=== PATIENT | female | born 1980 | race Caucasian/White ===

== ENCOUNTER 2024-05-04 12:26 | Emergency (ER) | payer OTHER, SELFPAY ==
[2024-05-04] VITALS (11 sets, daily range): BP systolic 106–129; BP diastolic 62–83; PULSE 71–96; RESP 16–23; TEMP 36.8; O2SAT 96–100
--- OUTSIDE RECORDS SUMMARY | 2024-05-04 13:30 | XMS_ITS | Encounter Summary ---
Author Name [facility] [place] [facility] [place] [facility] [place] [facility] [place] Address [address] [place] [address] Care Team Providers Care Outbound Call Center Representative Name Role Phone DAMION STEWART Primary Care Provider Unavailab le Selected Encounter This section includes the information on record at [place] for the Encounter. Date/Time Encounter Type Encounter Description Reason Provider Source Apr 11, 2024 02:15 PM LARYNGOSCOPY TELESCOPIC SPEECH-LANGUAGE PATHOLOGY ICD-10-CM R49.8 Other voice and resonance disorders RACHEL ESPINAL Encounter Template Text not used by [place] Assessments - Encounter Diagnoses This section includes the primary and secondary diagnoses documented for the Encounter. Date/Time Primary/Secondary Diagnosis Diagnosis Name Provider Source Apr 11, 2024 03:12 PM PRIMARY Other voice and resonance disorders KRISTA SEGURA [facility] Plan of Treatment: Future Appointments (+ 6 months) and Future Tests (+/- 45 days) The Plan of Treatment section includes future care activities for the patient from all [place] treatmentfacilities. This section includes future appointments and future orders which are active, pending or scheduled. Future Appointments This section includes appointments that were scheduled to occur 6 months from the date of the Encounter, up to a maximum of 20 appointments. The data comes from all [facility] treatment [facility]. Appointment Date/Time Appointment Type Appointme nt Facility Name Apr 26, 2024 03:00 PM AMBULATORY - MEDICINE [facility] Apr 29, 2024 12:30 PM AMBULATORY - MEDICINE [facility] May 04, 2024 04:15 PM AMBULATORY - MEDICINE [facility] May 24, 2024 02:00 PM AMBULATORY - MEDICINE [facility] May 24, 2024 03:00 PM AMBULATORY - SURGERY [facility] Jul 12, 2024 02:30 PM [facility] Aug 04, 2024 11:30 AM AMBULATORY - SURGERY [facility] Active, Pending, and Scheduled Orders This section includes a listing of several types of active, pending, and scheduled orders, including clinic medications orders, diagnostic test orders, procedure orders and consult orders; where thestart date of the order is 45 days before the date of the Encounter or 45 days after the date of the Encounter. The data comes from all [facility]. Test Date/Time Test Type Test Details Facility Name Apr 11, 2024 04:42 PM Consult Order ALLERGY OU TPT STL Cons Hot Top Liner's Choice [facility] Apr 19, 2024 04:58 PM Procedure Order HOLTER MON ITOR STL CP HOLTER MONITOR STL Proc Hot Top Liner's [facility] Apr 29, 2024 12:00 AM Laboratory - Chemi stry Order HEP C Ab HCV Ab (L) GOLD/RED SST SERUM SP [facility] Apr 29, 2024 01:45 PM Consult Order GYNECOLOGY SERVICES OUTPT Cons [employer] [facility] Apr 29, 2024 01:45 PM Consult Order NEUROLOGY OUTPATIENT [place] Cons [employer] [facility] Apr 29, 2024 01:45 PM Consult Order COMMUNITY CARE-STL SLEEP STUDY Cons [employer] Choice [facility] Lab Results: +/- 30 days of the encounter This section includes the Chemistry and Hematology Lab Results on record with [facility] for the patient. Radiology Reports and Pathology Reports are provided separately, in subsequent sections. Lab Results This section contains the Chemistry/Hematology Results that were resulted 30 days before or 30 daysafter the date of the Encounter. Date/Time Source Result Type Result - Unit Interpretation Reference Range Comment Apr 29, 2024 01:43 PM [facility] TSH W/ REFLEX FT4 (STL) Specimen Type: PLASMA No comment entered. Ordering Provider: LUCIA STEWART Report Released Date/Time: Apr 29, 2024 01:29 PM Reporting Lab: [facility] [address] [place] [phone] Performing Lab: [facility] [address] [place] [phone] TSH 1.940 u[IU]/mL 0.47-5 Apr 29, 2024 01:43 PM [facility] HGA1C Specimen Type: BLOOD No comment entered. Ordering Provider: LUCIA STEWART Report Released Date/Time: Apr 29, 2024 01:29 PM Reporting Lab: [facility] [address] [place] [phone] Performing Lab: [facility] [phone] HGA1C 6.2 H 4.0-6.0 Apr 29, 2024 01:43 PM [facility] LIPID PANEL (STL) Specimen Type: PLASMA Comment: No hemolysis noted. Ordering Provider: LUCIA STEWART Report Released Date/Time: Apr 29, 2024 01:29 PM Reporting Lab: [facility] [address] [place] [phone] Performing Lab: [facility] [address] [place] [phone] CHOLESTEROL 193 mg/dL 0-200 TRIGLYCERIDE 205 mg/dL H 0-150 CALCULATED LDL 112 mg/dL HDL(New) 40 mg/dL >40 Apr 29, 2024 01:43 PM [facility] COMPREHENSIVE METABOLIC PANEL Specimen Type: PLASMA Comment: No hemolysis noted. Ordering Provider: LUCIA STEWART Report Released Date/Time: Apr 29, 2024 01:29 PM Reporting Lab: [facility] [address] [place] [facility] [phone] Performing Lab: [facility] [address] [place] [facility] [phone] CREATININE 0.71 mg/dL 0.6-1.1 UREA NITROGEN 14.0 mg/dL 9.0-25.0 GLUCOSE 83 mg/dL 72-99 SODIUM 137 meq/L 136-145 POTASSIUM 3.9 meq/L 3.5-5 CHLORIDE 107 meq/L 98-107 CARBON DIOXIDE 19 meq/L L 22-31 CALCIUM 9.2 mg/dL 8.4-10.4 PROTEIN 7.7 g/dL 6-8.6 ALBUMIN 4.3 g/dL 3.4-5 TOTAL BILIRUBIN 0.2 mg/dL 0.2-1.2 ALKALINE PHOSPHATASE 113 U/L 40-150 AST/SGOT 45 U/L H 5-34 ALT/SGPT 13 U/L 8-40 EGFR (CKD-EPI 2020) 109.5 >60 Apr 29, 2024 01:43 PM [facility] CBC Specimen Type: BLOOD No comment entered. Ordering Provider: LUCIA STEWART Report Released Date/Time: Apr 29, 2024 01:29 PM Reporting Lab: [facility] [address] [place] [phone] Performing Lab: [address] [phone] WBC 9.3 10*3/uL 3.6-11.2 RBC 5.14 10*6/uL H 3.60-5.00 HGB 12.4 g/dL 11.0-14.9 HCT 39.8 32.6-43.4 MCV 77.4 fL L 80.0-100.0 MCH 24.1 pg L 27.0-34.0 MCHC 31.2 g/dL L 33.0-36.0 PLT 372 10*3/uL 150-400 MPV 9.4 fL 7.5-11.2 RDW 15.5 H 11.8-15.1 LYMPHOCYTES, AUTO % 32 MONOCYTES, AUTO % 7 NEUTROPHILS, AUTO % 58 EOSINOPHILS, AUTO % 2 BASOPHILS, AUTO % 0 LYMPHOCYTES, ABSOLUTE 2.94 10*3/uL 0.77-4.50 MONOCYTES, ABSOLUTE 0.68 10*3/uL 0.19-0.80 NEUTROPHILS, ABSOLUTE 5.37 10*3/uL 2.10-8.00 EOSINOPHILS, ABSOLUTE 0.20 10*3/uL 0.00-0.60 BASOPHILS, ABSOLUTE 0.03 10*3/uL 0.00-0.20 Vital Signs: All taken on the encounter date This section contains inpatient and outpatient Vital Signs collected on the date of the Encounter. Date/Time Temperature Pulse Blood Pressure Respiratory Rate SP02 Pain Height Weight Body Mass Index Source Apr 11, 2024 02:08 PM 97.5 106 128/85 16 97 0 [facility] Social History: Smoking Status (Most current) and Tobacco Use (All prior to encounter date) This section includes the most current, and the historical, smoking and tobacco- related health factors from the [place] facility where the Encounter took place. Current Smoking Status This section includes the most current smoking, or tobacco-related health factor, from the [place] facility where the Encounter took place. Date/Time Current Smoking Status Comment Facil ity Apr 21, 2022 02:46 PM [place]-TOBACCO FORMER USER [facility] Tobacco Use History This section includes a history of the smoking, or tobacco-related health factors, that were collected on or before the date of the Encounter. The data comes from the [place] facility where the Encounter took place. Date/Time Smoking Status/Tobacco Use Comment F acility Apr 21, 2022 02:46 PM [place]-TOBAC[place] QUIT 5 TO < 15 YRS [facility] Mar 06, 2016 10:40 AM LIFETIME NON-USER OF TOBACCO [facility] Advance Directives: All historical and current Section Date Range: From patient's date of to the date document was created. This section includes ALL of a patient's completed or amended [place] Advance and Rescinded Directives. The entries below indicate that a directive exists for the patient, but an actual copy is not included with this document. The data comes from all [place] facilities. Date Advance Directives Provider Source Apr 06, 2015 ADVANCE DIRECTIVE DISCUSSION [facility] Encounter Notes: All associated encounter notes This section contains the clinical notes associated to the Encounter. Date/Time Encounter Note(s) Provider Source Apr 11, 2024 03:05 PM SPEECH PATHOLOGY C ONSULT: LOCAL TITLE: SPEECH CONSULT STL STANDARD TITLE: SPEECH PATHOLOGY CONSULT DATE OF NOTE: APR 11, 2024@15:05 ENTRY DATE: APR 11, 2024@15:05:57 AUTHOR: RACHEL ESPINAL COSIGNER: SHERYL RICHARD URGENCY: STATUS: COMPLETED SPEECH PATHOLOGY VIDEOLARYNGOSCOPY NAME: ALIX GRIMES DATE:APR 11, 2024 PURPOSE OF VISIT: video laryngoscopy DIAGNOSIS: Other voice disturbance RELEVANT HISTORY: Patient reports voice graveling especially when she sings or presents. PATIENT STATED GOAL: none CONSENT: Patient consented to treatment plan. TRACH STATUS: NO SCOPE: __x__Olympus Flexible ____Olympus Rigid PROCEDURE: The scope was inserted after application of Lidocaine spray topical anesthesia, the exam completed, and the scope withdrawn without difficulty or complaint. PREVIOUS EXAMS: n/a CURRENT APPEARANCE: TVCs were smooth/even in color and appearance. Airway was widely patent. BOT, epiglottis, and arytenoids were clear. CURRENT FUNCTION: TVCs were mobile, met at midline for phonation, and presented with full adduction and abduction. MUCOSAL WAVE: Throat lc was placed on patients neck to obtain view of mucosal wave. Patients mucosal wave was present and symmetric. VOICAL QUALITY: Within normal limits EDUCATION PROVIDED: Patient was educated on the results of exam RESPONSE TO EDUCAITON: Patient verbally acknowledged/demonstrated understanding of all education provided this session. GOALS: n/a BARRIERS TO ACHIEVEMENT OF GOALS: n/a PLAN: Evaluate as indicated by ENT /glen/ Rachel Espinal MS, [facility]-INFORMATION ASSURANCE ENGINEER Speech Pathologist, Speech Language Pathology Signed: 04/11/2024 15:19 /glen/ SHERYL RICHARD MD Staff Physician, Otolaryngology Cosigned: 04/11/2024 18:16 RACHEL ESPINAL [facility]
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
--- OUTSIDE RECORDS SUMMARY | 2024-05-04 13:31 | XMS_ITS | Continuity of Care Document ---
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 It does not include entries that were removed or entered in error. 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
02/2003-2004 [place], 09/2005-12/2006 [place], 03/2013-11/2103 [place] Unknown Organization Insomnia Active 020 Condition Unknown Organization Fibromyalgia Active 020 Condition Unknown Organization Irritable bowel syndrome Active 020 Condition Unknown Organization Prediabetes Active 018 Condition Unknown Organization Gynecological examination normal Active 017 Condition Unknown Organization Family planning Active 017 Condition Unknown Organization Anxiety disorder Active 017 Condition Unknown Organization FH: Autoimmune disease Active 017 Condition Unknown Organization Headache Active 017 Condition Unknown Organization Tachycardia Active 017 Condition Unknown Organization Ankle pain Active 017 Condition Unknown Organization Chronic rhinitis Active 016 Condition Unknown Organization Dyspnea on exertion Active 016 Condition Unknown Organization Multiple pulmonary nodules2 Active 016 Condition 03/17/2019 - WEEKS,TOM L
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) Active 013 Condition Unknown Organization Abdominal Pain of the Right Lower Quadrant (ICD-9-CM 789.03) Active 013 Condition Unknown Organization 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) Active 012 Condition Unknown Organization Acute bronchitis (ICD-9-CM 466.0) Active 011 Condition Unknown Organization Pharyngitis * (ICD-9-CM 462.) Active 011 Condition Unknown Organization Asthma, unspecified Active 011 Condition Unknown Organization Goiter * (ICD-9-CM 240.9) Active 011 Condition Unknown Organization Low back pain Active 011 Condition Unknown Organization Hypersensitivity reaction (ICD-9-CM 995.3) Active 011 Condition Unknown Organization Knee: arthralgia * (ICD-9-CM 719.46) Active 011 Condition Unknown Organization Vaginitis * (ICD-9-CM 616.10) Active 011 Condition Unknown Organization Ankle sprain (ICD-9-CM 845.09) Active 010 Condition Unknown Organization Allergic rhinitis * (ICD-9-CM 477.9) Active 010 Condition Unknown Organization Chronic maxillary sinusitis (ICD-9-CM 473.0) Active 009 Condition Unknown Organization Decreased, vision NEC (ICD-9-CM 369.9) Active 009 Condition Unknown Organization Pain in joint involving shoulder region4 Active 009 Condition 07/27/2008 - FIDELIA PANG
Right Unknown Organization Constipation, unspecified Active 009 Condition Unknown Organization Environmental Allergies Active 009 Condition Unknown Organization Hemorrhoids Active 009 Condition Unknown Organization Dermatitis or Eczema Active 009 Condition Unknown Organization Traumatic neurosis3 Active 009 Condition 03/01/2019 - BALJINDER SEVILLA
History of deployment psychological trauma, history of PTSD, currently meets cirteria for Other Specified Trauma-Related Disorder with prediminant anxiety symptoms Unknown Organization Inactive 008 Condition 07/15/2010 May 03, 2008 Entered By: FIDELIA PANG MD Comment: Expected due date: 08/26/2008 [facility] Shoulder Surgery Active 008 Condition Jul 27, 2008 Entered By: FIDELIA PANG MD Comment: Right [facility] Abdominal Pain of the Right Lower Quadrant (ICD-9-CM 789.03) Active Condition [facility] Abnormal cervical Papanicolaou smear Active Condition [facility] Acute bronchitis (ICD-9-CM 466.0) Active Condition [facility] Acute sinusitis Active Condition [facility] Allergic rhinitis * (ICD-9-CM 477.9) Active Condition [facility] Ankle pain Active Condition [facility] Ankle sprain (ICD-9-CM 845.09) Active Condition [facility] Anxiety disorder Active Condition [facility] Asthma, unspecified Active Condition [facility] Benign neoplasm of female breast (SNOMED CT 86612305) Active Condition [facility] Chronic maxillary sinusitis (ICD-9-CM 473.0) Active Condition [facility] Chronic post-traumatic stress disorder Active Condition [facility] Chronic rhinitis Active Condition [facility] Cognitive disorder Active Condition [facility] Constipation, unspecified Active Condition [facility] Contraception, counseling NEC (ICD-9-CM V25.09) Active Condition [facility] Cyst of thyroid Active Condition [facility] Decreased, vision NEC (ICD-9-CM 369.9) Active Condition [facility] Dermatitis or Eczema Active Condition [facility] Dyspnea on exertion Active Condition [facility] Environmental Allergies Active Condition [facility] Exposure to potentially hazardous substance Active Condition [facility] Family planning Active Condition [facility] FH: Autoimmune disease Active Condition [facility] Fibromyalgia Active Condition [facility] Goiter * (ICD-9-CM 240.9) Active Condition [facility] Atlantic war syndrome Active Condition [facility] Gynecological examination normal Active Condition [facility] Headache Active Condition [facility] Hemorrhoids Active Condition [facility] History of deployment Active Condition Mar 01, 2019 Entered By: BALJINDER SEVILLA Comment: 02/2003-02/2004 [place], 09/2005-12/2006 [place], 03/2013-11/2103 [place] [facility] history of recurrant perianal abcess Active Condition [facility] House dust mite allergy Active Condition [facility] Hypersensitivity reaction (ICD-9-CM 995.3) Active Condition [facility] IBS - Irritable bowel syndrome Active Condition [facility] Insomnia Active Condition [facility] Irritable bowel syndrome Active Condition [facility] Knee: arthralgia * (ICD-9-CM 719.46) Active Condition [facility] Low back pain Active Condition [facility] Low Back Pain * (ICD-9-CM 724.2) Active Condition [facility] Multiple pulmonary nodules Active Condition [facility] Multiple pulmonary nodules Active Condition Mar 17, 2019 Entered By: TOM RM Comment: Seen on CT CHEST JULY 2015 [facility] Otitis Media with Effusion * (ICD-9-CM 381.4) Active Condition [facility] Pain in joint involving shoulder region Active Condition Jul 27, 2008 Entered By: FIDELIA PANG MD Comment: Right [facility] Palpitations Active Condition [facility] Pharyngitis * (ICD-9-CM 462.) Active Condition [facility] Posttraumatic Stress Disorder * (ICD-9-CM 309.81) Active Condition [facility] Prediabetes Active Condition [facility] Routine Gynecological examination (ICD-9-CM V72.31) Active Condition [facility] Tachycardia Active Condition [facility] 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) Active Condition [facility] Traumatic neurosis Active Condition J an 2019 Entered By: BALJINDER SEVILLA Comment: History of deployment psychological trauma, history of PTSD, currently meets cirteria for Other Specified Trauma-Related Disorder with prediminant anxiety symptoms [facility] Unspecified Psychosocial Circumstance Active Condition [facility] 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-CM 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.15) Active Condition June 23, 2012 Entered By: STACI ZHAO Comment: repeat Pap in June of 2013; if HPV pos will get colpoMay 2012 Entered By: STACI ZHAO Comment: even if Pap smear is still negative [facility] Vaginal Neoplasm (ICD-9-CM 239.5) Active Condition [facility] Vaginitis * (ICD-9-CM 616.10) Active Condition [facility] Vitamin D deficiency Active Condition [facility] Adjustment Disorder with Mixed Anxiety and Depressed Mood (ICD-9-CM 309.28) Inactive Condition 07/15/2010 [facility] Anxiety * (ICD-9-CM 300.00/300.09) Inactive Condition 07/15/2010 [facility] Major Depression, recurrent (ICD-9-CM 296.30) Inactive Condition 07/15/2010 [facility] Panic Disorder * (ICD-9-CM 300.01) Inactive Condition 07/15/2010 [facility] Diagnosis: ICD-10-CM R00.0 Tachycardia, unspecified Active Diagnosis [facility] Diagnosis: ICD-10-CM R49.0 Dysphonia Active Diagnosis [facility] Diagnosis: ICD-10-CM R49.8 Other voice and resonance disorders Active Diagnosis [facility] Diagnosis: ICD-10-CM F43.12 Post-traumatic stress disorder, chronic Active Diagnosis [facility] Diagnosis: ICD-10-CM Z63.0 Problems in relationship with spouse or partner Active Diagnosis [facility] Diagnosis: ICD-10-CM Z71.81 Spiritual or zoroastrian counseling Active Diagnosis [facility] Diagnosis: ICD-10-CM Z63.4 Disappearance and of family member Active Diagnosis [facility] Diagnosis: ICD-10-CM F43.23 Adjustment disorder with mixed anxiety and depressed mood Active Diagnosis [facility] Diagnosis: ICD-10-CM F32.A Depression, unspecified Active Diagnosis [facility] Diagnosis: ICD-10-CM N97.9 Female infertility, unspecified Active Diagnosis [facility] Medications Combined list of outpatient medications from Department of Defense and [facility] Affairs facilities.Medications provided include 1) outpatient medications from the last 15 months, and 2) patient-reported medications. Medication Details Route Status Patient Instructions Prescription Expires Prescription Number Last Dispense Date Ordering Provider Order Date Order Qty Source ALBUTEROL SO4 0.083% INHL,3ML INHALE 1 VIAL (2.5MG/3 ML) BY NEBULIZA TION EVERY 6 HOURS NEEDED FOR ASTHMA NEBULI ZATION SUSPEND ED 12/01/2024 [id number] DEPEFRAINS UZAMEDINAE 2023 30 [facility] ALBUTEROL SO4 90MCG/ACTUA T (CFC-F) INHL,ORAL,8 .5GM INHALE 2 PUFFS BY ORAL INHALATI ON FOUR TIMES A DAY NEEDED FOR ASTHMA SHAKE WELL. RINSE MOUTHPIE CE FREQUENT LY TO PREVENT CLOGGING . RESPIR ATORY (INHAL ATION) SUSPEND ED 12/01/2024 [id number] DEPAURADHA,S UZANNE 2023 2 [facility] CELECOXIB 200MG CAP TAKE ONE CAPSULE BY MOUTH ONCE A DAY FOR PAIN - TAKE WITH FOOD ORAL ACTIVE 12/01/2024 [id number] 5 DEPAULO,S UZANNE 2024 90 [facility] CELECOXIB 200MG CAP TAKE ONE CAPSULE BY MOUTH ONCE A DAY FOR PAIN - TAKE WITH FOOD ORAL DISCONT INUED 03/03/2024 [id number] Pieter STEWART 2023 90 [facility] CETIRIZINE HCL 10MG TAB TAKE ONE TABLET BY MOUTH ONCE A DAY FOR ALLERGY SYMPTOMS . ORAL SUSPEND ED 12/01/2024 [id number] 5 Pieter STEWART 2023 90 [facility] CETIRIZINE HCL 10MG TAB TAKE ONE TABLET BY MOUTH ONCE A DAY FOR ALLERGY SYMPTOMS . ORAL DISCONT INUED 11/04/2023 [id number] BINH BELLAMY 2022 30 [facility] CHOLECALCIF MOMO 50MCG (2,000UNIT) TAB TAKE TWO TABLETS BY MOUTH ONCE A DAY FOR VITAMIN D DEFICIEN CY. ORAL SUSPEND ED 12/01/2024 [id number] 5 TALONPieter 2023 200 [facility] CHOLECALCIF MOMO 50MCG (2,000UNIT) TAB TAKE TWO TABLETS BY MOUTH ONCE A DAY FOR VITAMIN D DEFICIEN CY. ORAL DISCONT INUED 11/04/2023 [id number] 4 BINH BELLAMY 2022 200 [facility] DIPHENHYDRA MINE HCL 25MG CAP TAKE ONE CAPSULE BY MOUTH TWICE DAILY NEEDED ANXIETY/ INSOMNIA *MAY CAUSE DROWSINE SS* ORAL 12/13/2023 [id number] LEWIS BAUTISTA 2023 1 [facility] N DULOXETINE HCL 20MG CAP,EC TAKE TWO CAPSULES BY MOUTH TWICE A DAY FOR DEPRESSI ON DO NOT ABRUPTLY DISCONTI NUE MEDICATI ON. ORAL ACTIVE 11/03/2024 [id number] 5 LEWIS BAUTISTA 2023 360 [facility] N DULOXETINE HCL 20MG CAP,EC TAKE TWO CAPSULES BY MOUTH ONCE A DAY FOR FIBROMYA LGIA DO NOT ABRUPTLY DISCONTI NUE MEDICATI ON. ORAL DISCONT INUED (EDIT) 11/04/2023 [id number] 4 BINH BELLAMY A 2022 180 [facility] DULOXETINE HCL 60MG CAP,EC TAKE ONE CAPSULE BY MOUTH ONCE A DAY DO NOT ABRUPTLY DISCONTI NUE MEDICATI ON. ORAL ACTIVE 01/05/2025 [id number] LEWIS BAUTISTA 2023 90 [facility] N DULOXETINE HCL 60MG CAP,EC TAKE ONE CAPSULE BY MOUTH ONCE A DAY FOR DEPRESSI ON DO NOT ABRUPTLY DISCONTI NUE MEDICATI ON. ORAL DISCONT INUED 11/13/2024 [id number] LEWIS BAUTISTA 2023 90 [facility] DULOXETINE HCL 60MG CAP,EC TAKE ONE CAPSULE BY MOUTH ONCE A DAY DO NOT ABRUPTLY DISCONTI NUE MEDICATI ON. ORAL DISCONT INUED (EDIT) 07/23/2024 [id number] 4 LEWIS BAUTISTA 2023 90 [facility] N DULOXETINE HCL 60MG CAP,EC TAKE ONE CAPSULE BY MOUTH ONCE A DAY DO NOT ABRUPTLY DISCONTI NUE MEDICATI ON. ORAL DISCONT INUED 05/22/2024 [id number] Pieter STEWART 2023 90 [facility] EPINEPHRINE (EQV-ADRENA CLICK) 0.3MG/0.3ML INJECTOR INJECT 1 PEN (0.3MG/0 .3ML) INTRAMUS CULARLY ONE-TIME FOR ALLERGIC REACTION INTRAM USCULA R 06/18/2023 [id number] BINH BELLAMYA A 2022 2 [facility] METHOCARBAM OL 500MG TAB TAKE 1 TABLET BY MOUTH FOUR TIMES A DAY NEEDED FOR MUSCLE SPASM ORAL 03/03/2024 [id number] Pieter STEWART 2023 60 [facility] METHYLPREDN ISOLONE 4MG TAB DOSEPAK,21 TAKE ONE TABLET BY MOUTH DIRECTED ORAL ACTIVE YENNI ZHAO 2010 [facility] METOPROLOL SUCCINATE 50MG TAB,SA TAKE ONE-HALF TABLET BY MOUTH ONCE A DAY FOR TACHYCAR KARSON SWALLOW WHOLE, DO NOT CRUSH OR CHEW (TABLETS MAY BE CUT IN HALF). ORAL ACTIVE 07/28/2024 [id number] 5 Pieter STEWART 2024 45 [facility] MIRTAZAPINE 30MG TAB TAKE ONE-HALF TABLET BY MOUTH AT BEDTIME FOR 7 DAYS, THEN TAKE ONE TABLET AT BEDTIME FOR 14 DAYS, THEN TAKE ONE AND ONE-HALF TABLETS AT BEDTIME FOR 60 DAYS FOR DEPRESSI ON ORAL 01/23/2024 [id number] LEWIS BAUTISTA 2023 108 [facility] MIRTAZAPINE 45MG TAB TAKE ONE TABLET BY MOUTH ONCE A DAY FOR DEPRESSI ON ORAL ACTIVE 04/09/2025 [id number] LEWIS BAUTISTA 2024 90 [facility] MIRTAZAPINE 45MG TAB TAKE ONE TABLET BY MOUTH ONCE A DAY ORAL DISCONT INUED (EDIT) 01/05/2025 [id number] LEWIS BAUTISTA 2023 90 [facility] OMEPRAZOLE 20MG CAP,EC TAKE ONE CAPSULE BY MOUTH EVERY MORNING BEFORE A MEAL TAKE 30 MINUTES PRIOR TO FOOD. ORAL SUSPEND ED 12/01/2024 [id number] 5 Pieter STEWARTZAANDRE 2023 90 [facility] OMEPRAZOLE 20MG CAP,EC TAKE ONE CAPSULE BY MOUTH EVERY MORNING BEFORE A MEAL TAKE 30 MINUTES PRIOR TO FOOD. ORAL DISCONT INUED 07/09/2024 [id number] Pieter STEWARTZANNE 2023 90 [facility] PROCHLORPER AZINE MALEATE 10MG TAB TAKE ONE TABLET BY MOUTH EVERY 6 HOURS NEEDED FOR HEADACHE . *MAY CAUSE DROWSINE SS* ORAL ACTIVE 05/09/2024 [id number] FLAQUITA NOVAK 2024 6 [facility] TRAZODONE HCL 50MG TAB TAKE ONE TABLET BY MOUTH AT BEDTIME FOR MOOD OR SLEEP. ORAL ACTIVE 07/23/2024 [id number] 5 LEWIS BAUTISTA 2023 90 [facility] N TRAZODONE HCL 50MG TAB TAKE ONE TABLET BY MOUTH AT BEDTIME FOR MOOD OR SLEEP. ORAL DISCONT INUED 05/22/2024 [id number] Pieter STEWARTZAANDRE 2023 90 [facility] TRAZODONE HCL 50MG TAB TAKE ONE-HALF TABLET BY MOUTH AT BEDTIME FOR MOOD OR SLEEP. ORAL DISCONT INUED (EDIT) 11/04/2023 [id number] BINH BELLAMY 2022 45 [facility] ZZNO REPORTED USAGE(OTC,N ONVA,HERBAL ) MISCELLBANNERO US USE PER PATIENT INTERVIE W ORAL ACTIVE FIDELIA PANG MD 2008 [facility] Allergies, Adverse Reactions, Alerts Combined list of allergies from Department of 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 It does not include entries that were removed or entered in error. Substance Category Reaction Severity Reaction type Status Date Reported Comments Source BEE STINGS Propensity to adverse reaction (finding) Anaphylaxis , Pharyngeal swelling active 9 [facility] BEE VENOM Propensity to adverse reaction (finding) active 2 [facility] Bee Venom Allergy to substance Dyspnea (finding), Pharyngeal swelling (finding), Anaphylaxis (disorder) Active 06/06/2021 19:02 UTC - SANDI BELLAMY

unknown if urticaria or something more serious One or More [facility] RV SERVICE TECHNICIAN Cat Dander Allergy to substance Nasal congestion (finding), Urticaria (disorder) Active One or More [facility] Facilit[facility] es RV SERVICE TECHNICIAN CATS Propensity to adverse reaction (finding) Urticaria, Nasal congestion active 9 [facility] Dust mite Allergy to substance Eye swelling (finding), Nasal congestion (finding), Urticaria (disorder) Active One or More [facility] Fac[facility] RV SERVICE TECHNICIAN DUST MITE FECES Propensity to adverse reaction (finding) active 9 [facility] Dust mite feces Allergy to substance Active One or More [facility] Faciliti es RV SERVICE TECHNICIAN DUST MITES Propensity to adverse reaction (finding) Urticaria, Nasal congestion, Swelling of structure of eye active 9 [facility] flu vaccines Drug allergy Nausea and vomiting (disorder), Syncope (disorder) Active 12/04/2014 19:[address] [facility] SAMI GARCIA

Per pt and documentati on from other [facility] experienced
nausea from influenza A H1N1 vaccine One or More [facility] Facilit[facility] es RV SERVICE TECHNICIAN INFLUENZA Propensity to adverse reactions to drug (finding) Nausea and vomiting active 5 [facility] INFLUENZA Propensity to adverse reactions to drug (finding) Syncope active 6 [facility] INFLUENZA Propensity to adverse reactions to drug (finding) active 9 [facility] INFLUENZA A (H1N1) Propensity to adverse reactions to drug (finding) Nausea active 1 [facility] Influenza A virus subtype H1N1 vaccine Drug allergy Nausea (finding) Active One or More [facility] Facilit[facility] es RV SERVICE TECHNICIAN LATEX Propensity to adverse reactions to drug (finding) Eruption active 5 [facility] LATEX GLOVE Propensity to adverse reactions to drug (finding) Urticaria active 6 [facility] LATEX GLOVE Propensity to adverse reactions to drug (finding) active 9 [facility] LATEX STRAP Propensity to adverse reactions to drug (finding) Swelling active 0 [facility] Latex Drug allergy Eruption of skin (disorder), Urticaria (disorder), Eruption of skin (disorder), Swelling (finding) Active 07/20/2015 13:38 [facility] - LEA CUEVAS<b r/>
Upd ated using clean up process. Changed reactant from LATEX (ingredient ) to LATEX GLOVE(file - PSNDF(50.6, )

< br/> 012 13:35 UT - KARLA JIANG NIKOLAS

Updated using clean up process. Changed reactant from LATEX (ingredient ) to LATEX STRAP(file - PSNDF(50.6, )

< br/> 010 15:58 UT - JUAN MCCOY
<b r/>notes when in contact with latex bandages swelling /redness
with no other systemic issues One or More [facility] Fac[facility] es RV SERVICE TECHNICIAN OLIVE TREE POLLEN Propensity to adverse reaction (finding) active 9 [facility] Fenwick Tree Pollen Allergy to substance Nasal congestion (finding), Eye swelling (finding), Urticaria (disorder) Active One or More [facility] Facilit[facility] es RV SERVICE TECHNICIAN OLIVE TREES Propensity to adverse reaction (finding) Urticaria, Swelling of structure of eye, Nasal congestion active 9 [facility] RAGWEED Propensity to adverse reaction (finding) Urticaria, Swelling of structure of eye, Nasal congestion active 9 [facility] RAGWEED Propensity to adverse reaction (finding) active 9 [facility] Ragweed Allergy to substance Nasal congestion (finding), Eye swelling (finding), Urticaria (disorder) Active One or More [facility] Fac[facility] es RV SERVICE TECHNICIAN Vaccine Drug allergy Active 05/22/2012 20:38 [facility] - DEE ALFARO

H1n1 vaccine One or More [facility] Fac[facility] es RV SERVICE TECHNICIAN VACCINES Propensity to adverse reactions to drug (finding) active 9 [facility] Immunizations Combined list of available immunizations from the Department of 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 Immunization Series Date Given Administered By Site Reaction Lot Number CVX Code Drug Underwriting Operations Manager Status Comments Source TDAP 2021 115 complet ed [facility] tetanus, diphtheria, acellular pertu is 2021 115 complet ed tetanus, diphtheri a, acellular pertussis 10/28/21 Recorded Ambulat ory Pharmac y PNEUMOCOCCAL, UNSPECIFIED FORMULATION 2011 PRATIK IVERSON NONE 109 complet ed 0.5ml given IM in right deltoid. Lot#: [id number]. Exp: [facility] pneumococcal polysaccharid e, 23 valent 2011 33 complet ed pneumococ eric polysacch aride, 23 valent 11/04/11 Recorded Ambulat ory Pharmac y pneumococcal vaccine, unspecified 2011 109 complet ed Result Comment: 0.5ml given IM in right deltoid. Lot#: [id number]. Exp: 3. Ambulat ory Pharmac y PNEUMOCOCCAL POLYSACCHARID E PPV23 2011 33 complet ed [facility] pneumococcal vaccine, unspecified 2011 109 complet ed pneumococ eric vaccine, unspecifi ed 02/09/11 Recorded Ambulat ory Pharmac y PNEUMOCOCCAL, UNSPECIFIED FORMULATION 2011 109 complet ed [facility] Novel influenza-H1N 1-09, all formul 2009 128 complet ed Novel influenza -W2T0-15, all formul 05/10/09 Recorded Ambulat ory Pharmac y NOVEL INFLUENZA-H1N 1-09, ALL FORMULATIONS 2009 128 complet ed [facility] Td(adult) unspecified formulation 2008 139 complet ed Td(adult) unspecifi ed formulati on 02/10/08 Recorded Ambulat ory Pharmac y TD(ADULT) UNSPECIFIED FORMULATION 2008 139 complet ed [facility] tetanus toxoid unspecified formulation 2002 112 complet ed tetanus toxoid unspecifi ed formulati on 03/12/02 Recorded Ambulat ory Pharmac y TETANUS GIVEN OUTSIDE (HISTORICAL) 2002 112 complet ed [employer] Results Combined list of recent chemistry, hematology and other laboratory results from Department of Defense and Veterans Affairs, ranging from 15 months to all on record, depending upon the facility. Order Name Results Value Reference Range Date Interpretation Specimen Comments Source TSH W/ REFLEX FT4 (STL) THYROTROPIN [UNITS/VOLU ME] IN SERUM OR PLASMA 1.940 u[IU]/ mL 0.47 - 5 04/29 Specimen Type: PLASMA No comment entered. Ordering Provider: LUCIA STEWART Report Released Date/Time: Apr 29, 2024 01:29 PM Reporting Lab[facility] [address] [facility] [address] Performing Lab: [address] [address] [facility] HGA1C HEMOGLOBIN A1C/HEMOGLO BIN.TOTAL IN BLOOD 6.2 4.0 - 6.0 04/29 H Specimen Type: BLOOD No comment entered. Ordering Provider: LUCIA STEWART Report Released Date/Time: Apr 29, 2024 01:29 PM Reporting Lab: [facility] [address] [facility] [address] Performing Lab: [facility] [address] [place] [phone] [facility] LIPID PANEL (STL) CHOLESTEROL [MASS/VOLUM E] IN SERUM OR PLASMA 193 mg/dL 0 - 200 04/29 Specimen Type: PLASMA Comment: No hemolysis noted. Ordering Provider: LUCIA STEWART Report Released Date/Time: Apr 29, 2024 01:29 PM Reporting Lab: [facility] [address] [facility] [address] Performing Lab: [facility] [address] [facility] [address] [facility] LIPID PANEL (STL) TRIGLYCERID E [MASS/VOLUM E] IN SERUM OR PLASMA 205 mg/dL 0 - 150 04/29 H Specimen Type: PLASMA Comment: No hemolysis noted. Ordering Provider: LUCIA STEWART Report Released Date/Time: Apr 29, 2024 01:29 PM Reporting Lab: [facility] [address] [facility] [address] Performing Lab: [facility] [address] [facility] LIPID PANEL (STL) CHOLESTEROL IN LDL [MASS/VOLUM E] IN SERUM OR PLASMA BY CALCULATION 112 mg/dL 04/29 Specimen Type: PLASMA Comment: No hemolysis noted. Ordering Provider: LUCIA STEWART Report Released Date/Time: Apr 29, 2024 01:29 PM Reporting Lab: [place] [address] [facility] [address] Performing Lab: [address] [address] [facility] LIPID PANEL (L) CHOLESTEROL IN HDL [MASS/VOLUM E] IN SERUM OR PLASMA 40 mg/dL 40 04/29 Specimen Type: PLASMA Comment: No hemolysis noted. Ordering Provider: LUCIA STEWART Report Released Date/Time: Apr 29, 2024 01:29 PM Reporting Lab: [place] [address] [facility] [address] Performing Lab: [address] [address] [facility] COMPREHENS BRAN METABOLIC PANEL CREATININE [MASS/VOLUM E] IN SERUM OR PLASMA 0.71 mg/dL 0.6 - 1.1 04/29 Specimen Type: PLASMA Comment: No hemolysis noted. Ordering Provider: LUCIA STEWART Report Released Date/Time: Apr 29, 2024 01:29 PM Reporting Lab: [address] [address] Performing Lab: [address] [address] [facility] COMPREHENS BRAN METABOLIC PANEL UREA NITROGEN [MASS/VOLUM E] IN SERUM OR PLASMA 14.0 mg/dL 9.0 - 25.0 04/29 Specimen Type: PLASMA Comment: No hemolysis noted. Ordering Provider: LUCIA STEWART Report Released Date/Time: Apr 29, 2024 01:29 PM Reporting Lab: [facility] [address] [facility] [address] Performing Lab: [facility] [address] [facility] [address] [facility] COMPREHENS BRAN METABOLIC PANEL GLUCOSE [MASS/VOLUM E] IN SERUM OR PLASMA 83 mg/dL 72 - 99 04/29 Specimen Type: PLASMA Comment: No hemolysis noted. Ordering Provider: LUCIA STEWART Report Released Date/Time: Apr 29, 2024 01:29 PM Reporting Lab: [facility] [address] [facility] [address] Performing Lab: [facility] [address] [place] [phone] [facility] COMPREHENS BRAN METABOLIC PANEL SODIUM [MOLES/VOLU ME] IN SERUM OR PLASMA 137 meq/L 136 - 145 04/29 Specimen Type: PLASMA Comment: No hemolysis noted. Ordering Provider: LUCIA STEWART Report Released Date/Time: Apr 29, 2024 01:29 PM Reporting Lab: [facility] [address] [facility] [address] Performing Lab: [facility] [address] [facility] [address] [facility] COMPREHENS BRAN METABOLIC PANEL POTASSIUM [MOLES/VOLU ME] IN SERUM OR PLASMA 3.9 meq/L 3.5 - 5 04/29 Specimen Type: PLASMA Comment: No hemolysis noted. Ordering Provider: LUCIA STEWART Report Released Date/Time: Apr 29, 2024 01:29 PM Reporting Lab: [facility] [address] [facility] [address] Performing Lab: [facility] [address] [place] [phone] [facility] COMPREHENS BRAN METABOLIC PANEL CHLORIDE [MOLES/VOLU ME] IN SERUM OR PLASMA 107 meq/L 98 - 107 04/29 Specimen Type: PLASMA Comment: No hemolysis noted. Ordering Provider: LUCIA STEWART Report Released Date/Time: Apr 29, 2024 01:29 PM Reporting Lab: [facility] [address] [facility] [address] Performing Lab: [facility] [address] [facility] [address] [facility] COMPREHENS BRAN METABOLIC PANEL CARBON DIOXIDE, TOTAL [MOLES/VOLU ME] IN SERUM OR PLASMA 19 meq/L 22 - 31 04/29 L Specimen Type: PLASMA Comment: No hemolysis noted. Ordering Provider: LUCIA STEWART Report Released Date/Time: Apr 29, 2024 01:29 PM Reporting Lab: [facility] [address] [facility] [address] Performing Lab: [facility] [address] [place] [address] [facility] COMPREHENS BRAN METABOLIC PANEL CALCIUM [MASS/VOLUM E] IN SERUM OR PLASMA 9.2 mg/dL 8.4 - 10.4 04/29 Specimen Type: PLASMA Comment: No hemolysis noted. Ordering Provider: LUCIA STEWART Report Released Date/Time: Apr 29, 2024 01:29 PM Reporting Lab: [facility] [address] [facility] [address] Performing Lab: [facility] [address] [facility] [address] [facility] COMPREHENS BRAN METABOLIC PANEL PROTEIN [MASS/VOLUM E] IN SERUM OR PLASMA 7.7 g/dL 6 - 8.6 04/29 Specimen Type: PLASMA Comment: No hemolysis noted. Ordering Provider: LUCIA STEWART Report Released Date/Time: Apr 29, 2024 01:29 PM Reporting Lab: [facility] [address] [facility] [address] Performing Lab: [facility] [address] [place] [phone] [place] [address] COMPREHENS BRAN METABOLIC PANEL ALBUMIN [MASS/VOLUM E] IN SERUM OR PLASMA 4.3 g/dL 3.4 - 5 04/29 Specimen Type: PLASMA Comment: No hemolysis noted. Ordering Provider: LUCIA STEWART Report Released Date/Time: Apr 29, 2024 01:29 PM Reporting Lab: [facility] [address] [facility] [address] Performing Lab: [facility] [address] [facility] [phone] [place] [address] COMPREHENS BRAN METABOLIC PANEL BILIRUBIN.T OTAL [MASS/VOLUM E] IN SERUM OR PLASMA 0.2 mg/dL 0.2 - 1.2 04/29 Specimen Type: PLASMA Comment: No hemolysis noted. Ordering Provider: LUCIA STEWART Report Released Date/Time: Apr 29, 2024 01:29 PM Reporting Lab: [place] [address] [facility] [address] Performing Lab: [facility] [address] [facility] [address] [facility] COMPREHENS BRAN METABOLIC PANEL ALKALINE PHOSPHATASE [ENZYMATIC ACTIVITY/VO LUME] IN SERUM OR PLASMA 113 U/L 40 - 150 04/29 Specimen Type: PLASMA Comment: No hemolysis noted. Ordering Provider: LUCIA STEWART Report Released Date/Time: Apr 29, 2024 01:29 PM Reporting Lab: [facility] [address] [facility] [address] Performing Lab: [facility] [address] [facility] [address] [facility] COMPREHENS BRAN METABOLIC PANEL ASPARTATE AMINOTRANSF ERASE [ENZYMATIC ACTIVITY/VO LUME] IN SERUM OR PLASMA 45 U/L 5 - 34 04/29 H Specimen Type: PLASMA Comment: No hemolysis noted. Ordering Provider: LUCIA STEWART Report Released Date/Time: Apr 29, 2024 01:29 PM Reporting Lab: [facility] [address] [facility] [address] Performing Lab: [facility] [address] [facility] [address] [facility] COMPREHENS BRAN METABOLIC PANEL ALANINE AMINOTRANSF ERASE [ENZYMATIC ACTIVITY/VO LUME] IN SERUM OR PLASMA 13 U/L 8 - 40 04/29 Specimen Type: PLASMA Comment: No hemolysis noted. Ordering Provider: LUCIA STEWART Report Released Date/Time: Apr 29, 2024 01:29 PM Reporting Lab: [facility] [address] [facility] [address] Performing Lab: [facility] [address] [facility] [phone] [place] [address] COMPREHENS BRAN METABOLIC PANEL GLOMERULAR FILTRATION RATE/1.73 SQ M.PREDICTED [VOLUME RATE/AREA] IN SERUM, PLASMA OR BLOOD BY CREATININE- BASED FORMULA (CKD-EPI 2020) 109.5 60 04/29 Specimen Type: PLASMA Comment: No hemolysis noted. Ordering Provider: LUCIA STEWART Report Released Date/Time: Apr 29, 2024 01:29 PM Reporting Lab: [facility] [address] Performing Lab: [facility] [phone] [place] [address] CBC LEUKOCYTES [#/VOLUME] IN BLOOD BY AUTOMATED COUNT 9.3 10*3/u L 3.6 - 11.2 04/29 Specimen Type: BLOOD No comment entered. Ordering Provider: LUCIA STEWART Report Released Date/Time: Apr 29, 2024 01:29 PM Reporting Lab: [facility] [address] [facility] [address] Performing Lab: [facility] [address] [facility] [address] [facility] CBC ERYTHROCYTE S [#/VOLUME] IN BLOOD BY AUTOMATED COUNT 5.14 10*6/u L 3.60 - 5.00 04/29 H Specimen Type: BLOOD No comment entered. Ordering Provider: LUCIA STEWART Report Released Date/Time: Apr 29, 2024 01:29 PM Reporting Lab: [facility] [address] [place] [address] Performing Lab: [facility] [address] [place] [phone] [facility] CBC HEMOGLOBIN [MASS/VOLUM E] IN BLOOD 12.4 g/dL 11.0 - 14.9 04/29 Specimen Type: BLOOD No comment entered. Ordering Provider: LUCIA STEWART Report Released Date/Time: Apr 29, 2024 01:29 PM Reporting Lab: [facility] [address] [place] [address] Performing Lab: [address] [phone] [place] [address] CBC HEMATOCRIT [VOLUME FRACTION] OF BLOOD 39.8 32.6 - 43.4 04/29 Specimen Type: BLOOD No comment entered. Ordering Provider: LUCIA STEWART Report Released Date/Time: Apr 29, 2024 01:29 PM Reporting Lab: [facility] [address] [place] [address] Performing Lab: [facility] [address] [place] [phone] [facility] CBC MCV [ENTITIC VOLUME] BY AUTOMATED COUNT 77.4 fL 80.0 - 100.0 04/29 L Specimen Type: BLOOD No comment entered. Ordering Provider: LUCIA STEWART Report Released Date/Time: Apr 29, 2024 01:29 PM Reporting Lab: [facility] [address] [place] [phone] Performing Lab: [facility] [address] [place] [phone] [facility] CBC MCH [ENTITIC MASS] BY AUTOMATED COUNT 24.1 pg 27.0 - 34.0 04/29 L Specimen Type: BLOOD No comment entered. Ordering Provider: LUCIA STEWART Report Released Date/Time: Apr 29, 2024 01:29 PM Reporting Lab: [facility] [address] [place] [phone] Performing Lab: [facility] [address] [place] [phone] [facility] CBC MCHC [MASS/VOLUM E] BY AUTOMATED COUNT 31.2 g/dL 33.0 - 36.0 04/29 L Specimen Type: BLOOD No comment entered. Ordering Provider: LUCIA STEWART Report Released Date/Time: Apr 29, 2024 01:29 PM Reporting Lab: [facility] [address] [place] [phone] Performing Lab: [facility] [address] [place] [phone] [place] [address] CBC PLATELETS [#/VOLUME] IN BLOOD BY AUTOMATED COUNT 372 10*3/u L 150 - 400 04/29 Specimen Type: BLOOD No comment entered. Ordering Provider: LUCIA STEWART Report Released Date/Time: Apr 29, 2024 01:29 PM Reporting Lab: [facility] [address] [place] [phone] Performing Lab: [facility] [address] [place] [phone] [facility] CBC PLATELET MEAN VOLUME [ENTITIC VOLUME] IN BLOOD BY AUTOMATED COUNT 9.4 fL 7.5 - 11.2 04/29 Specimen Type: BLOOD No comment entered. Ordering Provider: LUCIA STEWART Report Released Date/Time: Apr 29, 2024 01:29 PM Reporting Lab: [facility] [address] [place] [phone] Performing Lab: [facility] [address] [place] [phone] [facility] CBC ERYTHROCYTE DISTRIBUTIO N WIDTH [RATIO] BY AUTOMATED COUNT 15.5 11.8 - 15.1 04/29 H Specimen Type: BLOOD No comment entered. Ordering Provider: LUCIA STEWART Report Released Date/Time: Apr 29, 2024 01:29 PM Reporting Lab: [facility] [address] [facility] [address] Performing Lab: [facility] [address] [facility] [address] [facility] CBC LYMPHOCYTES /100 LEUKOCYTES IN BLOOD BY AUTOMATED COUNT 32 04/29 Specimen Type: BLOOD No comment entered. Ordering Provider: LUCIA STEWART Report Released Date/Time: Apr 29, 2024 01:29 PM Reporting Lab: [facility] [address] [facility] [address] Performing Lab: [facility] [address] [facility] [address] [facility] CBC MONOCYTES/1 00 LEUKOCYTES IN BLOOD BY AUTOMATED COUNT 7 04/29 Specimen Type: BLOOD No comment entered. Ordering Provider: LUCIA STEWART Report Released Date/Time: Apr 29, 2024 01:29 PM Reporting Lab: [facility] [address] [facility] [address] Performing Lab: [facility] [address] [facility] [address] [facility] CBC NEUTROPHILS /100 LEUKOCYTES IN BLOOD BY AUTOMATED COUNT 58 04/29 Specimen Type: BLOOD No comment entered. Ordering Provider: LUCIA STEWART Report Released Date/Time: Apr 29, 2024 01:29 PM Reporting Lab: [facility] [address] [facility] [address] Performing Lab: [facility] [address] [facility] [address] [facility] CBC EOSINOPHILS /100 LEUKOCYTES IN BLOOD BY AUTOMATED COUNT 2 04/29 Specimen Type: BLOOD No comment entered. Ordering Provider: LUCIA STEWART Report Released Date/Time: Apr 29, 2024 01:29 PM Reporting Lab: [facility] [address] [facility] [address] Performing Lab: [facility] [address] [facility] [address] [facility] CBC BASOPHILS/1 00 LEUKOCYTES IN BLOOD BY AUTOMATED COUNT 0 04/29 Specimen Type: BLOOD No comment entered. Ordering Provider: LUCIA STEWART Report Released Date/Time: Apr 29, 2024 01:29 PM Reporting Lab: [facility] [address] [facility] [address] Performing Lab: [facility] [address] [facility] [address] [facility] CBC LYMPHOCYTES [#/VOLUME] IN BLOOD BY AUTOMATED COUNT 2.94 10*3/u L 0.77 - 4.50 04/29 Specimen Type: BLOOD No comment entered. Ordering Provider: LUCIA STEWART Report Released Date/Time: Apr 29, 2024 01:29 PM Reporting Lab: [facility] [address] [facility] [address] Performing Lab: [facility] [address] [facility] [address] [facility] CBC MONOCYTES [#/VOLUME] IN BLOOD BY AUTOMATED COUNT 0.68 10*3/u L 0.19 - 0.80 04/29 Specimen Type: BLOOD No comment entered. Ordering Provider: LUCIA STEWART Report Released Date/Time: Apr 29, 2024 01:29 PM Reporting Lab: [facility] [address] [facility] [address] Performing Lab: [facility] [address] [facility] [address] [facility] CBC NEUTROPHILS [#/VOLUME] IN BLOOD BY AUTOMATED COUNT 5.37 10*3/u L 2.10 - 8.00 04/29 Specimen Type: BLOOD No comment entered. Ordering Provider: LUCIA STEWART Report Released Date/Time: Apr 29, 2024 01:29 PM Reporting Lab: [facility] [address] [facility] [address] Performing Lab: [facility] [address] [facility] [address] [facility] CBC EOSINOPHILS [#/VOLUME] IN BLOOD BY AUTOMATED COUNT 0.20 10*3/u L 0.00 - 0.60 04/29 Specimen Type: BLOOD No comment entered. Ordering Provider: LUCIA STEWART Report Released Date/Time: Apr 29, 2024 01:29 PM Reporting Lab: [facility] [address] [facility] [address] Performing Lab: [address] [phone] [place] [address] CBC BASOPHILS [#/VOLUME] IN BLOOD BY AUTOMATED COUNT 0.03 10*3/u L 0.00 - 0.20 04/29 Specimen Type: BLOOD No comment entered. Ordering Provider: LUCIA STEWART Report Released Date/Time: Apr 29, 2024 01:29 PM Reporting Lab: [facility] [address] [facility] [address] Performing Lab: [address] [phone] [place] [address] [facility] ([facility] FOLLITROPIN [MOLES/VOLU ME] IN SERUM OR PLASMA 4.2 m[IU]/ mL 05/27 Specimen Type: SERUM Comment: Unable to flag abnormal result(s), please refer to reference range(s) below: Adult female reference ranges for FSH: Follicular Phase: 2.5-10.2 mIU/mL Mid-Cycle Peak: 3.1-17.7 mIU/mL Luteal Phase: 1.5-9.1 mIU/mL Postmenopaus al: 23.0-116.3 mIU/mL Test Performed by [facility], [employer] [facility], [address] [place] [address] Rio Bermudez M.D., Ph.D., Director of Laboratories , [place] [id number] Ordering Provider: LUCIA STEWART Report Released Date/Time: May 22, 2023 03:10 PM Reporting Lab: [facility] [address] [facility] [address] Performing Lab: [facility] [address] [place] [address] [facility] LUTEINIZIN G HORMONE LUTROPIN [UNITS/VOLU ME] IN SERUM OR PLASMA 7.4 m[IU]/ mL 05/27 Specimen Type: SERUM Comment: Unable to flag abnormal result(s), please refer to reference range(s) below: Adult Female reference ranges for LH: Follicular Phase: 1.9-12.5 mIU/mL Mid-Cycle Peak: 8.7-76.3 mIU/mL Luteal Phase: 0.5-16.9 mIU/mL Postmenopaus al: 10.0-54.7 mIU/mL Test Performed by [facility], [employer] [address] [facility], [address] [place] [address] Rio Bermudez M.D., Ph.D., Director of Laboratories , [facility] [id number] Ordering Provider: LUCIA STEWART Report Released Date/Time: May 22, 2023 03:10 PM Reporting Lab: [facility] [address] [place] [phone] Performing Lab: [address] [facility] HGA1C HEMOGLOBIN A1C/HEMOGLO BIN.TOTAL IN BLOOD 6.0 4.0 - 6.0 05/18 Specimen Type: BLOOD No comment entered. Ordering Provider: LUCIA STEWART Report Released Date/Time: May 15, 2023 12:32 PM Reporting Lab: [facility] [address] [facility] [address] Performing Lab: [facility] [address] [place] [phone] [facility] VITAMIN D, 25-HYDROXY 25-HYDROXYV ITAMIN D3 [MASS/VOLUM E] IN SERUM OR PLASMA 54.7 ng/mL 30 - 96 05/18 Specimen Type: SERUM No comment entered. Ordering Provider: LUCIA STEWART Report Released Date/Time: May 15, 2023 12:32 PM Reporting Lab: [facility] [address] [place] [address] Performing Lab: [address] TSH W/ REFLEX FT4 (STL) THYROTROPIN [UNITS/VOLU ME] IN SERUM OR PLASMA 1.260 u[IU]/ mL 0.47 - 5 05/18 Specimen Type: PLASMA No comment entered. Ordering Provider: LUCIA STEWART Report Released Date/Time: May 15, 2023 12:32 PM Reporting Lab: [place] [phone] Performing Lab: [address] Vital Signs Combined list of inpatient and outpatient Vital Signs from Department of Defense and Veterans Affairs, ranging from 12 months to all on record, depending upon the facility. Vital Sign Value Date Comments Source Systolic Blood Pressure 122 mm[Hg] 10/29/19 22 14:39:53 One or More A Facilities [employer] SERVICE TECHNICIAN Diastolic Blood Pressure 83 mm[Hg] 022 14:39:53 One or More A Facilities RV SERVICE TECHNICIAN Systolic Blood Pressure 127 mm[Hg] 11/04/19 23 18:30:12 One or More A Facilities RV SERVICE TECHNICIAN Diastolic Blood Pressure 87 mm[Hg] 023 18:30:12 One or More A Facilities RV SERVICE TECHNICIAN Systolic Blood Pressure 118 mm[Hg] 04/29/19 23 19:09:02 One or More A Facilities RV SERVICE TECHNICIAN Diastolic Blood Pressure 70 mm[Hg] 023 19:09:02 One or More [facility] [employer]CHNICIAN Systolic Blood Pressure 144 mm[Hg] 07/12/19 21 15:12:18 One or More [facility] [employer]CHNICIAN Diastolic Blood Pressure 82 mm[Hg] 06/02/2 021 15:12:18 One or More [facility] [employer]CHNICIAN Systolic Blood Pressure 123 mm[Hg] 10/05/19 18:14:04 [facility] or More [facility] [employer]NICIAN Diastolic Blood Pressure 67 mm[Hg] 18:14:04 [facility] or More [facility] [employer]NIC[employer] Systolic Blood Pressure 117 mm[Hg] 02/22/19 15:50:23 [facility] or More [facility] [employer]CHNICIAN Diastolic Blood Pressure 72 mm[Hg] 15:50:23 [facility] or More [facility] [employer]NICIAN Systolic Blood Pressure 125 mm[Hg] 04/24/19 16:30:41 [facility] or More [facility] [employer]NIC[employer] Diastolic Blood Pressure 84 mm[Hg] 16:30:41 [facility] or More [facility] [employer]NICIAN Systolic Blood Pressure 100 mm[Hg] 10/12/19 19:00:00 [facility] or More [facility] [employer]NIC[employer] Diastolic Blood Pressure 67 mm[Hg] 19:00:00 [facility] or More [facility] [employer]CHNICIAN Systolic Blood Pressure 105 mm[Hg] 11/02/19 19:00:00 [facility] or More [facility] [employer]CHNICIAN Diastolic Blood Pressure 63 mm[Hg] 19:00:00 [facility] or More [facility] [employer]NICIAN Systolic Blood Pressure 107 mm[Hg] 09/28/19 19:54:01 [facility] or More [facility] [employer]NIC[employer] Diastolic Blood Pressure 74 mm[Hg] 19:54:01 One or More [facility] [employer] TECHNICIAN SYSTOLIC BLOOD PRESSURE 136 04/30/19 25 12:35:51 [facility] DIASTOLIC BLOOD PRESSURE 86 025 12:35:51 [facility] PULSE OXIMETRY 97 04/29/2024 12:35:[address] [facility] WEIGHT 241.2 04/29/2024 12:35:[address] [facility] BMI 36 kg/m2 04/29/2024 12:35:[address] [facility] PAIN 0 04/29/2024 12:35:[address] [facility] HEIGHT 69 04/29/2024 12:35:[address] [facility] TEMPERATURE 98.1 04/29/2024 12:35:[address] [facility] PULSE 96 04/29/2024 12:35:51 [facility] [facility] RESPIRATION 18 04/29/2024 12:35:51 [facility] SYSTOLIC BLOOD PRESSURE 128 04/12/19 14:08:19 [facility] DIASTOLIC BLOOD PRESSURE 85 025 14:08:19 [facility] PULSE OXIMETRY 97 04/11/2024 14:08:19 [facility] PAIN 0 04/11/2024 14:08:19 [facility] TEMPERATURE 97.5 04/11/2024 14:08:19 [facility] PULSE 106 04/11/2024 14:08:19 [facility] RESPIRATION 16 04/11/2024 14:08:19 [facility] SYSTOLIC BLOOD PRESSURE 138 12/01/19 13:54:42 [facility] DIASTOLIC BLOOD PRESSURE 94 024 13:54:42 [facility] PULSE OXIMETRY 96 12/01/2023 13:54:42 [facility] WEIGHT 227.4 12/01/2023 13:54:42 [facility] BMI 34 kg/m2 12/01/2023 13:54:42 [facility] PAIN 0 12/01/2023 [facility]54[facility] HEIGHT 69 12/01/2023 13:54:42 [facility] TEMPERATURE 98.3 12/01/2023 13:54:42 [facility] PULSE 91 12/01/2023 13:54:42 [facility] RESPIRATION 18 12/01/2023 13:54:42 [facility] SYSTOLIC BLOOD PRESSURE 115 05/22/19 24 14:05:28 [facility] DIASTOLIC BLOOD PRESSURE 80 024 14:05:28 [facility] PULSE OXIMETRY 96 05/22/2023 14:05:28 [facility] WEIGHT 228 05/22/2023 14:05:28 [facility] BMI 34 kg/m2 05/22/2023 14:05:28 [facility] PAIN 2 05/22/2023 14:05:28 [facility] HEIGHT 69 05/22/2023 14:05:28 [facility] TEMPERATURE 98.6 05/22/2023 14:05:28 [facility] PULSE 89 05/22/2023 14:05:28 [facility] RESPIRATION 18 05/22/2023 14:05:28 [facility] Encounters Combined list of: 1) Encounters from Department of Veterans Affairs facilities going backup to the last 18 months, not all [place] inpatient encounters are included; 2) Encounters from the Department of [facility] facilities going backup to 280 months. Location Location Details Encounter Type Encounter Number Reason For Visit Attending Provider ADM Date DC Date Status Disposition Source [facility] 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 [id number] Diagnos is: ICD-10- CM Z71.81 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 ANGIE Odom 11/04 [facility] 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 [id number] Diagnos is: ICD-10- CM Z71.81 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 ANGIE Odom 11/20 [facility] Outpatient Encounter [id number] 11/26 [facility] Outpatient Encounter [id number] DELMA PERSAUD 12/18 [facility] 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 [id number] Diagnos is: ICD-10- CM Z71.81 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 ANGIE Odom 12/23 [facility] Outpatient Encounter [id number] 12/29 [facility] Outpatient Encounter [id number] 12/30 [facility] 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 [id number] Diagnos is: ICD-10- CM Z71.81 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 ing LARA TABARESTHIA 01/15 [facility] Outpatient Encounter [id number] 01/19 [facility] Outpatient Encounter [id number] HO LOCKETT 01/26 [facility] Outpatient Encounter [id number] 01/29 [facility] Outpatient Encounter [id number] Diagnos is: ICD-10- CM N97.9 Female inferti lity, unspeci fied JAHAIRA STEWART 01/29 [facility] Outpatient Encounter [id number] ANTHONY BUSH 01/29 [facility] Outpatient Encounter [id number] 02/03 [facility] Out[facility] Encounter [id number] VEENAPAULAANTHONY 02/10 [facility] Outpatient Encounter [id number] HO LOCKETT 02/16 [facility] 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 [id number] Diagnos is: ICD-10- CM Z71.81 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 ing LARA TABARESTHIA 02/20 [facility] 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 [id number] Diagnos is: ICD-10- CM Z71.81 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 ing ROD NGUYENANGIE 02/25 [facility] Outpatient Encounter [id number] HO LOCKETT Paola 03/03 [facility] 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 [id number] Diagnos is: ICD-10- CM Z71.81 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 ing ROD NGUYENANGIE 03/10 [facility] 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 [id number] Diagnos is: ICD-10- CM Z71.81 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 ing ROD NGUYENANGIE 04/02 [facility] 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 [id number] Diagnos is: ICD-10- CM Z71.81 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 ANGIE Odom 04/29 [facility] Outpatient Encounter [id number] HO LOCKETT Pa[place] 05/13 [facility] Outpatient Encounter [id number] HO LOCKETT [place] 05/14 [facility] Outpatient Encounter [id number] 05/14 [facility] Outpatient Encounter [id number] EMILY SWARTZ 05/14 [facility] OFFICE O/P EST MOD 30 MIN [id number] Diagnos is: ICD-10- CM F32.A Depress ion, unspeci fied MAYNAMAN,CHR ISTINE M 05/21 [facility] 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 [id number] Diagnos is: ICD-10- CM Z71.81 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 ANGIE Odom 05/27 [facility] PSYTX W PT 30 MINUTES [id number] Diagnos is: ICD-10- CM F43.23 Adjustm ent disorde r with mixed anxiety and depress ed mood Kenisha ALMARAZ 05/31 [facility] OFFICE O/P EST MOD 30 MIN [id number] Diagnos is: ICD-10- CM F43.12 Post-tr aumatic stress disorde r, chronic O'KASSI, LEWIS PERRY 06/03 [facility] Outpatient Encounter [id number] 06/03 [facility] Outpatient Encounter [id number] CATHRYNHO Paola 06/15 [facility] Outpatient Encounter [id number] CATHRYNADRIENNEO DRE Paola 06/16 [facility] 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 [id number] Diagnos is: ICD-10- CM Z71.81 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 ANGIE Odom 06/21 [facility] PSYTX W PT 60 MINUTES [id number] Diagnos is: ICD-10- CM Z63.4 Disappe arance and of family member MARIE POZO 06/21 [facility] Outpatient Encounter [id number] CATHRYNHO DRE Guevara 07/06 [facility] Outpatient Encounter [id number] CATHRYNADRIENNEO DRE Guevara 07/07 [facility] Outpatient Encounter [id number] CATHRYNADRIENNEDusty Guevara 07/09 [facility] Outpatient Encounter [id number] SRINI ORDONEZ 07/22 [facility] OFFICE O/P EST MOD 30 MIN [id number] Diagnos is: ICD-10- CM F43.12 Post-tr aumatic stress disorde r, chronic OBrysonKASSILEWIS VICKY 07/22 [facility] 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 [id number] Diagnos is: ICD-10- CM Z71.81 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 ANGIE Odom 07/26 [facility] PSYTX W/PT 50 MIN [id number] Diagnos is: ICD-10- CM Z63.0 Problem s in relatio nship with spouse or partner NATE CRUZ 08/06 [facility] 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 [id number] Diagnos is: ICD-10- CM Z71.81 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 ANGIE Odom 08/10 [facility] PSYTX W/PT 50 MIN [id number] Diagnos is: ICD-10- CM Z63.0 Problem s in relatio nship with spouse or partner NATE CRUZ 09/08 [facility] PSYTX W/PT 50 MIN [id number] [id number] Diagnos is: ICD-10- CM Z63.0 Problem s in relatio nship with spouse or partner NATE CRUZ 09/15 [facility] Out[facility] Encounter [id number] 09/17 [facility] 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 [id number] Diagnos is: ICD-10- CM Z71.81 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 ing ANGIE TABARES 09/20 [facility] PSYTX W/PT 50 MIN [id number] Diagnos is: ICD-10- CM Z63.0 Problem s in relatio nship with spouse or partner NATE CRUZChelsea Tran 09/24 [facility] PSYTX W/PT 50 MIN [id number] Diagnos is: ICD-10- CM Z63.0 Problem s in relatio nship with spouse or partner NATE CRUZ JANAE Tran 10/08 [facility] 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 [id number] Diagnos is: ICD-10- CM Z71.81 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 ing ANGIE TABARES 10/18 [facility] PSYTX W/PT 50 MIN [id number] [id number] Diagnos is: ICD-10- CM Z63.0 Problem s in relatio nship with spouse or partner NATE CRUZChelsea Tran 10/29 [facility] OFFICE O/P EST MOD 30 MIN [id number] Diagnos is: ICD-10- CM F43.12 Post-tr aumatic stress disorde r, chronic LEWIS BAUTISTA 11/02 [facility] Outpatient Encounter [id number] Indu TONY 11/02 [facility] 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 [id number] Diagnos is: ICD-10- CM Z71.81 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 ANGIE Odom 11/08 [facility] Outpatient Encounter [id number] 11/12 [facility] Outpatient Encounter [id number] 11/12 [facility] Outpatient Encounter [id number] KRISTIE HAWLEY L 11/14 [facility] Outpatient Encounter [id number] [id number] EMILY SWARTZ A 11/25 [facility] PSYTX W/PT 50 MIN [id number] [id number] Diagnos is: ICD-10- CM Z63.0 Problem s in relatio nship with spouse or partner NATE CRUZ A 11/26 [facility] OFFICE O/P EST MOD 30 MIN [id number] [id number] Diagnos is: ICD-10- CM R49.0 Dysphon JAHAIRA Dominguez 11/30 [facility] Outpatient Encounter [id number] 12/01 [facility] PSYTX W/PT 50 MIN [id number] [id number] Diagnos is: ICD-10- CM Z63.0 Problem s in relatio nship with spouse or partner NATE CRUZ 12/10 [facility] 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 [id number] Diagnos is: ICD-10- CM Z71.81 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 ANGIE Odom 12/16 [facility] Outpatient Encounter [id number] 12/23 [facility] OFFICE O/P EST MOD 30 MIN [id number] Diagnos is: ICD-10- CM F43.12 Post-tr aumatic stress disorde r, chronic LEWIS BAUTISTA 01/04 [facility] Outpatient Encounter [id number] 01/05 [facility] Outpatient Encounter [id number] 01/10 [facility] Outpatient Encounter [id number] YIFAN JOHN 02/17 [facility] Outpatient Encounter [id number] HO LOCKETT 02/24 [facility] Outpatient Encounter [id number] HO LOCKETT 02/25 [facility] PSYTX W/PT 50 MIN [id number] [id number] Diagnos is: ICD-10- CM Z63.0 Problem s in relatio nship with spouse or partner NATE CRUZ A 03/02 [facility] Outpatient Encounter [id number] 03/10 [facility] OFFICE O/P EST MOD 30 MIN [id number] Diagnos is: ICD-10- CM F43.12 Post-tr aumatic stress disorde rangie SRIJANA SHRESTHA 04/08 [facility] Outpatient Encounter [id number] DELMA PERSAUD 04/11 [facility] LARYNGOSCO PY TELESCOPIC [id number] Diagnos is: ICD-10- CM R49.8 Other voice and resonan ce disorde JULIA Motley 04/11 [facility] OFFICE O/P NEW LOW 30 MIN [id number] [id number] Diagnos is: ICD-10- CM R49.0 Dysphon BINH Holland 04/11 [facility] Outpatient Encounter [id number] YAEL ARZATE 04/12 [facility] Outpatient Encounter [id number] HO LOCKETT Pa[place] 04/13 [facility] Outpatient Encounter [id number] HO LOCKETT J 04/15 [facility] Outpatient Encounter [id number] HO LOCKETT [place] 04[facility] Outpatient Encounter [id number] 04/19 [facility] Outpatient Encounter [id number] HO LOCKETT Pa[place] 04/20 [facility] N [facility] Outpatient Encounter [id number] [id number] MARYROSAURA Leos 04/20 [facility] Outpatient Encounter [id number] [id number] HO LOCKETT [place] 04/20 [facility] Outpatient Encounter [id number] 04/22 [facility] XTRNL ECG REC UP TO 48 HRS [id number] [id number] Diagnos is: ICD-10- CM R00.0 Tachyca rdia, unspeci fied PEEWEE NEWTON 04/26 [facility] OFFICE O/P EST MOD 30 MIN [id number] [id number] Diagnos is: ICD-10- CM R00.0 Tachyca rdia, unspeci fied JAHAIRA STEWART 04/29 [facility] Outpatient Encounter [id number] 05/03 [facility] Procedures Combined list of: 1) Procedures from Department of Veterans Affairs facilities going back up to thelast 18 months, not all VA non-surgical procedures are included; 2) All procedures from the Department of Defense facilities. Procedure Procedure Type Code Date Perfomer Comments Sourc e Delivery of Products of Conception, External Approach Delivery of Products of Conception, External Approach [id number] Ambulatory Pharmacy LARYNGOSCOPY, FLEXIBLE; DIAGNOSTIC Laryngoscopy, flexible fiberoptic; diagnostic 27371 7 Ambulatory Pharmacy COLPOSCOPY OF THE CERVIX INCLUDING UPPER/ADJACENT VAGINA; WITH BIOPSY(S) OF THE CERVIX AND ENDOCERVICAL CURETTAGE Colposcopy of the cervix including upper/adjacent vagina; with biopsy(s) of the cervix and endocervical curettage 67468 3 Ambulatory Pharmacy INSERTION OF INTRAUTERINE DEVICE (IUD) Insertion of intrauterine device (IUD) 53005 3 Ambulatory Pharmacy REMOVAL OF INTRAUTERINE DEVICE (IUD) Removal of intrauterine device (IUD) 40414 2 Ambulatory Pharmacy NASAL/SINUS ENDOSCOPY, SURGICAL, WITH MAXILLARY ANTROSTOMY; WITH REMOVAL OF TISSUE FROM MAXILLARY SINUS Nasal/sinus endoscopy, surgical, with maxillary antrostomy; with removal of tissue from maxillary sinus 81280 0 Ambulatory Pharmacy SUBMUCOUS RESECTION INFERIOR TURBINATE, PARTIAL OR COMPLETE, ANY METHOD Submucous resection turbinate, partial or complete, any method 51411 0 Ambulatory Pharmacy SEPTOPLASTY OR SUBMUCOUS RESECTION, WITH OR WITHOUT CARTILAGE SCORING, CONTOURING OR REPLACEMENT WITH GRAFT Septoplasty or submucous resection, with or without cartilage scoring, contouring or replacement with graft 60221 0 Ambulatory Pharmacy INSERTION OF INTRAUTERINE DEVICE (IUD) Insertion of intrauterine device (IUD) 89109 0 Ambulatory Pharmacy Social History Combined list of available smoking, tobacco, and other social history from Department of 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 Social History Type Response Date Comment Sour e Tobacco smoking status [facility] NEVER USED OTHER TYPE 04/29/20[facility] History of tobacco use VA-TOBACCO USE FORMER CIGARETTES 04/29/2024 [facility] History of tobacco use VA-TOBACCO QUIT 1 5 YRS OR MORE 05/22/2023 [facility] Sex Representation Female 03/02/2023 Unknow n Organization History of tobacco use VA-TOBACCO FORMER USER 04/21/2022 [facility] History of tobacco use [facility] History of tobacco use VA-TOBACCO FORMER USER 02/23/2020 [facility] History of tobacco use VA-TOBACCO NEVER USED 09/16/2018 [facility] History of tobacco use VA-TOBACCO FORMER USER 10/14/2017 [facility] History of tobacco use QUIT TOBACCO >7 YEARS AGO 03/13/2017 [facility] History of tobacco use LIFETIME NON-USER OF TOBACCO 03/06/2016 [facility] History of tobacco use PREVIOUS SMOKER 11/06/2015 in her 2 0's [facility] History of tobacco use QUIT TOBACCO >12 MO and <7 YRS AGO 03/28/2015 quit in 2009 [facility] History of tobacco use QUIT TOBACCO >12 MO and <7 YRS AGO 04/18/2014 [facility] History of tobacco use TOBACCO OFFERRED PT MEDS/DECLINED 04/18/2014 [facility] History of tobacco use TOBACCO OFFERRED PT MEDS (PROVIDER) 12/13/2012 [facility] History of tobacco use QUIT TOBACCO >12 MO and <7 YRS AGO 06/01/2012 [facility] History of tobacco use TOBACCO OFFERRED PT MEDS/DECLINED 12/16/2011 [facility] History of tobacco use QUIT TOBACCO >7 YEARS AGO 02/18/2011 [facility] History of tobacco use QUIT TOBACCO >12 MO and <7 YRS AGO 01/24/2011 [facility] History of tobacco use TOBACCO OFFERRED PT MEDS (PROVIDER) 11/19/2010 [facility] History of tobacco use QUIT TOBACCO >12 MO and <7 YRS AGO 02/12/2010 [facility] History of tobacco use TOBACCO OFFERRED PT MEDS (PROVIDER) 02/21/2009 [facility] History of tobacco use QUIT TOBACCO >12 MO and <7 YRS AGO 02/13/2009 [facility] History of tobacco use QUIT TOBACCO IN THE LAST 12 MONTHS 04/18/2008 [facility] Sexual Orientation Ambula tory Pharmacy Gender identity Ambulator y Pharmacy Assessment and Plan Combined list of future care activities from Department of [facility] and [facility] facilities (e.g., assessment and plan notes, appointments, orders, and referrals). Additional future care activities may be listed in the Plan of Care section. Result Assessment and Plan Date Source Assessment and Plan No data available for this section 05/04/2024 Ambulatory Pharmacy Plan of Care List of future care activities from [facility] facilities. Additional future care activities may be listed in the Assessment and Plan section. Date/Time Care Activity Care Activity Detail Facili ty 05/04/2024 AMBULATORY - MEDICINE AMBULATORY - MEDICI [facility] Advance Directives List of completed, amended, or rescinded Advance Directives on record at Department [facility] facilities. An actual copy of the Directive is not included. Date Advance Directive Provider Source 04/06/2015 ADVANCE DIRECTIVE DISCUSSION KEREN SKY [facility] Functional Status Combined list of recent functional and cognitive assessments recorded at Department of Defense and Veterans Affairs (VA).VA Functional Mclean Measurement (FIM) Scale: 1 = Total Assistance (Subject = 0% +), 2 = Maximal Assistance (Subject = 25% +), 3 = Moderate Assistance (Subject = 50% +), 4 = Minimal Assistance (Subject = 75% +), 5 = Supervision, 6 = Modified Mclean (Device), 7 = Complete Mclean (Timely, Safely). Assessment Date/Time Source Assessment Type Assessment Skill Assessment Score Assessment Details No data available for this section
--- OUTSIDE RECORDS SUMMARY | 2024-05-04 13:31 | XMS_ITS | Clinical Summary ---
Author Organization [facility] Address [address] [facility] [address] [place] [address] Phone Care Team Providers Care Port Warden Name Role Phone Unavailable Primary Care Provider Unavailabl e Allergies Active Allergy Reactions Criticality Noted Date Comments Flu Vaccine 2010-(3 Yr+)(Pf) Syncope Medium 04/09 Latex Hives High 04/09/2024 Medications prochlorperazine maleate (COMPAZINE) 10 mg tablet Take 1 Tablet (10 mg) by mouth every 6 hours as needed for Other (See Comment) (Headache). 6 Tablet 04/09/2024 Active Encounters Date Type Department Care Team Description 04/27/2024 External Device Data [facility] ABSTRACTION Provider, Abstract 04/19/2024 External Device Data [facility] ABSTRACTION Provider, Abstract 04/19/2024 External Device Data [facility]STRACTION Provider, Abstract 04/16/2024 External Device Data [facility]STRACTION Provider, Abstract 04/15/2024 External Device Data [facility] ABSTRACTION Provider, Abstract 04/13/2024 External Device Data [facility] ABSTRACTION Provider, Abstract 04/12/2024 External Device Data [facility] ABSTRACTION Provider, Abstract 04/12/2024 External Device Data [facility] ABSTRACTION Provider, Abstract 04/09/2024 3:02 PM GARBAGE WORKER - 04/09/2024 8:47 PM GARBAGE WORKER Emergency [facility] [address] [place] [address] Surinder Rivera MD Palpitations (Primary Dx); Acute nonintractable headache, unspecified headache type Discharge Disposition: Home or Self Care 04/09/2024 Travel from Last 3 Months Social History Tobacco Use Types Packs/Day Years Used Date Smoking Tobacco: Former Cigarettes Tobacco Cessation:Counseling Given: Not Answered Feeling Safe Answer Date Recorded Are you in a relationship wi th someone who hurts you emotionally and/or physically? No 04/09/2024 Comments Unknown Sex and Gender Information Value Date Recorded Sex Assigned at Not on file Legal Sex Female 2:56 PM GARBAGE WORKER Gender Identity Not on file Sexual Orientation Not on file Last Filed Vital Signs Vital Sign Reading Time Taken Comments Blood Pressure 110/77 04/09/2024 8:42 PM GARBAGE WORKER Pulse 95 04/09/2024 8:36 PM GARBAGE WORKER Temperature 37.1 C (98.7 F) 04/09/2024 3:00 PM GARBAGE WORKER Respiratory Rate 12 04/09/2024 8:34 PM GARBAGE WORKER Oxygen Saturation 98% 04/09/2024 8:36 PM GARBAGE WORKER Inhaled Oxygen Concentration - - Weight 107 kg (236 lb) 04/09/2024 3:00 PM GARBAGE WORKER Height 175.3 cm (5' 9 ) 04/09/2024 3:00 PM GARBAGE WORKER Body Mass Index 34.85 04/09/2024 3:00 PM GARBAGE WORKER Plan of Treatment Health Maintenance Due Date Last Done Comments Pre-Diabetes and Diabetes Screening 1980 PAP SMEAR 07/03/2003 HEPATITIS B VACCINES (2 of 3 - 19+ 3-dose series) 10/20/2007 09/22/2007, 03/26/2007, 09/08/2005, Additional history exists CERVICAL CANCER SCREENING 2012 HPV/Cotest 2012 PAP SMEAR 2012 BREAST CANCER SCREENING 2022 INFLUENZA VACCINE (#1) 2023 6, 11/23/2012, 11/22/2011, Additional history exists DTAP/TDAP/TD VACCINES (5 - Td or Tdap) 10/29/2031 10/28/2021, 11/23/2012, 02/10/2008, Additional history exists HPV VACCINES Aged Out No longer eligi ble based on patient's age to complete this topic Procedures Procedure Name Priority Date/Time Associated Diagnosis Comments TROPONIN 2 HR, 5TH GEN Timed Study 04/09/2024 6:[address] HEAD WO CONTRAST Stat 04/09/2024 4 :52 PM GARBAGE WORKER D-DIMER Stat 04/09/2024 4:19 PM GARBAGE WORKER HCG QUALITATIVE, SERUM Stat 04/09/2024 4:19 PM GARBAGE WORKER MAGNESIUM LEVEL Stat 04/09/2024 4:19 PM GARBAGE WORKER TROPONIN BASELINE, 5TH GEN Stat 04/09/2024 4:19 PM GARBAGE WORKER COMPREHENSIVE METABOLIC PANEL Stat 04/09/2024 4:19 PM GARBAGE WORKER CBC WITH DIFFERENTIAL Stat 04/09/2024 4:19 PM GARBAGE WORKER XR CHEST PA AND LATERAL 2 VW Stat 04/09/2024 3:48 PM GARBAGE WORKER EKG 12-LEAD Stat 04/09/2024 3:00 PM GARBAGE WORKER from Last 3 Months Results * TROPONIN 2 HR, 5TH GEN (04/09/2024 6:03 PM GARBAGE WORKER) TROPONIN T, 2 HR 5TH GEN <6 <=10 ng/L 04/09/2024 6:25 PM GARBAGE WORKER [facility] Blood Collection / Unknown 04/09/2024 6:03 PM GARBAGE WORKER 04/09/2024 6:13 PM GARBAGE WORKER Narrative [facility] - 04/09/2024 6:25 PM GARBAGE WORKER Troponin Undetectable Delay in collection of timed specimen beyond recommended collection interval. Results must be interpreted in clinical context. Unable to calculate delta. us Surinder Rivera MD CHEMISTRY ORDERABLES Final Resu lt [facility] [place] CLIA # [id number] [address] [place] [id number] * CT HEAD WO CONTRAST (04/09/2024 4:52 PM GARBAGE WORKER) Anatomical Region Laterality Modality Head Computed Tomogra phy 04/09/2024 4:52 PM GARBAGE WORKER Impressions 04/09/2024 5:03 PM GARBAGE WORKER IMPRESSION: Normal CT head The examination was performed with the adjustment of mA according to the patient size and/or the use of Iterative Reconstruction Technique. DICTATION LOCATION: Location [address] [place] [address] Narrative 04/09/2024 5:03 PM GARBAGE WORKER EXAM; CT HEAD NONCONTRAST DATE: 04/09/2024 4:52 PM HISTORY: ,Headache, chronic, new features or increased frequency TECHNIQUE: 5 mm axial images through the head without contrast. FINDINGS: There is no acute intracranial hemorrhage. There is no mass, mass effect or midline shift. There is no extra-axial fluid collection or mass. There is no evidence of infarct. The ventricles and basilar cisterns appear normal. The bony calvarium and paranasal sinuses are normally aerated. Procedure Note Reginald Ernandez MD - 04/09/2024 EXAM; CT HEAD NONCONTRAST DATE: 04/09/2024 4:52 PM HISTORY: ,Headache, chronic, new features or increased frequency TECHNIQUE: 5 mm axial images through the head without contrast. FINDINGS: There is no acute intracranial hemorrhage. There is no mass, mass effect or midline shift. There is no extra-axial fluid collection or mass. There is no evidence of infarct. The ventricles and basilar cisterns appear normal. The bony calvarium and paranasal sinuses are normally aerated. IMPRESSION: Normal CT head The examination was performed with the adjustment of mA according to the patient size and/or the use of Iterative Reconstruction Technique. DICTATION LOCATION: Location - [facility] Surinder Rivera MD CT ORDERABLES Final Result * TROPONIN BASELINE, 5TH GEN (04/09/2024 4:19 PM GARBAGE WORKER) TROPONIN T, BASELINE 5TH GEN <6 <=10 ng/L 04/09/2024 4:50 PM GARBAGE WORKER [facility] Blood Collection / Unknown 04/09/2024 4:19 PM GARBAGE WORKER 04/09/2024 4:37 PM GARBAGE WORKER Narrative [facility] - 04/09/2024 4:50 PM GARBAGE WORKER Troponin Undetectable Surinder Rivera MD CHEMISTRY ORDERABLES Final Resu lt [facility] CLIA # [id number] [facility] [address] [place] [address] * HCG QUALITATIVE, BLOOD (04/09/2024 4:19 PM GARBAGE WORKER) [facility] HCG QUAL, BLOOD Negative Negative 04/09/2024 4:48 PM [facility] Blood Collection / Unknown 04/09/2024 4:19 PM GARBAGE WORKER 04/09/2024 4:37 PM GARBAGE WORKER [facility] - 04/09/2024 4:48 PM GARBAGE WORKER hCG sensitive to as little as 10 mIU/mL for serum. Surinder Rivera MD CHEMISTRY ORDERABLES Final Resu lt Performing Organization Address [facility]/ZIP Co de Phone Number [facility] CLIA # [id number] [address] [address] * (ABNORMAL) CBC WITH DIFFERENTIAL (04/09/2024 4:19 PM GARBAGE WORKER) [facility] WBC 6.8 4.0 - 11.0 K/uL 04/09/2024 4:28 PM [facility] RBC 4.86 4.20 - 5.40 M/uL 04/09/2024 4:28 PM [facility] HEMOGLOBIN 12.3 11.9 - 15.1 g/dL 04/09/2024 4:28 PM [facility] HEMATOCRIT 38.4 38.0 - 47.0 % 04/09/2024 4:28 PM [facility] MCV 79.0(L) 80.0 - 98.0 fL 04/09/2024 4:28 PM [facility] MCH 25.3(L) 26.0 - 34.0 pg 04/09/2024 4:28 PM [facility] MCHC 32.0 31.0 - 37.0 g/dL 04/09/2024 4:28 PM GARBAGE WORKER [facility] [place] RDW 14.8(H) 11.5 - 14.5 % 04/09/2024 4:28 PM GARBAGE WORKER [facility] [employer] [facility] [place] RDW-STDEV 42.6 34.0 - 54.0 fL 04/09/2024 4:28 PM GARBAGE WORKER [facility] [employer] [place] PLATELETS 314 150 - 400 K/uL 04/09/2024 4:28 PM GARBAGE WORKER [facility] [employer] [facility] [place] MPV 8.9 8.5 - 12.5 fL 04/09/2024 4:28 PM GARBAGE WORKER [facility] [employer] [place] NEUTROPHILS 58 50 - 70 % 04/09/2024 4:28 PM GARBAGE WORKER [facility] [employer] [facility] [place] LYMPHOCYTES 32 20 - 40 % 04/09/2024 4:28 PM GARBAGE WORKER [facility] [employer] [facility] [place] MONOCYTES 8 2 - 8 % 04/09/2024 4:28 PM GARBAGE WORKER [facility] [employer] [facility] [place] EOSINOPHILS 2 1 - 3 % 04/09/2024 4:28 PM GARBAGE WORKER [facility] [employer] [facility] [employer] [facility] [place] BASOPHILS 0 0 - 1 % 04/09/2024 4:28 PM GARBAGE WORKER [facility] [employer] [facility] [place] IMMATURE GRANULOCYTES 0 0 - 2 % 04/09/2024 4:28 PM GARBAGE WORKER [facility] [employer] [facility] [place] NEUTROPHIL ABSOLUTE 3.90 1.80 - 7.70 K/uL 04/09/2024 4:28 PM GARBAGE WORKER [facility] [employer] [facility] [place] LYMPHOCYTE ABSOLUTE 2.13 1.00 - 3.30 K/uL 04/09/2024 4:28 PM GARBAGE WORKER [facility] [employer] [facility] [place] MONOCYTE ABSOLUTE 0.52 0.00 - 0.80 K/uL 04/09/2024 4:28 PM GARBAGE WORKER [facility] [employer] [place] EOSINOPHIL ABSOLUTE 0.16 0.00 - 0.45 K/uL 04/09/2024 4:28 PM GARBAGE WORKER [facility] [employer] [place] BASOPHILS ABSOLUTE 0.03 0.00 - 0.20 K/uL 04/09/2024 4:28 PM GARBAGE WORKER [facility] [employer] [facility] [place] IMMATURE GRANULOCYTES ABSOLUTE 0.02 0.00 - 0.31 K/uL 04/09/2024 4:28 PM GARBAGE WORKER [facility] [employer] [facility] [place] Blood Collection / Unknown 04/09/2024 4:19 PM GARBAGE WORKER 04/09/2024 4:26 PM GARBAGE WORKER Surinder Rivera MD HEMATOLOGY ORDERABLES Final Res ult Performing Organization Address City/[facility]/ZIP Co de Phone Number [facility] LABORATORY [facility] CLIA # [id number] [address] [place] [address] * D-DIMER (04/09/2024 4:19 PM GARBAGE WORKER) D-DIMER QUANT <0.27 <=0.50 ug/mL FEU 04/09/2024 4:41 PM GARBAGE WORKER [facility] LABORATORY [facility] Blood Collection / Unknown 04/09/2024 4:19 PM GARBAGE WORKER 04/09/2024 4:30 PM GARBAGE WORKER Narrative [facility] [place] - 04/09/2024 4:41 PM GARBAGE WORKER D-Dimer assay cutoff value for exclusion of DVT and/or PE is <0.50 ug/mL FEU. Surinder Rivera MD HEMATOLOGY ORDERABLES Final Res ult Performing Organization Address [facility] Co de Phone Number [facility] CLIA # [id number] [address] [place] [address] * MAGNESIUM LEVEL (04/09/2024 4:19 PM GARBAGE WORKER) Pathologist [facility] MAGNESIUM 2.1 1.6 - 2.6 mg/dL 04/09/2024 4:50 PM GARBAGE WORKER [facility] Blood Collection / Unknown 04/09/2024 4:19 PM GARBAGE WORKER 04/09/2024 4:38 PM GARBAGE WORKER Surinder Rivera MD CHEMISTRY ORDERABLES Final Resu lt Performing Organization Address [facility]/ZIP Co de Phone Number [facility] LABORATORY [facility] CLIA # [id number] [address] [place] [address] * (ABNORMAL) COMPREHENSIVE METABOLIC PANEL (04/09/2024 4:19 PM GARBAGE WORKER) SODIUM 140 136 - 145 mmol/L 04/09/2024 4:50 PM [facility] [facility] [place] POTASSIUM 4.1 3.5 - 5.1 mmol/L 04/09/2024 4:50 PM [facility] [place] CHLORIDE 104 98 - 107 mmol/L 04/09/2024 4:50 PM [facility] [place] CO2 27 22 - 29 mmol/L 04/09/2024 4:50 PM [facility] [place] CALCIUM 9.1 8.6 - 10.0 mg/dL 04/09/2024 4:50 PM [facility] [place] BUN 16 6 - 20 mg/dL 04/09/2024 4:50 PM [facility] [place] CREATININE 1.39(H) 0.51 - 0.95 mg/dL 04/09/2024 4:50 PM [facility] [place] GLUCOSE 107(H) 74 - 99 mg/dL 04/09/2024 4:50 PM [facility] [place] TOTAL PROTEIN 6.8 6.6 - 8.7 g/dL 04/09/2024 4:50 PM [facility] [place] ALBUMIN 4.3 4.0 - 5.0 g/dL 04/09/2024 4:50 PM [facility] [place] BILIRUBIN TOTAL <0.2 <=1.2 mg/dL 04/09/2024 4:50 PM [facility] [place] ALKALINE PHOSPHATASE 117(H) 35 - 104 U/L 04/09/2024 4:50 PM [facility] [place] AST 11 <40 U/L 04/09/2024 4:50 PM [facility] [facility] [place] ALT 12 <=33 U/L 04/09/2024 4:50 PM [facility] [place] GFR 49(L) >=60 mL/min/1.7 3 sq meter 04/09/2024 4:50 PM [facility] [place] Comment:eGFR calculated with 2020 CKD-EPI equation. Vegetarian diet, extremely high or low muscle mass, and may affect results. Cystatin C with Glomerular Filtration Rate is a suitable alternative for these patients. ANION GAP 9 5 - 15 mmol/L 04/09/2024 4:50 PM GARBAGE WORKER [facility] LABORATORY [facility] Blood Collection / Unknown 04/09/2024 4:19 PM GARBAGE WORKER 04/09/2024 4:38 PM GARBAGE WORKER Surinder Rivera MD CHEMISTRY ORDERABLES Final Resu lt [facility] CLIA # [id number] [address] [place] [address] * XR CHEST PA AND LATERAL 2 VW (04/09/2024 3:48 PM GARBAGE WORKER) Anatomical Region Laterality Modality Chest Computed Radiogr aphy 04/09/2024 3:4 8 PM GARBAGE WORKER Impressions 04/09/2024 3:52 PM GARBAGE WORKER IMPRESSION: Normal chest x-ray. DICTATION LOCATION: Location 1 - [facility] Narrative 04/09/2024 3:52 PM GARBAGE WORKER EXAM: PA AND LATERAL CHEST DATE: 04/09/2024 3:48 PM HISTORY: Palpitations. See Reason for Exam FINDINGS: The heart size and mediastinal width are normal. The lungs are clear. There is no pleural effusion or pneumothorax. Procedure Note Reginald Ernandez MD - 04/09/2024 EXAM: PA AND LATERAL CHEST DATE: 04/09/2024 3:48 PM HISTORY: Palpitations. See Reason for Exam FINDINGS: The heart size and mediastinal width are normal. The lungs are clear. There is no pleural effusion or pneumothorax. IMPRESSION: Normal chest x-ray. DICTATION LOCATION: Location 1 - [facility] Surinder Rivera MD DIAGNOSTIC IMAGING ORDERABLES F inal Result * EKG 12-LEAD (04/09/2024 3:00 PM GARBAGE WORKER) 04/09/2024 3:00 PM GARBAGE WORKER Narrative INTERFACE SYSTEM - 04/10/2024 9:00 AM GARBAGE WORKER [facility] [address], [place] [address] Test Date: 2024-04-09 Pat Name: ALIX GRIMES Department: 5003 Room: Gender: Female Brand Sales Consultant: : 1980 Requested By: Order Number: [id number] Reading MD: Eladio Carter Measurements Intervals [place] Rate: 93 P: 59 MI: 169 QRS: 95 QRSD: 76 T: 30 QT: 334 QTc: 417 Interpretive Statements SINUS RHYTHM BORDERLINE RIGHT AXIS DEVIATION [QRS AXIS > 90] LOW QRS VOLTAGE IN PRECORDIAL LEADS [QRS DEFLECTION < 1.0 mV IN CHEST LEADS] NONSPECIFIC T-WAVE ABNORMALITY Electronically Signed On 04-10-2024 9:00:59 GARBAGE WORKER by Eladio Carter Procedure Note Eladio Carter MD - 04/10/2024 [facility] [address], [place] [address] Test Date: 2024-04-09 Pat Name: ALIX GRIMES Department: 5003 Room: Gender: Female Brand Sales Consultant: : 1980 Requested By: Order Number: [id number] Reading MD: Eladio Carter Measurements Intervals [place] Rate: 93 P: 59 MI: 169 QRS: 95 QRSD: 76 T: 30 QT: 334 QTc: 417 Interpretive Statements SINUS RHYTHM BORDERLINE RIGHT AXIS DEVIATION [QRS AXIS > 90] LOW QRS VOLTAGE IN PRECORDIAL LEADS [QRS DEFLECTION < 1.0 mV IN CHESTLEADS] NONSPECIFIC T-WAVE ABNORMALITY Electronically Signed On 04-10-2024 9:00:59 GARBAGE WORKER by Eladio Carter us Surinder Rivera MD ECG ORDERABLES Final Result INTERFACE SYSTEM Refer to clinic/hospital department from Last [address] [place] [address] [place] [address] [employer]
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
--- OUTSIDE RECORDS SUMMARY | 2024-05-04 13:31 | XMS_ITS | Encounter Summary ---
Author Name [facility] [place] Organization [place] Address [address] [place] [address] Care Team Providers Care Graduate Engineer Name Role Phone DAMION STEWART Primary Care Provider Unavailab le Selected Encounter This section includes the information on record at [place] for the Encounter. Date/Time Encounter Type Encounter Description Reason Provider Source Apr 11, 2024 08:57 AM Outpatient Encounter ADMIN PAT ACTIVTIES (MASNONCT) NYASIA PERSAUD Encounter Template Text not used by [place] Plan of Treatment: Future Appointments (+ 6 months) and Future Tests (+/- 45 days) The Plan of Treatment section includes future care activities for the patient from all [place] treatmentfacilities. This section includes future appointments and future orders which are active, pending or scheduled. Future Appointments This section includes appointments that were scheduled to occur 6 months from the date of the Encounter, up to a maximum of 20 appointments. The data comes from all [place] treatment facilities. Appointment Date/Time Appointment Type Appointme nt Facility Name Apr 26, 2024 03:00 PM AMBULATORY - MEDICINE [facility] Apr 29, 2024 12:30 PM AMBULATORY - MEDICINE [facility] May 04, 2024 04:15 PM AMBULATORY - MEDICINE [facility] May 24, 2024 02:00 PM AMBULATORY - MEDICINE [facility] May 24, 2024 03:00 PM AMBULATORY - SURGERY [facility] Jul 12, 2024 02:30 PM AMBULATORY - PSYCHIATRY [facility] Aug 04, 2024 11:30 AM AMBULATORY - SURGERY [facility] Active, Pending, and Scheduled Orders This section includes a listing of several types of active, pending, and scheduled orders, including clinic medications orders, diagnostic test orders, procedure orders and consult orders; where the start date of the order is 45 days before the date of the Encounter or 45 days after the date of theEncounter. The data comes from all [place] treatment facilities. Test Date/Time Test Type Test Details Facility Name Apr 11, 2024 04:42 PM Consult Order ALLERGY OU TPT STL [facility] [employer] [facility] Apr 19, 2024 04:58 PM Procedure Order HOLTER MON ITOR STL CP HOLTER MONITOR STL Proc [facility] Apr 29, 2024 12:00 AM Laboratory - Chemi stry Order HEP C Ab HCV Ab ([facility]) GOLD/RED SST SERUM SP [facility] Apr 29, 2024 01:45 PM Consult Order GYNECOLOGY SERVICES OUTPT [facility] [employer] [facility] Apr 29, 2024 01:45 PM Consult Order NEUROLOGY OUTPATIENT [facility] [employer] [employer] [facility] Apr 29, 2024 01:45 PM Consult Order COMMUNITY CARE-STL SLEEP STUDY [facility] [employer] [facility] Lab Results: +/- 30 days of the [...] Range Comment Apr 29, 2024 01:[address] [facility] TSH W/ REFLEX FT4 ([facility]) Specimen Type: PLASMA No comment entered. Ordering Provider: LUCIA STEWART Report Released Date/Time: Apr 29, 2024 01:29 PM Reporting Lab: [facility] [address] [place] [phone] Performing Lab: [facility] [address] [place] [phone] TSH 1.940 u[IU]/mL 0.47-5 Apr 29, 2024 01:[address] [facility] HGA1C Specimen Type: BLOOD No comment entered. Ordering Provider: LUCIA STEWART Report Released Date/Time: Apr 29, 2024 01:29 PM Reporting Lab: [facility] [address] [place] [phone] Performing Lab: [facility] [address] [place] [phone] HGA1C 6.2 H 4.0-6.0 Apr 29, 2024 01:[address] [facility] LIPID PANEL (STL) Specimen Type: PLASMA Comment: No hemolysis noted. Ordering Provider: LUCIA STEWART Report Released Date/Time: Apr 29, 2024 01:29 PM Reporting Lab: [facility] [address] [place] [phone] Performing Lab: [address] [phone] CHOLESTEROL 193 mg/dL 0-200 TRIGLYCERIDE 205 mg/dL H 0-150 CALCULATED LDL 112 mg/dL HDL(New) 40 mg/dL >40 Apr 29, 2024 01:[address] [facility] COMPREHENSIVE METABOLIC PANEL Specimen Type: PLASMA Comment: No hemolysis noted. Ordering Provider: LUCIA STEWART Report Released Date/Time: Apr 29, 2024 01:29 PM Reporting Lab: [facility] [address] [place] [phone] Performing Lab: [facility] [address] [place] [phone] CREATININE 0.71 mg/dL 0.6-1.1 UREA NITROGEN 14.0 [...] 109.5 >60 Apr 29, 2024 01:[address] [facility] CBC Specimen Type: BLOOD No comment entered. Ordering Provider: LUCIA STEWART Report Released Date/Time: Apr 29, 2024 01:29 PM Reporting Lab: [facility] [address] [place] [phone] Performing Lab: [facility] [address] [place] [phone] WBC 9.3 10*3/uL 3.6-11.2 RBC 5.14 10*6/uL [...] 10*3/uL 0.00-0.60 BASOPHILS, ABSOLUTE 0.03 10*3/uL 0.00-0.20 Advance Directives: All historical and current Section Date Range: From patient's date of to the date document was created. This section includes ALL of a patient's completed or amended [place] Advance and Rescinded Directives. The entries below indicate that a directive exists for the patient, but an actual copy is not included with this document. The data comes from all [place] facilities. Date Advance Directives Provider Source Apr 06, 2015 ADVANCE DIRECTIVE DISCUSSION KEREN SKY [facility] Encounter Notes: All associated encounter notes This section contains the clinical notes associated to the Encounter. Date/Time Encounter Note(s) Provider Source Apr 11, 2024 08:57 AM PHARMACY MEDICATION MGT DISCHARGE NOTE: LOCAL TITLE: PHARMACY COMMUNITY CARE PRESCRIPTION PROCESSING NOT STANDARD TITLE: PHARMACY MEDICATION MGT DISCHARGE NOTE DATE OF NOTE: APR 11, 2024@08:57 ENTRY DATE: APR 11, 2024@08:57:25 AUTHOR: NYASIA PERSAUDI EXP COSIGNER: URGENCY: STATUS: COMPLETED Pharmacy service received prescription(s) via: Inbound ERx ELIGIBILITY: [facility] ([facility]) eligibility has been verified and/or is documented. Authorization #: in [facility] emergency room PRESCRIPTION INFORMATION: [facility]: [phone] 1) eRx Drug : prochlorperazine maleate 10 mg tablet (COMPAZINE)eRx SIG : Take 1 Tablet (10 mg) by mouth every 6 hours as needed for Other (See Comment) (Headache). DISPOSITION: The medication(s) prescribed is/are formulary without criteria for use or other restrictions, and will be dispensed to the patient. /glen/ NYASIA PERSAUD, [facility] Pharmacist, Pharmacy Signed: 04/11/2024 15:53 NYASIA PERSAUD [facility]
--- OUTSIDE RECORDS SUMMARY | 2024-05-04 13:31 | XMS_ITS | Encounter Summary ---
Author Name [facility] [facility] [place] Address [address] [place] [address] Care Team Providers Care Brim And Crown Presser Name Role Phone DAMION STEWART Primary Care Provider Unavailab le Selected Encounter This section includes the information on record at [place] for the Encounter. Date/Time Encounter Type Encounter Description Reason Provider Source Apr 12, 2024 02:47 PM Outpatient Encounter GENERAL INTERNAL MEDICINE RADHA ARZATE IHIndu Encounter Template Text not used by [place] Plan of Treatment: Future Appointments (+ 6 months) and Future Tests (+/- 45 days) The Plan of Treatment section includes future care activities for the patient from all [place] treatmentfacilities. This section includes future appointments and future orders which are active, pending or scheduled. Future Appointments This section includes appointments that were scheduled to occur 6 months from the date of the Encounter, up to a maximum of 20 appointments. The data comes from all [place] treatment facilities. Appointment Date/Time Appointment Type Appointme nt Facility Name Apr 26, 2024 03:00 PM AMBULATORY - MEDICINE [facility] Apr 29, 2024 12:30 PM AMBULATORY - MEDICINE [facility] May 04, 2024 04:15 PM AMBULATORY - MEDICINE [facility] May 24, 2024 02:00 PM AMBULATORY - MEDICINE [facility] May 24, 2024 03:00 PM AMBULATORY - SURGERY [facility] Jul 12, 2024 02:30 PM AMBULATORY - PSYCHIATRY [facility] Aug 04, 2024 11:30 AM AMBULATORY - SURGERY [facility] Active, Pending, and Scheduled Orders This section includes a listing of several types of active, pending, and scheduled orders, including clinic medications orders, diagnostic test orders, procedure orders and consult orders; where the start date of the order is 45 days before the date of the Encounter or 45 days after the date of theEncounter. The data comes from all [place] treatment facilities. Test Date/Time Test Type Test Details Facility Name Apr 11, 2024 04:42 PM Consult Order ALLERGY OU TPT STL Cons [facility] Apr 19, 2024 04:58 PM Procedure Order HOLTER MON ITOR STL CP HOLTER MONITOR STL Proc [facility] Apr 29, 2024 12:00 AM Laboratory - Chemi stry Order HEP C Ab HCV Ab (RUST) GOLD/RED SST SERUM SP [facility] Apr 29, 2024 01:45 PM Consult Order GYNECOLOGY SERVICES OUTPT [facility] Apr 29, 2024 01:45 PM Consult Order NEUROLOGY OUTPATIENT LEOPOLDO [facility] Apr 29, 2024 01:45 PM Consult Order COMMUNITY CARE-STL SLEEP STUDY [facility] Lab Results: +/- 30 days of the encounter This section includes the Chemistry and Hematology Lab Results on record with [place] for the patient. Radiology Reports and Pathology Reports are provided separately, in subsequent sections. Lab Results This section contains the Chemistry/Hematology Results that were resulted 30 days before or 30 daysafter the date of the Encounter. Date/Time Source Result Type Result - Unit Interpretation Reference Range Comment Apr 29, 2024 01:43 PM [facility] TSH W/ REFLEX FT4 (RUST) Specimen Type: PLASMA No comment entered. Ordering Provider: LUCIA STEWART Report Released Date/Time: Apr 29, 2024 01:29 PM Reporting Lab: [facility] [address] [id number] Performing Lab: [facility] [address] [place] [phone] TSH 1.940 u[IU]/mL 0.47-5 Apr 29, 2024 01:43 PM [facility] HGA1C Specimen Type: BLOOD No comment entered. Ordering Provider: LUCIA STEWART Report Released Date/Time: Apr 29, 2024 01:29 PM Reporting Lab: [facility] [address] [place] [phone] Performing Lab: [address] [phone] HGA1C 6.2 H 4.0-6.0 Apr 29, 2024 01:43 PM [facility] LIPID PANEL (STL) Specimen Type: PLASMA Comment: No hemolysis noted. Ordering Provider: LUCIA STEWART Report Released Date/Time: Apr 29, 2024 01:29 PM Reporting Lab: [facility] [address] [place] [phone] Performing Lab: [facility] [address] [place] [phone] CHOLESTEROL 193 mg/dL 0-200 TRIGLYCERIDE 205 mg/dL H 0-150 CALCULATED LDL 112 mg/dL HDL(New) 40 mg/dL >40 Apr 29, 2024 01:43 PM [facility] COMPREHENSIVE METABOLIC PANEL Specimen Type: PLASMA Comment: No hemolysis noted. Ordering Provider: LUCIA STEWART Report Released Date/Time: Apr 29, 2024 01:29 PM Reporting Lab: [facility] [address] [place] [phone] Performing Lab: [facility] [address] [place] [phone] CREATININE 0.71 mg/dL 0.6-1.1 UREA NITROGEN 14.0 [...] 109.5 >60 Apr 29, 2024 01:43 PM [facility] CBC Specimen Type: BLOOD No comment entered. Ordering Provider: LUCIA STEWART Report Released Date/Time: Apr 29, 2024 01:29 PM Reporting Lab: [facility] [address] [phone] Performing Lab: [facility] [address] [phone] WBC 9.3 10*3/uL 3.6-11.2 RBC 5.14 10*6/uL [...] 10*3/uL 0.00-0.60 BASOPHILS, ABSOLUTE 0.03 10*3/uL 0.00-0.20 Social History: Smoking Status (Most current) and Tobacco Use (All prior to encounter date) This section includes the most current, and the historical, smoking and tobacco- related health factors from the [place] facility where the Encounter took place. Current Smoking Status This section includes the most current smoking, or tobacco-related health factor, from the [place] facility where the Encounter took place. Date/Time Current Smoking Status Comment Maury li Apr 21, 2022 02:46 PM [place]-TOBACCO FORMER USER [facility] Tobacco Use History This section includes a history of the smoking, or tobacco-related health factors, that were collected on or before the date of the Encounter. The data comes from the [place] facility where the Encounter took place. Date/Time Smoking Status/Tobacco Use Comment F acility Apr 21, 2022 02:46 PM [place]AC[place] QUIT 5 TO < 15 YRS [facility] Mar 06, 2016 10:40 AM LIFETIME NON-USER OF TOBACCO [facility] Advance Directives: All historical and current Section Date Range: From patient's date of to the date document was created. This section includes ALL of a patient's completed or amended [place] Advance and Rescinded Directives. The entries below indicate that a directive exists for the patient, but an actual copy is not included with this document. The data comes from all [place] facilities. Date Advance Directives Provider Source Apr 06, 2015 ADVANCE DIRECTIVE DISCUSSION KEREN SKY [facility] Encounter Notes: All associated encounter notes This section contains the clinical notes associated to the Encounter. Date/Time Encounter Note(s) Provider Source Apr 15, 2024 12:34 PM ADDENDUM: LOCAL TITLE: Addendum STANDARD TITLE: ADDENDUM DATE OF NOTE: APR 15, 2024@12:34:01 ENTRY DATE: APR 15, 2024@12:34:02 AUTHOR: DAMION STEWART COSIGNER: URGENCY: STATUS: COMPLETED As previously stated, a follow up with PCP is recommended prior to placing above requested consults. PCP's have been advised we are no longer able to place consults for community care for services available within the [place]. At this time she would need more evaluation before she would meet criteria for either a [facility] Cardiology or Neurology consult, based on review of notes from the ER. Have tried to reach out to patient to schedule f/u visit, no response as of yet. I can place a new consult for a holter monitor to further evaluate the tachycardia if she is ok with this. Please advise patient she has no [facility] authorized consults at this time. /glen/ DAMION STEWART Staff Physician Signed: 04/15/2024 12:37 Receipt Acknowledged By: 04/15/2024 14:25 /es/ Aniceto Guzman Rn, BSN REGISTERED NURSE * AWAITING SIGNATURE * NAHEED LAYTON [place] 04/15/2024 14:39 /es/ LILLIAN FUNK REGISTERED NURSE --- Original Document --- 04/09/24 [facility] PRESENTING CARE COORD PLAN 657 STL: Emergency Notification Intake Date Presenting to the Facility: Apr Method of Contact: Submitted to Centralized Call Center Notification ID: [id number] [facility] Referral #: [id number] Clinical Review [facility] Name: Hospital: [facility] Address: City: [place] State: [place] Zip Code: Phone : Community Facility Point of Contact: Name: Phone: Chief complaint: RAPID HEART RATE, Tachycardia Primary Diagnosis: Disposition Unknown at time of intake note entry [place] records sent [place] to [place] [facility] and [facility]. [facility]. [facility] alerted via ECR Tool for eligibility review. No further records available. Alerting PCP team to this note for continuity of care. Evaluated and released from ED for: PALPITATIONS, ACUTE NONINTRACTABLE HEADACHE Discharge Summary Records:SHARED SECURELY WITH PACT RN AND [facility] Hospital/discharge Summary (per discharge note): The patient is a 43-year-old female who presents to the emergency department for evaluation of a rapid heart rate. Concurrently, she experienced a persistent headache since morning, which intensified over time. 1910 Patient had 2 negative troponins, a nonischemic EKG. Her D-dimer suggest a low probability of pulmonary embolism. Her creatinine is elevated compared to prior. Her chest x-ray and CT scan are nonconcerning for any acute disease. Plan to reassess patient and likely discharge. [MP] 191 Patient reassessed. Her headache is improved. Plan to administer another 5 mg dose of Compazine as well as Benadryl. Anticipate discharge. [MP] 2007 Patient reassessed. She is feeling better following her medications. I discussed follow-up and return precautions with the patient. She is agreeable for discharge. I informed her of her elevated creatinine, and she agreed to discuss with her primary care doctor. Referrals placed to see cardiology as well as neurology. Return precautions emphasized. Important Medication Changes: Start - prochlorperazine maleate (COMPAZINE) 10 mg tablet Take 1 Tablet (10 mg) by mouth every 6 hours as needed Stop -N/A Change-N/A *Medication reconciliation needed* Post-Discharge Needs PACT: 1) [facility] PCP follow up -F/U W/PCP; elevated creatinine PACT Please place the below consults: -CARDIOLOGY -NEUROLOGY (Community Care or [place] internal consults needed for ALL follow up care) /glen/ YAEL ALDANA RN REGISTERED NURSE Signed: 04/12/2024 14:54 Receipt Acknowledged By: 04/13/2024 08:13 /glen/ DAMION STEWART Staff Physician 04/12/2024 15:39 /glen/ Aniceto Guzman Rn, BSN REGISTERED NURSE 04/13/2024 15:17 /glen/ LILLIAN FUNK REGISTERED NURSE 04/13/2024 ADDENDUM STATUS: COMPLETED Would need further assessment prior to any specialty consults being placed. Currently has appt scheduled 06/08/2024. Please contact patient to see if she needs to move her PCP appt sooner for ER f/u. /glen/ DAMION STEWART Staff Physician Signed: 04/13/2024 08:14 Receipt Acknowledged By: 04/13/2024 08:58 /glen/ Aniceto Guzman Rn, BSN REGISTERED NURSE 04/13/2024 ADDENDUM STATUS: COMPLETED pt called at the number listed in the chart. A vm was left to call the clinic and a secure message was sent /bird Guzman Rn, BSN REGISTERED NURSE Signed: 04/13/2024 09:01 04/15/2024 ADDENDUM STATUS: COMPLETED 2nd Request: PCP please place the following consults: 1) Cardiology - for palpitations 2) Neurology - for headaches Alerting PCP team to this note for continuity of care. /bird FUNK REGISTERED NURSE Signed: 04/15/2024 10:55 Receipt Acknowledged By: 04/15/2024 12:32 /bird STEWART Staff Physician 04/15/2024 14:26 /glen/ Aniceto Guzman Rn, BSN REGISTERED NURSE 04/15/2024 ADDENDUM STATUS: UNSIGNED You may not VIEW this UNSIGNED Addendum. DAMION STEWART [facility] Apr 15, 2024 10:52 AM ADDENDUM: LOCAL TITLE: Addendum STANDARD TITLE: ADDENDUM DATE OF NOTE: APR 15, 2024@10:52:19 ENTRY DATE: APR 15, 2024@10:52:20 AUTHOR: LILLIAN FUNK EXP COSIGNER: URGENCY: STATUS: COMPLETED 2nd Request: PCP please place the following consults: 1) Cardiology - for palpitations 2) Neurology - for headaches Alerting PCP team to this note for continuity of care. /bird FUNK REGISTERED NURSE Signed: 04/15/2024 10:55 Receipt Acknowledged By: 04/15/2024 12:32 /bird STEWART Staff Physician 04/15/2024 14:26 /glen/ Aniceto Guzman Rn, BSN REGISTERED NURSE --- Original Document --- 04/09/24 [facility] PRESENTING CARE COORD PLAN 657 STL: Emergency Notification Intake Date Presenting to the Facility: Apr Method of Contact: Submitted to Centralized Call Center Notification ID: [id number] [facility] Referral #: [id number] Clinical Review [facility] Name: Hospital: [facility] Address: City: [place] State: [place] Zip Code: Phone : Community Facility Point of Contact: Name: Phone: Chief complaint: RAPID HEART RATE, Tachycardia Primary Diagnosis: Disposition Unknown at time of intake note entry [place] to [place] [facility]. [facility]. [facility] alerted via ECR Tool for eligibility review. No further records available. Alerting PCP team to this note for continuity of care. Evaluated and released from ED for: PALPITATIONS, ACUTE NONINTRACTABLE HEADACHE Discharge Summary Records:SHARED SECURELY WITH PACT RN AND [facility] Hospital/discharge Summary (per discharge note): The patient is a 43-year-old female who presents to the emergency department for evaluation of a rapid heart rate. Concurrently, she experienced a persistent headache since morning, which intensified over time. 1910 Patient had 2 negative troponins, a nonischemic EKG. Her D-dimer suggest a low probability of pulmonary embolism. Her creatinine is elevated compared to prior. Her chest x-ray and CT scan are nonconcerning for any acute disease. Plan to reassess patient and likely discharge. [MP] 1915 Patient reassessed. Her headache is improved. Plan to administer another 5 mg dose of Compazine as well as Benadryl. Anticipate discharge. [MP] 2007 Patient reassessed. She is feeling better following her medications. I discussed follow-up and return precautions with the patient. She is agreeable for discharge. I informed her of her elevated creatinine, and she agreed to discuss with her primary care doctor. Referrals placed to see cardiology as well as neurology. Return precautions emphasized. Important Medication Changes: Start - prochlorperazine maleate (COMPAZINE) 10 mg tablet Take 1 Tablet (10 mg) by mouth every 6 hours as needed Stop -N/A Change-N/A *Medication reconciliation needed* Post-Discharge Needs PACT: 1) [facility] PCP follow up -F/U W/PCP; elevated creatinine PACT Please place the below consults: -CARDIOLOGY -NEUROLOGY (Community Care or [place] internal consults needed for ALL follow up care) /bird ALDANA RN REGISTERED NURSE Signed: 04/12/2024 14:54 Receipt Acknowledged By: 04/13/2024 08:13 /glen/ DAMION STEWART Staff Physician 04/12/2024 15:39 /glen/ Aniceto Guzman Rn, BSN REGISTERED NURSE 04/13/2024 15:17 /glen/ LILLIAN FUNK REGISTERED NURSE 04/13/2024 ADDENDUM STATUS: COMPLETED Would need further assessment prior to any specialty consults being placed. Currently has appt scheduled 06/08/2024. Please contact patient to see if she needs to move her PCP appt sooner for ER f/u. /bird STEWART Staff Physician Signed: 04/13/2024 08:14 Receipt Acknowledged By: 04/13/2024 08:58 /glen/ Aniceto Guzman Rn, BSN REGISTERED NURSE 04/13/2024 ADDENDUM STATUS: COMPLETED pt called at the number listed in the chart. A vm was left to call the clinic and a secure message was sent /bird Guzman Rn, BSN REGISTERED NURSE Signed: 04/13/2024 09:01 04/15/2024 ADDENDUM STATUS: COMPLETED As previously stated, a follow up with PCP is recommended prior to placing above requested consults. PCP's have been advised we are no longer able to place consults for community care [place]. At this time she would need more evaluation before she would meet criteria for either a [place] Cardiology or Neurology consult, based on review of notes from the ER. Have tried to reach out to patient to schedule f/u visit, no response as of yet. I can place a new consult for a holter monitor to further evaluate the tachycardia if she is ok with this. Please advise patient she has no community care authorized consults at this time. /bird STEWART Staff Physician Signed: 04/15/2024 12:37 Receipt Acknowledged By: 04/15/2024 14:25 /glen/ Aniceto Guzman Rn, BSN REGISTERED NURSE * AWAITING SIGNATURE * NAHEED LAYTON * AWAITING SIGNATURE * LILLIAN FUNK GRETCHEN J [facility] Apr 13, 2024 08:13 AM ADDENDUM: LOCAL TITLE: Addendum STANDARD TITLE: ADDENDUM DATE OF NOTE: APR 13, 2024@08:13:37 ENTRY DATE: APR 13, 2024@08:13:38 AUTHOR: DAMION STEWART EXP COSIGNER: URGENCY: STATUS: COMPLETED Would need further assessment prior to any specialty consults being placed. Currently has appt scheduled 06/08/2024. Please contact patient to see if she needs to move her PCP appt sooner for ER f/u. /glen/ DAMION STEWART Staff Physician Signed: 04/13/2024 08:14 Receipt Acknowledged By: 04/13/2024 08:58 /glen/ Aniceto Guzman Rn, BSN REGISTERED NURSE --- Original Document --- 04/09/24 [facility] PRESENTING CARE COORD PLAN 657 STL: Emergency Notification Intake Date Presenting to the Facility: Apr Method of Contact: Submitted to Centralized Call Center Notification ID: [id number] [facility] Referral #: [id number] Clinical Review [facility] Name: Hospital: [facility] Address: City: [place] State: [place] Zip Code: Phone : Community Facility Point of Contact: Name: Phone: Chief complaint: RAPID HEART RATE, Tachycardia Primary Diagnosis: Disposition Unknown at time of intake note entry [place] sent [place] to [place] [facility] and RNCM. Records sent to [facility] for expedited upload. [facility] alerted via ECR Tool for eligibility review. No further records available. Alerting PCP team to this note for continuity of care. Evaluated and released from ED for: PALPITATIONS, ACUTE NONINTRACTABLE HEADACHE Discharge Summary Records:SHARED SECURELY WITH PACT RN AND SENT TO [facility] FOR [facility]ANNING Hospital/discharge Summary (per discharge note): The patient is a 43-year-old female who presents to the emergency department for evaluation of a rapid heart rate. Concurrently, she experienced a persistent headache since morning, which intensified over time. 1910 Patient had 2 negative troponins, a nonischemic EKG. Her D-dimer suggest a low probability of pulmonary embolism. Her creatinine is elevated compared to prior. Her chest x-ray and CT scan are nonconcerning for any acute disease. Plan to reassess patient and likely discharge. [MP] 1915 Patient reassessed. Her headache is improved. Plan to administer another 5 mg dose of Compazine as well as Benadryl. Anticipate discharge. [MP] 2007 Patient reassessed. She is feeling better following her medications. I discussed follow-up and return precautions with the patient. She is agreeable for discharge. I informed her of her elevated creatinine, and she agreed to discuss with her primary care doctor. Referrals placed to see cardiology as well as neurology. Return precautions emphasized. Important Medication Changes: Start - prochlorperazine maleate (COMPAZINE) 10 mg tablet Take 1 Tablet (10 mg) by mouth every 6 hours as needed Stop -N/A Change-N/A *Medication reconciliation needed* Post-Discharge Needs PACT: 1) [facility] PCP follow up -F/U W/PCP; elevated creatinine PACT Please place the below consults: -CARDIOLOGY -NEUROLOGY (Community Care or [place] internal consults needed for ALL follow up care) /glen/ YAEL ALDANA RN REGISTERED NURSE Signed: 04/12/2024 14:54 Receipt Acknowledged By: 04/13/2024 08:13 /glen/ DAMION STEWART Staff Physician 04/12/2024 15:39 /glen/ Aniceto J Pepper Rn, BSN REGISTERED NURSE * AWAITING SIGNATURE * CHAPO FUNKJENNIFER Guevara 04/13/2024 ADDENDUM STATUS: UNSIGNED You may not VIEW this UNSIGNED Addendum. DAMION STEWART [facility] Apr 09, 2024 02:47 PM NONVA NOTE: LOCAL TITLE: [facility]F PRESENTING CARE COORD PLAN STANDARD TITLE: NONVA NOTE DATE OF NOTE: APR 09, 2024@14:47 ENTRY DATE: APR 12, 2024@14:47:28 AUTHOR: YAEL ARZATE EXP COSIGNER: URGENCY: STATUS: COMPLETED [facility]F PRESENTING CARE COORD PLAN 657 STL Has ADDENDA Emergency Notification Intake Date Presenting to the Facility: Apr Method of Contact: Submitted to Centralized Call Center Notification ID: [id number] [facility] Referral #: [id number] Clinical Review [facility] Name: Hospital: [facility] Address: City: [place] State: [place] Zip Code: Phone : [facility] Point of Contact: Name: Phone: Chief complaint: RAPID HEART RATE, Tachycardia Primary Diagnosis: Disposition Unknown at time of intake note entry [place] records sent securely to [place] PCP and RNCM. Records sent to [facility] for expedited upload. [facility] alerted via ECR Tool for eligibility review. No further records available. Alerting PCP team to this note for continuity of care. Evaluated and released from ED for: PALPITATIONS, ACUTE NONINTRACTABLE HEADACHE Discharge Summary Records:SHARED SECURELY WITH PACT RN AND [facility] Hospital/discharge Summary (per discharge note): The patient is a 43-year-old female who presents to the emergency department for evaluation of a rapid heart rate. Concurrently, she experienced a persistent headache since morning, which intensified over time. 1910 Patient had 2 negative troponins, a nonischemic EKG. Her D-dimer suggest a low probability of pulmonary embolism. Her creatinine is elevated compared to prior. Her chest x-ray and CT scan are nonconcerning for any acute disease. Plan to reassess patient and likely discharge. [MP] 1915 Patient reassessed. Her headache is improved. Plan to administer another 5 mg dose of Compazine as well as Benadryl. Anticipate discharge. [MP] 2007 Patient reassessed. She is feeling better following her medications. I discussed follow-up and return precautions with the patient. She is agreeable for discharge. I informed her of her elevated creatinine, and she agreed to discuss with her primary care doctor. Referrals placed to see cardiology as well as neurology. Return precautions emphasized. Important Medication Changes: Start - prochlorperazine maleate (COMPAZINE) 10 mg tablet Take 1 Tablet (10 mg) by mouth every 6 hours as needed Stop -N/A Change-N/A *Medication reconciliation needed* Post-Discharge Needs PACT: 1) [facility] P[facility] follow up -F/U W/PCP; elevated creatinine PACT Please place the below consults: -CARDIOLOGY -NEUROLOGY ([place] or [place] internal consults needed for ALL follow up care) /glen/ YAEL ALDANA RN REGISTERED NURSE Signed: 04/12/2024 14:54 Receipt Acknowledged By: 04/13/2024 08:13 /glen/ DAMION STEWART Staff Physician 04/12/2024 15:39 /glen/ Aniceto Guzman Rn, BSN REGISTERED NURSE 04/13/2024 15:17 /glen/ LILLIAN FUNK REGISTERED NURSE 04/13/2024 ADDENDUM STATUS: COMPLETED Would need further assessment prior to any specialty consults being placed. Currently has appt scheduled 06/08/2024. Please contact patient to see if she needs to move her PCP appt sooner for ER f/u. /glen/ DAMION STEWART Staff Physician Signed: 04/13/2024 08:14 Receipt Acknowledged By: 04/13/2024 08:58 /glen/ Aniceto Guzman Rn, BSN REGISTERED NURSE 04/13/2024 ADDENDUM STATUS: COMPLETED pt called at the number listed in the chart. A vm was left to call the clinic and a secure message was sent /bird Guzman Rn, BSN REGISTERED NURSE Signed: 04/13/2024 09:01 04/15/2024 ADDENDUM STATUS: COMPLETED 2nd Request: PCP please place the following consults: 1) Cardiology - for palpitations 2) Neurology - for headaches Alerting PCP team to this note for continuity of care. /bird FUNK REGISTERED NURSE Signed: 04/15/2024 10:55 Receipt Acknowledged By: 04/15/2024 12:32 /glen/ DAMION STEWART Staff Physician 04/15/2024 14:26 /glen/ Aniceto Guzman Rn, BSN REGISTERED NURSE 04/15/2024 ADDENDUM STATUS: COMPLETED As previously stated, a follow up with PCP is recommended prior to placing above requested consults. PCP's have been advised we are no longer able to place consults for community care for services available within the [place]. At this time she would need more evaluation before she would meet criteria for either a [place] Cardiology or Neurology consult, based on review of notes from the ER. Have tried to reach out to patient to schedule f/u visit, no response as of yet. I can place a new consult for a holter monitor to further evaluate the tachycardia if she is ok with this. Please advise patient she has no community care authorized consults at this time. /bird STEWART Staff Physician Signed: 04/15/2024 12:37 Receipt Acknowledged By: 04/15/2024 14:25 /geln/ Aniceto Guzman Rn, BSN REGISTERED NURSE * AWAITING SIGNATURE * NAHEED LAYTON 04/15/2024 14:39 /bird FUNK REGISTERED NURSE 04/15/2024 ADDENDUM STATUS: COMPLETED Patient has been contacted by PCP team in regards to requested consults, both by phone and by secure message, with no reply. EOC complete. /bird FUNK REGISTERED NURSE Signed: 04/15/2024 14:40 YAEL ARZATE [facility]
--- OUTSIDE RECORDS SUMMARY | 2024-05-04 13:31 | XMS_ITS | Encounter Summary ---
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 Date/Time Encounter Type Encounter Description Reason Pro vider Source May 03, 2024 11:32 AM Outpatient Encounter ADMIN PAT ACTIVTIES (MASNONCT) IHE Encounter Template Text not used by [place] Plan of Treatment: Future Appointments (+ 6 months) and Future Tests (+/- 45 days) The Plan of Treatment section includes future care activities for the patient from all [place] treatmentfacilities. This section includes future appointments and future orders which are active, pending or scheduled. Future Appointments This section includes appointments that were scheduled to occur 6 months from the date of the Encounter, up to a maximum of 20 appointments. The data comes from all [place] treatment facilities. Appointment Date/Time Appointment Type Appointme nt Facility Name May 04, 2024 04:15 PM AMBULATORY - MEDICINE [facility] May 24, 2024 02:00 PM AMBULATORY - MEDICINE [facility] May 24, 2024 03:00 PM AMBULATORY - SURGERY [facility] Jul 12, 2024 02:30 PM AMBULATORY - PSYCHIATRY [facility] Aug 04, 2024 11:30 AM AMBULATORY - SURGERY [facility] Nov 01, 2024 02:30 PM AMBULATORY - MEDICINE [facility] Active, Pending, and Scheduled Orders This section includes a listing of several types of active, pending, and scheduled orders, including clinic medications orders, diagnostic test orders, procedure orders and consult orders; where the start date of the order is 45 days before the date of the Encounter or 45 days after the date of theEncounter. The data comes from all [place] treatment facilities. Test Date/Time Test Type Test Details Facility Name Apr 11, 2024 04:42 PM Consult Order ALLERGY OU TPT STL Cons [employer] [facility]'s Choice [facility] Apr 19, 2024 04:58 PM Procedure Order HOLTER MON ITOR STL CP HOLTER MONITOR STL Proc [employer] [facility] Apr 29, 2024 12:00 AM Laboratory - Chemi stry Order HEP C Ab HCV Ab ([facility]) GOLD/RED SST SERUM SP [facility] Apr 29, 2024 01:45 PM Consult Order GYNECOLOGY SERVICES OUTPT [facility] [employer] [facility] Apr 29, 2024 01:45 PM Consult Order NEUROLOGY OUTPATIENT [facility] [employer] [facility] Apr 29, 2024 01:45 PM Consult Order COMMUNITY CARE-STL SLEEP STUDY [facility] [employer] [facility] Lab Results: +/- 30 days of the encounter This section includes the Chemistry and Hematology Lab Results on record with [place] for the patient. Radiology Reports and Pathology Reports are provided separately, in subsequent sections. Lab Results This section contains the Chemistry/Hematology Results that were resulted 30 days before or 30 daysafter the date of the Encounter. Date/Time Source Result Type Result - Unit Interpretation Reference Range Comment Apr 29, 2024 01:43 PM [facility] TSH W/ REFLEX FT4 (L) Specimen Type: PLASMA No comment entered. Ordering Provider: LUCIA STEWART Report Released Date/Time: Apr 29, 2024 01:29 PM Reporting Lab: [facility] [address] [facility] [phone] Performing Lab: [facility] [address] [place] [phone] TSH 1.940 u[IU]/mL 0.47-5 Apr 29, 2024 01:43 PM [facility] HGA1C Specimen Type: BLOOD No comment entered. Ordering Provider: LUCIA STEWART Report Released Date/Time: Apr 29, 2024 01:29 PM Reporting Lab: [facility] [address] [place] [phone] Performing Lab: [address] [phone] HGA1C 6.2 H 4.0-6.0 Apr 29, 2024 01:43 PM [facility] LIPID PANEL (STL) Specimen Type: PLASMA Comment: No hemolysis noted. Ordering Provider: LUCIA STEWART Report Released Date/Time: Apr 29, 2024 01:29 PM Reporting Lab: [facility] [address] [place] [phone] Performing Lab: [address] [phone] CHOLESTEROL 193 mg/dL 0-200 TRIGLYCERIDE 205 mg/dL H 0-150 CALCULATED LDL 112 mg/dL HDL(New) 40 mg/dL >40 Apr 29, 2024 01:43 PM [facility] COMPREHENSIVE METABOLIC PANEL Specimen Type: PLASMA Comment: No hemolysis noted. Ordering Provider: LUCIA STEWART Report Released Date/Time: Apr 29, 2024 01:29 PM Reporting Lab: [facility] [address] [place] [phone] Performing Lab: [address] [phone] CREATININE 0.71 mg/dL 0.6-1.1 UREA NITROGEN 14.0 [...] 109.5 >60 Apr 29, 2024 01:43 PM [facility] CBC Specimen Type: BLOOD No comment entered. Ordering Provider: LUCIA STEWART Report Released Date/Time: Apr 29, 2024 01:29 PM Reporting Lab: [facility] [address] [facility] [phone] Performing Lab: [facility] [address] [facility] [phone] WBC 9.3 10*3/uL 3.6-11.2 RBC 5.14 10*6/uL [...] and tobacco- related health factors from the [place] facility where the Encounter took place. Current Smoking Status This section includes the most current smoking, or tobacco-related health factor, from the [place] facility where the Encounter took place. Date/Time Current Smoking Status Comment Maury li Apr 21, 2022 02:46 PM VA-TOBACCO FORMER USER [facility] Tobacco Use History This section includes a history of the smoking, or tobacco-related health factors, that were collected on or before the date of the Encounter. The data comes from the [place] facility where the Encounter took place. Date/Time Smoking Status/Tobacco Use Comment F jacki Apr 21, 2022 02:46 PM [place]-TOBACCO QUIT 5 TO < 15 YRS [facility] Mar 06, 2016 10:40 AM LIFETIME NON-USER OF TOBACCO [facility] Advance Directives: All historical and current Section Date Range: From patient's date of to the date document was created. This section includes ALL of a patient's completed or amended [place] Advance and Rescinded Directives. The entries below indicate that a directive exists for the patient, but an actual copy is not included with this document. The data comes from all [place] facilities. Date Advance Directives Provider Source Apr 06, 2015 ADVANCE DIRECTIVE DISCUSSION KEREN SKY [facility] Encounter Notes: All associated encounter notes This section contains the clinical notes associated to the Encounter. Date/Time Encounter Note(s) Provider Source May 03, 2024 11:32 AM PHYSICIAN LETTERS: LOCAL TITLE: NO CONTACT LETTER ST STANDARD TITLE: PHYSICIAN LETTERS DATE OF NOTE: MAY 03, 2024@11:32 ENTRY DATE: MAY 03, 2024@11:32:33 AUTHOR: CHARMAINE ORNELAS EXP COSIGNER: URGENCY: STATUS: COMPLETED [facility] [address] [place] [address] MAY 03, 2024 ALIX GRIMES [address] [place], [place] [address] Dear Alix Grimes, Thank you for choosing the [facility] as your primary choice for health care. As a partner in your health care, we are attempting to contact you because we have been unsuccessful in reaching you by phone to schedule your clinic appointment. Please call us at [phone], extension [phone] to speak to us regarding making an appointment in the [facility] clinic. Your good health is important to us. Please contact us within 2 weeks from the date of this letter. If we do not hear from you, we will notify your referring provider and a new referral will be required to schedule an appointment. IMPORTANT: Due to COVID-19 we have greatly expanded our telehealth options, please contact the clinic to inquire about scheduling. Sincerely, CHARMAINE ORNELAS ADVANCED SENIOR BUSINESS MANAGER ALIX GRIMES [facility]
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
--- OUTSIDE RECORDS SUMMARY | 2024-05-04 13:31 | XMS_ITS | Encounter Summary ---
Author Name [facility] [place] Organization [facility] [place] Address [address] [place] [address] Care Team Providers Care Surveillance Supervisor Name Role Phone DAMION STEWART Primary Care Provider Unavailab le Selected Encounter This section includes the information on record at [place] for the Encounter. Date/Time Encounter Type Encounter Description Reason Provider Source Apr 11, 2024 03:00 PM OFFICE O/P NEW LOW 30 MIN OTOLARYNGOLOGY/EN T ICD-10-CM R49.0 Dysphonia SHERYL RICHARD Encounter Template Text not used by [place] Assessments - Encounter Diagnoses This section includes the primary and secondary diagnoses documented for the Encounter. Date/Time Primary/Secondary Diagnosis Diagnosis Name Provider Source Apr 11, 2024 04:31 PM PRIMARY Dysphonia MEETA ELY [facility] Apr 11, 2024 04:31 PM SECONDARY Chronic rhinitis MEETA ELY [facility] Plan of Treatment: Future Appointments (+ 6 months) and Future Tests (+/- 45 days) The Plan of Treatment section includes future care activities for the patient from all [place] treatmentfacilities. This section includes future appointments and future orders which are active, pending or scheduled. Future Appointments This section includes appointments that were scheduled to occur 6 months from the date of the Encounter, up to a maximum of 20 appointments. The data comes from all [facility]. Appointment Date/Time Appointment Type Appointme nt Facility Name Apr 26, 2024 03:00 PM AMBULATORY - MEDICINE [facility] Apr 29, 2024 12:30 PM AMBULATORY - MEDICINE [facility] May 04, 2024 04:15 PM AMBULATORY - MEDICINE [facility] May 24, 2024 02:00 PM AMBULATORY - MEDICINE [facility] May 24, 2024 03:00 PM AMBULATORY - SURGERY [facility] Jul 12, 2024 02:30 PM AMBULATORY - PSYCHIATRY [facility] Aug 04, 2024 11:30 AM AMBULATORY - SURGERY [facility] Active, Pending, and Scheduled Orders This section includes a listing of several types of active, pending, and scheduled orders, including clinic medications orders, diagnostic test orders, procedure orders and consult orders; where the start date of the order is 45 days before the date of the Encounter or 45 days after the date of theEncounter. The data comes from all [facility]. Test Date/Time Test Type Test Details Facility Name Apr 11, 2024 04:42 PM Consult Order ALLERGY OU TPT STL Cons Plate [employer]inter[employer] Choice [facility] Apr 19, 2024 04:58 PM Procedure Order HOLTER MON ITOR STL CP HOLTER MONITOR STL Proc Plate [employer] Choice [facility] Apr 29, 2024 12:00 AM Laboratory - Chemi stry Order HEP C Ab HCV Ab (L) GOLD/RED SST SERUM SP [facility] Apr 29, 2024 01:45 PM Consult Order GYNECOLOGY SERVICES OUTPT Cons [employer] [facility] Apr 29, 2024 01:45 PM Consult Order NEUROLOGY OUTPATIENT [place] [facility] [employer] [facility] Apr 29, 2024 01:45 PM Consult Order COMMUNITY CARE-STL SLEEP STUDY Cons [employer] [facility] Lab Results: +/- 30 days of the [...] Range Comment Apr 29, 2024 01:43 PM [facility] TSH W/ REFLEX FT4 (STL) Specimen Type: PLASMA No comment entered. Ordering Provider: LUCIA STEWART Report Released Date/Time: Apr 29, 2024 01:29 PM Reporting Lab: [facility] [address] [address] [address] [address] [facility] [address] [id number] Performing Lab: [facility] [address] [place] [id number] TSH 1.940 u[IU]/mL 0.47-5 Apr 29, 2024 01:43 PM [facility] LIPID PANEL (STL) Specimen Type: PLASMA Comment: No hemolysis noted. Ordering Provider: LUCIA STEWART Report Released Date/Time: Apr 29, 2024 01:29 PM Reporting Lab: [facility] [address] [address] [phone] Performing Lab: [facility] [address] [facility] [phone] CHOLESTEROL 193 mg/dL 0-200 TRIGLYCERIDE 205 mg/dL H 0-150 CALCULATED LDL 112 mg/dL HDL(New) 40 mg/dL >40 Apr 29, 2024 01:43 PM [facility] HGA1C Specimen Type: BLOOD No comment entered. Ordering Provider: LUCIA STEWART Report Released Date/Time: Apr 29, 2024 01:29 PM Reporting Lab: [facility] [address] [facility] [phone] Performing Lab: [facility] [address] [facility] [phone] HGA1C 6.2 H 4.0-6.0 Apr 29, 2024 01:43 PM [facility] COMPREHENSIVE METABOLIC PANEL Specimen Type: PLASMA Comment: No hemolysis noted. Ordering Provider: LUCIA STEWART Report Released Date/Time: Apr 29, 2024 01:29 PM Reporting Lab: [facility] [address] [place] [phone] Performing Lab: [address] [phone] CREATININE 0.71 mg/dL 0.6-1.1 UREA NITROGEN 14.0 [...] 109.5 >60 Apr 29, 2024 01:43 PM [facility] CBC Specimen Type: BLOOD No comment entered. Ordering Provider: LUCIA STEWART Report Released Date/Time: Apr 29, 2024 01:29 PM Reporting Lab: [facility] [address] [place] [phone] Performing Lab: [address] [phone] WBC 9.3 10*3/uL 3.6-11.2 RBC 5.14 10*6/uL [...] PM 97.5 106 128/85 16 97 0 [facility] Social History: Smoking Status (Most current) and Tobacco Use (All prior to encounter date) This section includes the most current, and the historical, smoking and tobacco- related health factors from the [place] facility where the Encounter took place. Current Smoking Status This section includes the most current smoking, or tobacco-related health factor, from the [place] facility where the Encounter took place. Date/Time Current Smoking Status Comment Facil ity Apr 21, 2022 02:46 PM VA-TOBACCO FORMER USER [facility] Tobacco Use History This section includes a history of the smoking, or tobacco-related health factors, that were collected on or before the date of the Encounter. The data comes from the [place] facility where the Encounter took place. Date/Time Smoking Status/Tobacco Use Comment F acility Apr 21, 2022 02:46 PM [place]-TO[place]ACCO QUIT 5 TO < 15 YRS [facility] Mar 06, 2016 10:40 AM LIFETIME NON-USER OF TOBACCO [facility] Advance Directives: All historical and current Section Date Range: From patient's date of to the date document was created. This section includes ALL of a patient's completed or amended [place] Advance and Rescinded Directives. The entries below indicate that a directive exists for the patient, but an actual copy is not included with this document. The data comes from all [place] facilities. Date Advance Directives Provider Source Apr 06, 2015 ADVANCE DIRECTIVE DISCUSSION KEREN SKY [facility] Encounter Notes: All associated encounter notes This section contains the clinical notes associated to the Encounter. Date/Time Encounter Note(s) Provider Source Apr 11, 2024 04:13 PM OTOLARYNGOLOGY CON SULT: LOCAL TITLE: OTOLARYNGOLOGY CONSULT [facility] STANDARD TITLE: OTOLARYNGOLOGY CONSULT DATE OF NOTE: APR 11, 2024@16:13 ENTRY DATE: APR 11, 2024@16:14:16 AUTHOR: MEETA ELY COSIGNER: SHERYL RICHARD URGENCY: STATUS: COMPLETED APR 11, 2024 OTOLARYNGOLOGY-HEAD AND NECK SURGERY - NEW PATIENT CONSULT NOTE CC:hoarseness, sinusitis, post-nasal drip HPI: ALIX GRIMES is a 43 y/o WHITE FEMALE here with multiple ENT concerns. Patient reports she's had recurring sinusitis for five years. She reports she underwent nasal sinus surgery in 2008 that helped but did not fully resolve her symptoms. She notes that with every illness her voice gets worse. She reports has been unable to use nasal sprays or irrigations due to it making her gag. She reports seeing allergy at another location and they were considering allergy shots, but then she moved here, so was unable to see if they helped her. She currently takes a daily certrizine. When she feels really bad, she gets antibiotics and steroids that help with the sinus symptoms but does not help with the voice. She reports that she was classically trained and has lost an octave off her normal range. She additionally reports that sometimes when she laughs she is unable to breathe and feels like her larynx has clamped down. Pt denies ear pain, dysphagia, globus, aspiration, hemoptysis, and unintentional weight loss. 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 Indication: FOR DEPRESSION 8) MED ORGANIZER 7DAY/4 SLOT [employer]#[id number] USE PILLBOX ACTIVE DIRECTED Indication: FOR MEDICATION STORAGE/PLANNING 9) MIRTAZAPINE 45MG TAB TAKE ONE TABLET BY MOUTH ONCE A DAY ACTIVE Indication: FOR DEPRESSION 10) OMEPRAZOLE 20MG EC CAP TAKE ONE CAPSULE BY MOUTH EVERY ACTIVE (S) MORNING BEFORE A MEAL TAKE 30 MINUTES PRIOR TO FOOD. Indication: FOR GASTROESOPHAGEAL REFLUX DISEASE 11) PROCHLORPERAZINE MALEATE 10MG TAB TAKE ONE TABLET BY MOUTH ACTIVE EVERY 6 HOURS NEEDED FOR HEADACHE. *MAY CAUSE DROWSINESS* 12) TRAZODONE HCL 50MG TAB TAKE ONE TABLET BY MOUTH AT BEDTIME ACTIVE (S) FOR MOOD OR SLEEP. Indication: FOR INSOMNIA ALLERGIES: LATEX GLOVE, INFLUENZA, BEE VENOM PSH: Reviewed SH: Address: [address] [place] [address] [address] [place] [address] Employment: Reviewed Tobacco: Reviewed EtOH: Reviewed Drug abuse: none FH:Reviewed ROS: Constitutional: denies significant weight loss or weight gain. Neuro: denies headaches, vision changes, vertigo, dizziness, numbness/tingling HEENT: as noted in HPI CV: denies chest pain Resp: denies SOB GI: denies N/V, constipation, diarrhea Renal: denies hematuria/dysuria, extremity swelling Heme: no bleeding disorders Derm: no rashes PHYSICAL EXAM: Temp: 97.5 F [36.4 C] (04/11/2024 14:08) Pulse Ox: Measurement DT POx (L/MIN)(%) 04/11/2024 14:08 97 12/01/2023 13:54 96 05/22/2023 14:05 96 11/03/2022 13:30 97 PULSE: 106 (04/11/2024 14:08) RESPIRATION: 16 (04/11/2024 14:08) BLOOD PRESSURE: 128/85 (04/11/2024 14:08) WEIGHT: 227.4 lb [103.15 kg] (12/01/2023 13:54) GEN: General: Awake, NAD, slightly strained voice FACE: Normocephalic/Atraumatic. No scars or cutaneous lesions. EARS: Bilateral auricles well formed. No drainage. NOSE: External nose normal. No drainage. Pale and boggy inferior turbinates bilaterally. EYES: EOMI. Conjugate gaze. No nystagmus. Vision grossly intact. OC/OP: No oral bleeding, Mucosa moist without lesions. NECK: Supple with no LAD. Trachea midline. Mild tenderness to palpation of the larynx. CHEST: breathing comfortably, no stridor/stertor. Skin: Warm and well perfused. NEURO: Cranial nerves II-XII grossly intact, A&Ox3 LABS/IMAGING/DIAGNOSTICS: Reviewed FELL CUTTER scope from today with normal cord motion bilaterally without overlying lesions. No observed PVFM or muscle tension dysphonia. ASSESSMENT: ALIX GRIMES is a 43 y/o WHITE FEMALE with several ENT concerns. On scope exam, normal cord mobility bilaterally. She does report frequent post-nasal drip and had previously seen allergy and is interested in doing so again. She reports inability to tolerate nasal sprays. No overt signs of reflux on scope exam today, but patient is only taking intermediate dose of omeprazole, so it is reasonable to increase dose and see if any improvement in her voice. PLAN: - Allergy consult - Increase omeprazole to 40mg daily - F/u 2-3 months to see if any improvement after above /es/ Meeta Ely MD PhD Resident Physician, ENT Signed: 04/11/2024 16:30 /glen/ SHERYL RICHARD MD Staff Physician, Otolaryngology Cosigned: 04/11/2024 18:06 MEETA ELY [facility]
--- OUTSIDE RECORDS SUMMARY | 2024-05-04 13:31 | XMS_ITS | Encounter Summary ---
Author Name [facility] [place] [facility] [place] [facility] [place] Address [address] [place] [address] Care Team Providers Care Sheet Folder Name Role Phone DAMION STEWART Primary Care Provider Unavailab le Selected Encounter This section includes the information on record at [place] for the Encounter. Date/Time Encounter Type Encounter Description Reason Provider Source Dec 01, 2023 02:00 PM OFFICE O/P EST MOD 30 MIN PRIMARY CARE/MEDICINE ICD-10-CM R49.0 Dysphonia DUSTIN STEWART Encounter Template Text not used by [place] Assessments - Encounter Diagnoses This section includes the primary and secondary diagnoses documented for the Encounter. Date/Time Primary/Secondary Diagnosis Diagnosis Name Provider Source Dec 01, 2023 03:09 PM PRIMARY Dysphonia DAMION STEWART [facility] Dec 01, 2023 03:09 PM SECONDARY Anxiety disorder, unspecified DAMION STEWART [facility] Dec 01, 2023 03:09 PM SECONDARY Chronic pharyngitis DAMION STEWART [facility] Dec 01, 2023 03:09 PM SECONDARY Depression, unspecified DAMION STEWART [facility] Dec 01, 2023 03:09 PM SECONDARY Dyspnea, unspecified DAMION STEWART [facility] Dec 01, 2023 03:09 PM SECONDARY Female infertility, unspecified DEPEFRAIN,DAMION [facility] Dec 01, 2023 03:09 PM SECONDARY Post-traumatic stress disorder, chronic DEPLAURA ZUNIGAANNE [facility] Plan of Treatment: Future Appointments (+ 6 months) and Future Tests (+/- 45 days) The Plan of Treatment section includes future care activities for the patient from all [place] [facility]. This section includes future appointments and future orders which are active, pending or scheduled. Future Appointments This section includes appointments that were scheduled to occur 6 months from the date of the Encounter, up to a maximum of 20 appointments. The data comes from all [place] treatment facilities. Appointment Date/Time Appointment Type Appointme nt Facility Name Dec 11, 2023 02:00 PM AMBULATORY - PSYCHIATRY [facility] Dec 17, 2023 11:00 AM AMBULATORY - NONE [facility] Jan 05, 2024 02:30 PM AMBULATORY - PSYCHIATRY [facility] Mar 02, 2024 10:00 AM AMBULATORY - PSYCHIATRY [facility] Apr 08, 2024 01:30 PM AMBULATORY - PSYCHIATRY [facility] Apr 11, 2024 02:15 PM AMBULATORY - REHAB MEDICIN E [facility] Apr 11, 2024 03:00 PM AMBULATORY - SURGERY [facility] Apr 26, 2024 03:00 PM AMBULATORY - MEDICINE [facility] Apr 29, 2024 12:30 PM AMBULATORY - MEDICINE [facility] May 04, 2024 04:15 PM AMBULATORY - MEDICINE [facility] May 24, 2024 02:00 PM AMBULATORY - MEDICINE [facility] May 24, 2024 03:00 PM AMBULATORY - SURGERY [facility] Active, Pending, and Scheduled Orders This section includes a listing of several types of active, pending, and scheduled orders, including clinic medications orders, diagnostic test orders, procedure orders and consult orders; where the start date of the order is 45 days before the date of the Encounter or 45 days after the date of theEncounter. The data comes from all [place] treatment facilities. Test Date/Time Test Type Test Details Facility Name Dec 01, 2023 12:00 AM Laboratory - Chemi stry Order TESTOSTERONE, FREE PANEL RED/NO-GEL SERUM SP [facility] Dec 01, 2023 12:00 AM Laboratory - Chemi stry Order TSH (MA-PB) GOLD/RED SST SERUM SP [facility] Dec 01, 2023 12:00 AM Laboratory - Chemi stry Order PROLACTIN (STL-Eff 11/16) GREEN LI/HEP BLD/PLAS PLASMA SP [facility] Vital Signs: All taken on the encounter date This section contains inpatient and outpatient Vital Signs collected on the date of the Encounter. Date/Time Temperature Pulse Blood Pressure Respiratory Rate SP02 Pain Height Weight Body Mass Index Source Dec 01, 2023 02:47 PM 122/88 [facility] Dec 01, 2023 01:54 PM 98.3 91 138/94 18 96 0 69 227.4 34 [facility] Social History: Smoking Status (Most current) and Tobacco Use (All prior to encounter date) This section includes the most current, and the historical, smoking and tobacco- related health factors from the [place] facility where the Encounter took place. Current Smoking Status This section includes the most current smoking, or tobacco-related health factor, from the [place] facility where the Encounter took place. Date/Time Current Smoking Status Comment Facil ity May 22, 2023 02:00 PM VA-TOBACCO FORMER USER [facility] Tobacco Use History This section includes a history of the smoking, or tobacco-related health factors, that were collected on or before the date of the Encounter. The data comes from the [place] facility where the Encounter took place. Date/Time Smoking Status/Tobacco Use Comment F acility May 22, 2023 02:00 PM VA-TOBACCO QUIT 15 YRS OR MORE [facility] Apr 23, 2021 11:30 AM VA-TOBACCO FORMER USER [facility] Apr 23, 2021 11:30 AM [place]-TOBACCO QUIT 15 YRS OR MORE [facility] Feb 23, 2020 10:00 AM VA-TOBACCO FORMER USER [facility] Feb 23, 2020 10:00 AM VA-TOBACCO QUIT 5 TO < [address] [facility] Sep 16, 2018 03:43 PM VA-TOBACCO NEVER USED [facility] Oct 14, 2017 02:35 PM VA-TOBACCO FORMER USER [facility] Oct 14, 2017 02:35 PM VA-TOBACCO QUIT 5 TO < 15 YRS . [facility] Advance Directives: All historical and current Section Date Range: From patient's date of to the date document was created. This section includes ALL of a patient's completed or amended [place] Advance and Rescinded Directives. The entries below indicate that a directive exists for the patient, but an actual copy is not included with this document. The data comes from all [place] facilities. Date Advance Directives Provider Source Apr 06, 2015 ADVANCE DIRECTIVE DISCUSSION KEREN SKY [facility] Encounter Notes: All associated encounter notes This section contains the clinical notes associated to the Encounter. Date/Time Encounter Note(s) Provider Source Dec 01, 2023 02:26 PM PRIMARY CARE NOTE: LOCAL TITLE: PRIMARY CARE PROVIDER ESTABLISHED VISIT ST STANDARD TITLE: PRIMARY CARE NOTE DATE OF NOTE: DEC 01, 2023@14:26 ENTRY DATE: DEC 01, 2023@14:26:23 AUTHOR: DAMION STEWART EXP COSIGNER: URGENCY: STATUS: COMPLETED ESTABLISHED PATIENT [id number]: REASON FOR VISIT/CHIEF COMPLAINT: 43yo female here for f/u visit, last visit May 2023. HPI: She has a hx of dyspnea and has been tested for asthma and her prior testing (at prior [place]) has been negative. She reports in the last year she has been having more issues with shortness of breath and this seems to be triggered by laughing, coughing, or feeling like her throat is really dry. She reports feeling like she cannot get a good breath b/c it feels like her throat is closing up. She uses the albuterol and this does help. She reports her sx have been worse in the last couple weeks due to intermittent sore throat. She is also noting horseness that has been getting worse over the last several months. She reports intermittent sore throat since spring of this year. She is using zyrtec daily. She denies ongoing issues with runny nose, nasal congestion. Overall feels her hoarseness, trouble breathing, sore throats have all worsened in the last 6 months. She would also like further evaluation for PCOS. She reports a hx of infertility and irregular menstrual cycles. She reports she has a menstrual period anywhere from 20 days to 33 days. Reports periods lasting 4-5 days. --she does note issues with acne and hairgrowth on chin. --last period Nov 21 2023. WHAT IS YOUR GOAL FOR TODAY? 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 SOCIAL HISTORY: NICOTINE: quit 10 years ago ILLICIT DRUGS: none ALCOHOL: stopped drinking in Feb 2023 EXERCISE/DIET: walking a couples times/week MARITAL STATUS: , 14 year old daughter ALLERGIES: LATEX GLOVE, INFLUENZA, BEE VENOM ALLERGY REVIEW: Allergy list reviewed and remains current. MEDICATIONS: Active and Recently Outpatient Medications (excluding Supplies): Active Outpatient Medications Status 1) CELECOXIB 200MG CAP TAKE ONE CAPSULE BY MOUTH ONCE A ACTIVE DAY FOR PAIN - TAKE WITH FOOD 2) DIPHENHYDRAMINE HCL 25MG CAP TAKE ONE CAPSULE BY ACTIVE MOUTH TWICE DAILY NEEDED ANXIETY/INSOMNIA *MAY CAUSE DROWSINESS* 3) DULOXETINE HCL 20MG EC CAP TAKE TWO CAPSULES BY MOUTH ACTIVE TWICE A DAY FOR DEPRESSION DO NOT ABRUPTLY DISCONTINUE MEDICATION. 4) DULOXETINE HCL 60MG EC CAP TAKE ONE CAPSULE BY MOUTH ACTIVE (S) ONCE A DAY FOR DEPRESSION DO NOT ABRUPTLY DISCONTINUE MEDICATION. 5) METHOCARBAMOL 500MG TAB TAKE 1 TABLET BY MOUTH FOUR ACTIVE TIMES A DAY NEEDED FOR MUSCLE SPASM 6) MIRTAZAPINE 30MG TAB TAKE ONE-HALF TABLET BY MOUTH AT ACTIVE BEDTIME FOR 7 DAYS, THEN TAKE ONE TABLET AT BEDTIME FOR 14 DAYS, THEN TAKE ONE AND ONE-HALF TABLETS AT BEDTIME FOR 60 DAYS FOR DEPRESSION 7) OMEPRAZOLE 20MG EC CAP TAKE ONE CAPSULE BY MOUTH ACTIVE EVERY MORNING BEFORE A MEAL TAKE 30 MINUTES PRIOR TO FOOD. 8) TRAZODONE HCL 50MG TAB TAKE ONE TABLET BY MOUTH AT ACTIVE (S) BEDTIME FOR MOOD OR SLEEP. Inactive Outpatient Medications Status 1) CETIRIZINE HCL 10MG TAB TAKE ONE TABLET BY MOUTH ONCE A DAY FOR ALLERGY SYMPTOMS. 2) CHOLECALCIF 50MCG (D3-2,000UNIT) TAB TAKE TWO TABLETS BY MOUTH ONCE A DAY FOR VITAMIN D DEFICIENCY. 10 Total Medications MEDICATION RECONCILIATION: I have reviewed the patient's medication list with the patient and/or his/her care-benefits clerk. Handwritten corrections, additions and/or deletions were made to the list. Corrected Outpatient Medication List was provided to the patient/caregiver. REVIEW OF SYSTEMS: Neg other than as noted in HPI PHYSICAL EXAMINATION: Date Vital Measurement Qualifiers 12/01/2023 14:47 BP 122/88 12/01/2023 13:54 Temp F (C) 98.3 (36.8) Pulse 91 Respir 18 Ht in (cm) 69 (175.26) Wt lbs (kg)[BMI] 227.4 (103.15)[34*] Pain 0 POx (L/Min)(%) 96 Measurement DT WEIGHT LB(KG)[BMI] 12/01/2023 13:54 227.4(103.15)[34*] 05/22/2023 14:05 228(103.42)[34*] 11/03/2022 13:30 222.8(101.06)[33*]33.7 Gen: NAD EYE: PERRLA Cardiovascular: RRR, no murmurs, no edema Respiratory: Lungs CTAB Abd/GI: Abdomen non-distended Extremities: adequate ROM, no edema Psych: mood and affect appropriate Neuro: Alert and oriented, CN2-12 grossly intact Skin: Clear and intact DATA REVIEW: HGA1C 6.0 % 05/19/2023 09:42 HGA1C 6.0 % 05/17/2021 11:05 HGA1C 5.7 % 03/28/2020 09:01 HGA1C 6.0 % 08/25/2019 10:20 Lipid Panel: TRIGLYCERIDE 114 mg/dL 05/19/2023 09:42 [...] 09:42 BASOPHILS, ABSOLUTE 0.03 10*3/uL 05/19/2023 09:42 No PSA (LAST 10 5Y) EO data found TSH: TSH 1.260 uIU/mL 05/19/2023 09:42 VITAMIN D, 25-HYDROXY 54.7 ng/mL 05/19/2023 09:42 VITAMIN D, 25-HYDROXY 48.9 ng/mL 05/17/2021 11:05 VITAMIN D, 25-HYDROXY 41.2 ng/mL 03/28/2020 09:01 INR: No INR EO data found UA: No URINALYSIS EO data found IM - IMMUNIZATIONS ADMINISTERED Immunization Series Date Facility Reaction Info PNEUMOCOCCAL POLYSACCHARIDE PPV23 11/04/2011 [facility] TDAP 10/28/2021 [facility] CONTRAINDICATED No data available REFUSED ======= Immunization Date Facility Info COVID-19 (MODERNA), MRNA, LNP-S,* 05/22/2023 [facility] <I> COVID-19 (PFIZER), MRNA, LNP-S, * 12/01/2023 [facility] <I> COVID-19 (PFIZER), MRNA, LNP-S, * 11/26/2023 No Site <I> INFLUENZA, UNSPECIFIED FORMULATI* 12/01/2023 [facility] <I> INFLUENZA, UNSPECIFIED FORMULATI* 11/26/2023 No Site <I> INFLUENZA, UNSPECIFIED FORMULATI* 05/22/2023 [facility] <I> ASSESSMENT/PLAN: 1) Recurrent hoarseness/sore throat/dyspnea: has previously been evaluated for asthma/RAD as well as VCD and no issues found. --however, sx worse in the last 6 months and would like re-evaluation. --has been using omeprazole 20mg daily with improvement in heartburn, but other sx are persistent. --Will refer to ENT for further eval. If no findings, then may need to refer to GI for further eval. 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 --discussed criteria for diagnosis, currently does not have oliomenorrhea even though cycles do come at changing intervals. Generally her cycle lengths are w/in the normal range (21-35 days). --will get labs to eval for hyperandrogenism and will get pelvic u/s for further eval. --reports some issues with acne and abnormal hair growth. No findings on exam today. 3) [facility]an[facility] Continue current treatment. 4) Dyspnea: using albuterol PRN, medication renewed. RETURN TO CLINIC: 6 months SUMMARY STATEMENT: Plan of care has been discussed with including expected therapeutic benefits and potential side effects of prescribed medication and treatments. Itmann verbalizes understanding and is in agreement with the plan of care. Patient was instructed to keep all scheduled appointments and contact rasper machine operator for any additional problems. PREVENTION & SCREENING: MAMMO: deferring for now PAP: August 2019, neg pap and HPV ALCOHOL: Clinical Reminder not due now or within a month COLORECTAL CANCER: Clinical Reminder not due now or within a month BLOOD PRESSURE: Clinical Reminder not due now or within a month HEMOGLOBIN A1C: Clinical Reminder not due now or within a month /glen/ DAMION STEWART Staff Physician Signed: 12/01/2023 15:09 DAMION STEWART [facility] Dec 01, 2023 01:59 PM NURSING NOTE: LOCAL TITLE: V15 PACT FACE TO FACE NOTE ST STANDARD TITLE: NURSING NOTE DATE OF NOTE: DEC 01, 2023@13:59 ENTRY DATE: DEC 01, 2023@13:59:31 AUTHOR: ERIKA SWARTZ COSIGNER: URGENCY: STATUS: COMPLETED Provider Visit: Patient Identifiers : Full Name Date of Reason for visit: Established Follow-Up Mode of Arrival: Ambulatory Allergy Review: LATEX GLOVE, INFLUENZA, BEE VENOM Allergy list reviewed and remains current. Recent Vital Signs: Temperature: 98.3 F [36.8 C] (12/01/2023 13:54) Pulse: 91 (12/01/2023 13:54) Respiration: 18 (12/01/2023 13:54) B/P: 138/94 (12/01/2023 13:54) Pain: 0 (12/01/2023 13:54) Wt: 227.4 lb [103.15 kg] (12/01/2023 13:54) Ht: 69 in [175.3 cm] (12/01/2023 13:54) BMI: 33.7 POX: 96% (12/01/2023 13:54) Would you like to discuss any personal problem, family problem, alcohol use, drug use, or a mental or emotional illness? No Contact provided Primary Care phone number and encouraged to call if any questions or concerns. Review that after hours nurse line ext.[phone] and emergency room are available 01/09 for patient use. Contact verbalized good understanding. COVID-19 Immunization - L,N,P,PH,U: Refused Pfizer Monovalent COVID-19 vaccine Immunization: COVID-19 (PFIZER), MRNA, LNP-S, PF, LYN-SUCROSE, 30 MCG/0.3 ML (AGES 12+ YEARS) Refusal Reason: PATIENT DECISION Patient refuses all immunization(s) in the COVID-19 group Date Documented: 12/01/23 14:01 Influenza Immunization - L,N,P,PH,U: Deferral / Refusal The patient declines to receive the recommended dose of seasonal influenza vaccine. Immunization: INFLUENZA, UNSPECIFIED FORMULATION Refusal Reason: PATIENT DECISION Patient refuses all immunization(s) in the FLU group Date Documented: 12/01/23 14:02 /glen/ ERIKA SWARTZ LPN LICENSED PRACTIAL NURSE Signed: 12/01/2023 14:02 ERIKA SWARTZ [facility]
--- OUTSIDE RECORDS SUMMARY | 2024-05-04 13:31 | XMS_ITS | Encounter Summary ---
Author Organization [facility] Address [facility]ly [facility] [place] [address] Care Team Providers Care Manager Sound Name Role Phone Milagros Mccrary MD Primary Care Provider Unavailable Encounter Details Date Type Department Care Team (Late st Contact Info) Description 11/08/2017 Hospital Follow-up Call [facility] [place] [address] Onelia Lowe, RN Social History Tobacco Use Types Packs/Day Years Used Date Smoking Tobacco: Former Cigarettes Q uit: 04/02/2007 Smokeless Tobacco: Never Alcohol Use Standard Drinks/Week Comments No 0 (1 standard drink = 0.6 oz pur e alcohol) Comments No Sex and Gender Information Value Date Recorded Sex Assigned at Not on file Legal Sex Female 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
--- OUTSIDE RECORDS SUMMARY | 2024-05-04 13:32 | XMS_ITS | Clinical Summary ---
Author Organization [facility] Address [address] [place] [address] [place] [address] Care Team Providers Care Echo Tech Name Role Phone Unavailable Primary Care Provider Unavailabl e Source Comments [facility],non-owned Affiliates and Associated Physician Practices is amultiple site organization consisting of ambulatory clinics and hospital sitesin [place], [place], [place] and [place]. This disclosure is being madepursuant to the Care Everywhere program and may not contain all information available regarding this patient. Last updated 17.[facility] [employer] Allergies Active Allergy Reactions Criticality Noted Date Comments Lactase GI Discomfort 04/01/2020 Flu Virus Vaccine Dizziness 04/01/2020 Gluten Meal GI Discomfort 04/01/2020 Latex Urticaria Medium 04/01/2020 Social History Tobacco Use Types Packs/Day Years Used Date Smoking Tobacco: Never Smokeless Tobacco: Never Alcohol Use Standard Drinks/Week Comments Yes 0 (1 standard drink = 0.6 oz pur e alcohol) Sex and Gender Information Value Date Recorded Sex Assigned at Not on file Gender Identity Not on file Sexual Orientation Not on file Last Filed Vital Signs Vital Sign Reading Time Taken Comments Blood Pressure 120/58 04/01/2020 9:30 PM SUPERVISOR PICKING CREW Pulse 109 04/01/2020 9:47 PM SUPERVISOR PICKING CREW Temperature 37.2 C (99 F) 04/01/2020 10:03 PM SUPERVISOR PICKING CREW Respiratory Rate 21 04/01/2020 9:47 PM SUPERVISOR PICKING CREW Oxygen Saturation 100% 04/01/2020 9:47 PM SUPERVISOR PICKING CREW Inhaled Oxygen Concentration - - Weight 89.4 kg (197 lb) 04/01/2020 4:02 PM SUPERVISOR PICKING CREW Height 175.3 cm (5' 9 ) 04/01/2020 4:02 PM SUPERVISOR PICKING CREW Body Mass Index 29.09 04/01/2020 4:02 PM SUPERVISOR PICKING CREW Plan of Treatment Health Maintenance Due Date Last Done Comments LIPID TESTING 1982 MAMMOGRAM 1982 HIV SCREENING 1997 HEPATITIS C SCREENING 06/27/2000 DTAP/TDAP/TD VACCINES (1 - Tdap) 2001 HEPATITIS B VACCINE (1 of 3 - 19+ 3-dose series) 2001 COVID-19 VACCINE (1 - 2023-2 5 season) 2023 DEPRESSION SCREENING 02/10/2024 ZOSTER VACCINE (1 of 2) 2032 HIB VACCINE Aged Out No longer eligi ble based on patient's age to complete this topic HPV VACCINE Aged Out No longer eligi ble based on patient's age to complete this topic MENINGOCOCCAL (Group B) VACC INE SHARED DECISION-MAKING Aged Out No longer eligibl e based on patient's age to complete this topic MENINGOCOCCAL GROUPS A/C/Y/W VACCINE Aged Out No longer eligible b ased on patient's age to complete this topic PNEUMOCOCCAL VACCINE Aged Out No long er eligible based on patient's age to complete this topic
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
--- NOTE | 2024-05-04 13:53 | ECG_ITS ---
Test Date: 2024-05-04 14:01:14 Measurements Intervals [place] Rate: 75 P: 33 ME: 158 QRS: 58 QRSD: 101 T: 27 QT: 390 QTc: 436 Interpretive Statements SINUS RHYTHM No previous ECG available for comparison Electronically Signed On 05-05-2024 10:43:20 CDT by Domenico Porras M.D.
[2024-05-04 14:07] LABS: Basophils Percent Auto 0.3 % (0.2-1.2); Eosinophils Absolute Auto 0.2 K/mm3 (0-0.3); Eosinophils Percent Auto 2.7 % (0-4.4); Hematocrit 40.1 % (37.0-47.0); Hemoglobin 12.7 g/dL (12.0-15.0); Immature Granulocyte Absolute 0.02 K/mm3 (0.00-0.031); Immature Granulocyte Percent A 0.3 % (0-0.5); Lymphocytes Percent Auto 33.2 % (18.3-44.2); Mean Corpuscular HGB Conc 31.7 g/dl (32-36); Mean Corpuscular Hemoglobin 24.8 pg (26-34); Mean Corpuscular Volume 78.2 fl (80-100); Mean Platelet Volume 8.6 fl (7.4-10.4); Monocytes Absolute Auto 0.5 K/mm3 (0.1-0.6); Monocytes Percent Auto 7.1 % (2.6-8.5); Neutrophils Absolute Auto 3.7 K/mm3 (1.3-6.7); Neutrophils Percent Auto 56.4 % (45.5-73.1); Platelet Count Result 332 k/mm3 (150-375); Red Blood Count 5.13 M/mm3 (4.2-5.4); Red Cell Distribution Width 15.5 % (11.5-14.5); White Blood Count 6.6 K/mm3 (4.5-10.0)
[2024-05-04] MEDS: LACTATED RINGERS 1,000 ML 999 ML IV CONT (14:11)
[2024-05-04] MEDS: PROCHLORPERAZINE EDISYLATE 10 MG/2 ML VIAL IV PUSH (14:11)
[2024-05-04] MEDS: MECLIZINE HCL 25 MG TABLET PO (14:11)
--- NOTE | 2024-05-04 14:15 | ED.DIZZY ---
HPI - Dizziness General Chief Complaint: Dizziness Stated Complaint: Dizziness since this AM Time Seen by Provider: 05/04/24 12:54 History of Present Illness HPI Narrative: 43-year-old female with no pertinent past medical history presenting to the emergency room with vertigo. She states she woke up feeling vertiginous with room spinning sensations and nauseousness without vomiting. Thought was secondary to a prolonged menstrual cycle she has had for the last few weeks. She states she has regular menstrual cycles but no profound bleeding. Normal bowel movements, no vomiting, headache, vision changes. She states that she went to work and felt more dizziness with certain postural changes and sitting upper standing up. Able to ambulate and drive. Denies any chest pain shortness a breath. No abdominal pain or back pain. Was otherwise in her normal state of health. No recent injuries or illnesses. No vision or auditory changes. Related Data Allergies Allergy/AdvReac Type Severity Reaction Status Date / Time influenza A (H1N1) virus Allergy Intermediate syncope Verified 05/04/24 12:29 vaccine m-alex-split 2008 (From influenza A (H1N1)) latex Allergy Intermediate Hives Verified 05/04/24 12:29 Review of Systems Review of Systems: As reviewed above in HPI Exam Narrative: GENERAL: [Well-appearing, well-nourished, and in no acute distress.] HEAD: [Normocephalic, atraumatic.] EYES: [PERRLA and EOMI.] ENT: Nares clear, no rhinorrhea or epistaxis. Mucous membranes moist. NECK: Supple. CHEST: [Clear to auscultation. No respiratory distress.] HEART: [Regular rate and rhythm]. No murmur heard. [Normal peripheral pulses.] ABDOMEN: [Soft, nondistended], [nontender], [No rigidity or guarding] EXTREMITIES: Normal range of motion. [No edema.] SKIN: Warm, dry, no rash. NEURO: [No focal deficits]. Alert and oriented [x3.] Leftward beating horizontal nystagmus slight on my exam. Normal strength and sensation throughout both arms and legs. No ataxia in the arms or legs. PSYCH: [Normal mood and affect.] Course Vital Signs Vital signs: Vital Signs Temperature 36.8 C 05/04/24 12:41 Pulse Rate 96 05/04/24 12:41 Respiratory Rate 16 05/04/24 12:41 Blood Pressure 128/72 05/04/24 12:41 Pulse Oximetry 96 05/04/24 12:41 Oxygen Delivery Room Air 05/04/24 12:41 Temperature 36.8 C 05/04/24 12:41 Pulse Rate 96 05/04/24 12:41 Respiratory Rate 16 05/04/24 12:41 Blood Pressure 128/72 05/04/24 12:41 Pulse Oximetry 96 05/04/24 12:41 Oxygen Delivery Room Air 05/04/24 12:41 MDM - Dizziness MDM Narrative Medical decision making narrative: 43-year-old female with no pertinent past medical history presenting with vertiginous symptoms since this morning. She has signs and symptoms of BPPV or other peripheral vertigo given her profound vertiginous symptoms with postural changes and feeling better with closing her eyes or lying flat. No headache or vision changes. No neck pain or tinnitus. No auditory deficits. Normal neurological assessment. Normal gait and no ataxia in the arms or legs. Normal vital signs. Patient likely has benign vertigo and workup was ordered including CBC, CMP, EKG. Patient was given a trial of meclizine and Compazine as well as a fluid bolus. She will be re-evaluated for resolution of symptoms. Patient's laboratory studies are reassuring, she was re-evaluated with complete symptomatic resolution. At this time she is safe and stable for discharge home will be given as needed meclizine for benign positional vertigo and encouraged to follow-up with regular doctor and given instructions on exercises to do at home and if she has any worsening or new symptoms either return to the emergency department or see ENT on outpatient basis. Medical Records Attestation: I reviewed the patient's medical records. Lab Data Attestation: I reviewed the patient's lab results. 05/04/24 14:02 05/04/24 14:02 Labs: Lab Results 05/04/24 Range/Units 14:02 WBC 6.6 (4.5-10.0) K/mm3 RBC 5.13 (4.2-5.4) M/mm3 Hgb 12.7 (12.0-15.0) g/dL Hct 40.1 (37.0-47.0) % MCV 78.2 L (80-100) fl MCH 24.8 L (26-34) pg MCHC 31.7 L (32-36) g/dl RDW 15.5 H (11.5-14.5) % Plt Count 332 (150-375) k/mm3 MPV 8.6 (7.4-10.4) fl Immature Gran % (Auto) 0.3 (0-0.5) % Neut % (Auto) 56.4 (45.5-73.1) % Lymph % (Auto) 33.2 (18.3-44.2) % [place] % (Auto) 7.1 (2.6-8.5) % Eos % (Auto) 2.7 (0-4.4) % Baso % (Auto) 0.3 (0.2-1.2) % Lymph # (Auto) 2.20 (0.9-3.2) K/mm3 [place] # (Auto) 0.5 (0.1-0.6) K/mm3 Eos # (Auto) 0.2 (0-0.3) K/mm3 Baso # (Auto) 0.0 (0.0-0.1) K/mm3 Abs Immat Gran (auto) 0.02 (0.00-0.031) K/mm3 Absolute Neuts (auto) 3.7 (1.3-6.7) K/mm3 Absolute Nucleated RBC 0.000 (0.0-0.012) K/mm3 Nucleated RBC % 0.0 (0.0-0.2) % Sodium 137 (137-145) mmol/L Potassium 4.4 (3.4-5.0) mmol/L Chloride 103 (98-107) mmol/L Carbon Dioxide 26 (22-30) mmol/L Anion Gap 8 (4-12) mmol/L BUN 20 H (7-17) mg/dL Creatinine 0.77 (0.7-1.0) mg/dL Estim Creat Clear Calc 109 ml/min Estimated GFR > 60 (59 - ) Glucose 97 (65-110) mg/dL Calcium 9.0 (8.4-10.2) mg/dL Total Bilirubin 0.2 (0.2-1.3) mg/dL AST 21 (14-36) U/L ALT 16 (6-35) U/L Alkaline Phosphatase 123 (38-126) U/L Total Protein 7.0 (6.3-8.2) g/dL Albumin 4.4 (3.5-5.1) g/dL ECG Data EKG #1: Attestation: I personally reviewed and interpreted this ECG as follows: ECG completion date: 05/04/24 ECG completion time: 14:01 Interpretation: No ST segment elevations, depressions or inversions. Sinus rhythm, normal QTC interval, SD interval 158, QRS 101. Regular rate rhythm and axis. Normal sinus rhythm. Discharge Plan Discharge Clinical Impression: Benign paroxysmal positional vertigo Patient Disposition: Home, Self-Care Condition: Stable Instructions: Antibiotic Form, Benign Paroxysmal Positional Vertigo (ED) Additional Instructions: Your symptoms are very consistent with benign positional vertigo. We will send you home with meclizine which is antiemetic and medication he can take as needed for this. If this is a persistent symptom and causing trouble you can always return to the ER otherwise you will have to follow up with an perfect binder feeder offbearer locally. Patient Language: Belizean Prescriptions: New meclizine 25 mg tablet 25 mg PO TID PRN (Reason: dizziness) 10 Days Qty: 30 0RF Follow-up/Referrals: Flash Vicente MD [Physician] - 1 Week (BPPV) UNKNOWN,DOCTOR [Primary Care Provider] - Stand Alone Forms: Work/School Release IP Time of Disposition: 15:27
[2024-05-04 14:18] LABS: Alanine Aminotransferase 16 U/L (6-35); Albumin Level 4.4 g/dL (3.5-5.1); Alkaline Phosphatase 123 U/L (38-126); Anion Gap 8 mmol/L (4-12); Aspartate Amino Transferase 21 U/L (14-36); Bilirubin,Total 0.2 mg/dL (0.2-1.3); Blood Urea Nitrogen 20 mg/dL (7-17); Carbon Dioxide 26 mmol/L (22-30); Chloride 103 mmol/L (98-107); Estimated CRCL calculation 109 ml/min; Estimated Glomerular Filt Rate > 60; Glucose 97 mg/dL (65-110); Potassium 4.4 mmol/L (3.4-5.0); Sodium 137 mmol/L (137-145)
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
--- OUTSIDE RECORDS SUMMARY | 2024-05-04 15:20 | XMS_ITS | Continuity of Care Document ---
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 It does not include entries that were removed or entered in error. 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 (SNOMED CT 30309356) Active Condition [facility] Chronic maxillary sinusitis (ICD-9-CM 473.0) Active Condition [facility] Chronic post-traumatic stress disorder Active Condition [facility] Chronic rhinitis Active Condition [facility] Cognitive disorder Active Condition [facility] Constipation, unspecified Active Condition [facility] Contraception, counseling NEC (ICD-9-CM V25.09) Active Condition [facility] Cyst of thyroid Active Condition [facility] Decreased, vision NEC (ICD-9-CM 369.9) Active Condition [facility] Dermatitis or Eczema Active Condition [facility] Dyspnea on exertion Active Condition [facility] Environmental Allergies Active Condition [facility] Exposure to potentially hazardous substance Active Condition [facility] Family planning Active Condition [facility] FH: Autoimmune disease Active Condition 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 of deployment Active Condition Mar 01, 2019 Entered By: BALJINDER SEVILLA Comment: 02/2003-02/2004 [place], 09/2005-12/2006 [place], 03/2013-11/2103 [place] [facility] history of recurrant perianal abcess Active Condition [facility] House dust mite allergy Active Condition [facility] Hypersensitivity reaction (ICD-9-CM 995.3) Active Condition [facility] IBS - Irritable bowel syndrome Active Condition [facility] Insomnia Active Condition [facility] Irritable bowel syndrome Active Condition [facility] Knee: arthralgia * (ICD-9-CM 719.46) Active Condition [facility] Low back pain Active Condition [facility] Low Back Pain * (ICD-9-CM 724.2) Active Condition [facility]OS[facility] Multiple pulmonary nodules Active Condition [facility] Multiple pulmonary nodules Active Condition Mar 17, 2019 Entered By: TOM RM Comment: Seen on CT CHEST JULY 2015 [facility] Otitis Media with Effusion * (ICD-9-CM 381.4) Active Condition [facility] Pain in joint involving shoulder region Active Condition Jul 27, 2008 Entered By: FIDELIA PANG MD Comment: Right [facility] Palpitations Active Condition [facility] Pharyngitis * (ICD-9-CM 462.) Active Condition [facility] Posttraumatic Stress Disorder * (ICD-9-CM 309.81) Active Condition [facility] Prediabetes Active Condition [facility] Routine Gynecological examination (ICD-9-CM V72.31) Active Condition [facility] Tachycardia Active Condition [facility] 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) Active Condition [facility] Traumatic neurosis Active Condition J an 2019 Entered By: BALJINDER SEVILLA Comment: History of deployment psychological trauma, history of PTSD, currently meets cirteria for Other Specified Trauma-Related Disorder with prediminant anxiety symptoms [facility] Unspecified Psychosocial Circumstance Active Condition [facility] Vaginal High Risk Human Papillomavirus (HPV) DNA [...] Diagnosis: ICD-10-CM R00.0 Tachycardia, unspecified Active Diagnosis [facility] Diagnosis: ICD-10-CM R49.0 Dysphonia Active Diagnosis [facility] Diagnosis: ICD-10-CM R49.8 Other voice and resonance disorders Active Diagnosis [facility] Diagnosis: ICD-10-CM F43.12 Post-traumatic stress disorder, chronic Active Diagnosis [facility] Diagnosis: ICD-10-CM Z63.0 Problems in relationship with spouse or partner Active Diagnosis [facility] Diagnosis: ICD-10-CM Z71.81 Spiritual or christianity counseling Active Diagnosis [facility] Diagnosis: ICD-10-CM Z63.4 Disappearance and of family member Active Diagnosis [facility] Diagnosis: ICD-10-CM F43.23 Adjustment disorder with mixed anxiety and depressed mood Active Diagnosis [facility] Diagnosis: ICD-10-CM F32.A Depression, unspecified Active Diagnosis [facility] Diagnosis: ICD-10-CM N97.9 Female infertility, unspecified Active Diagnosis [facility] Medications Combined list of outpatient medications from Department of Defense and [facility] Affairs facilities.Medications provided include 1) outpatient medications from the last 15 months, and 2) patient-reported medications. Medication Details Route Status Patient Instructions Prescription Expires Prescription Number Last Dispense Date Ordering Provider Order Date Order Qty Source ALBUTEROL SO4 0.083% INHL,3ML INHALE 1 VIAL (2.5MG/3 ML) BY NEBULIZA TION EVERY 6 HOURS NEEDED FOR ASTHMA NEBULI ZATION SUSPEND ED 12/01/2024 [id number] DEPEFRAINS UZAMEDINAE 2023 30 [facility] ALBUTEROL SO4 90MCG/ACTUA T (CFC-F) INHL,ORAL,8 .5GM INHALE 2 PUFFS BY ORAL INHALATI ON FOUR TIMES A DAY NEEDED FOR ASTHMA SHAKE WELL. RINSE MOUTHPIE CE FREQUENT LY TO PREVENT CLOGGING . RESPIR ATORY (INHAL ATION) SUSPEND ED 12/01/2024 [id number] DEPAURADHA,S UZANNE 2023 2 [facility] CELECOXIB 200MG CAP TAKE ONE CAPSULE BY MOUTH ONCE A DAY FOR PAIN - TAKE WITH FOOD ORAL ACTIVE 12/01/2024 [id number] DEPAULO,S UZANNE 2024 90 [facility] CELECOXIB 200MG CAP TAKE ONE CAPSULE BY MOUTH ONCE A DAY FOR PAIN - TAKE WITH FOOD ORAL DISCONT INUED 03/03/2024 [id number] 4 Pieter STEWART 2023 90 [facility] CETIRIZINE HCL 10MG TAB TAKE ONE TABLET BY MOUTH ONCE A DAY FOR ALLERGY SYMPTOMS . ORAL SUSPEND ED 12/01/2024 [id number] 5 Pieter STEWART 2023 90 [facility] CETIRIZINE HCL 10MG TAB TAKE ONE TABLET BY MOUTH ONCE A DAY FOR ALLERGY SYMPTOMS . ORAL DISCONT INUED 11/04/2023 [id number] BINH BELLAMY 2022 30 [facility] CHOLECALCIF MOMO 50MCG (2,000UNIT) TAB TAKE TWO TABLETS BY MOUTH ONCE A DAY FOR VITAMIN D DEFICIEN CY. ORAL SUSPEND ED 12/01/2024 [id number] 5 TALONPieter 2023 200 [facility] CHOLECALCIF MOMO 50MCG (2,000UNIT) TAB TAKE TWO TABLETS BY MOUTH ONCE A DAY FOR VITAMIN D DEFICIEN CY. ORAL DISCONT INUED 11/04/2023 [id number] BINH BELLAMY 2022 200 [facility] DIPHENHYDRA MINE HCL 25MG CAP TAKE ONE CAPSULE BY MOUTH TWICE DAILY NEEDED ANXIETY/ INSOMNIA *MAY CAUSE DROWSINE SS* ORAL 12/13/2023 [id number] LEWIS BAUTISTA 2023 1 [facility] DULOXETINE HCL 20MG CAP,EC TAKE TWO CAPSULES BY MOUTH TWICE A DAY FOR DEPRESSI ON DO NOT ABRUPTLY DISCONTI NUE MEDICATI ON. ORAL ACTIVE 11/03/2024 [id number] LEWIS BAUTISTA 2023 360 [facility] DULOXETINE HCL 20MG CAP,EC TAKE TWO CAPSULES BY MOUTH ONCE A DAY FOR FIBROMYA LGIA DO NOT ABRUPTLY DISCONTI NUE MEDICATI ON. ORAL DISCONT INUED (EDIT) 11/04/2023 [id number] 4 BINH BELLAMY A 2022 180 [facility] DULOXETINE HCL 60MG CAP,EC TAKE ONE CAPSULE BY MOUTH ONCE A DAY DO NOT ABRUPTLY DISCONTI NUE MEDICATI ON. ORAL ACTIVE 01/05/2025 [id number] 5 LEWIS BAUTISTA 2023 90 [facility] DULOXETINE HCL 60MG CAP,EC TAKE ONE CAPSULE BY MOUTH ONCE A DAY FOR DEPRESSI ON DO NOT ABRUPTLY DISCONTI NUE MEDICATI ON. ORAL DISCONT INUED 11/13/2024 [id number] 4 LEWIS BAUTISTA 2023 90 [facility] DULOXETINE HCL 60MG CAP,EC TAKE ONE CAPSULE BY MOUTH ONCE A DAY DO NOT ABRUPTLY DISCONTI NUE MEDICATI ON. ORAL DISCONT INUED (EDIT) 07/23/2024 [id number] 4 LEWIS BAUTISTA 2023 90 [facility] DULOXETINE HCL 60MG CAP,EC TAKE ONE CAPSULE BY MOUTH ONCE A DAY DO NOT ABRUPTLY DISCONTI NUE MEDICATI ON. ORAL DISCONT INUED 05/22/2024 [id number] Pieter STEWART 2023 90 [facility] EPINEPHRINE (EQV-ADRENA CLICK) 0.3MG/0.3ML INJECTOR INJECT 1 PEN (0.3MG/0 .3ML) INTRAMUS CULARLY ONE-TIME FOR ALLERGIC REACTION INTRAM USCULA R 06/18/2023 [id number] BINH BELLAMYA A 2022 2 [facility] METHOCARBAM OL 500MG TAB TAKE 1 TABLET BY MOUTH FOUR TIMES A DAY NEEDED FOR MUSCLE SPASM ORAL 03/03/2024 [id number] 4 Pieter STEWART 2023 60 [facility] METHYLPREDN ISOLONE 4MG TAB DOSEPAK,21 TAKE ONE TABLET BY MOUTH DIRECTED ORAL ACTIVE YENNI ZHAO 2010 [facility] METOPROLOL SUCCINATE 50MG TAB,SA TAKE ONE-HALF TABLET BY MOUTH ONCE A DAY FOR TACHYCAR KARSON SWALLOW WHOLE, DO NOT CRUSH OR CHEW (TABLETS MAY BE CUT IN HALF). ORAL ACTIVE 07/28/2024 [id number] 5 Pieter STEWART 2024 45 [facility] MIRTAZAPINE 30MG TAB TAKE ONE-HALF TABLET BY MOUTH AT BEDTIME FOR 7 DAYS, THEN TAKE ONE TABLET AT BEDTIME FOR 14 DAYS, THEN TAKE ONE AND ONE-HALF TABLETS AT BEDTIME FOR 60 DAYS FOR DEPRESSI ON ORAL 01/23/2024 [id number] 4 LEWIS BAUTISTA 2023 108 [facility] MIRTAZAPINE 45MG TAB TAKE ONE TABLET BY MOUTH ONCE A DAY FOR DEPRESSI ON ORAL ACTIVE 04/09/2025 [id number] 5 LEWIS BAUTISTA 2024 90 [facility] MIRTAZAPINE 45MG TAB TAKE ONE TABLET BY MOUTH ONCE A DAY ORAL DISCONT INUED (EDIT) 01/05/2025 [id number] LEWIS BAUTISTA 2023 90 [facility] OMEPRAZOLE 20MG CAP,EC TAKE ONE CAPSULE BY MOUTH EVERY MORNING BEFORE A MEAL TAKE 30 MINUTES PRIOR TO FOOD. ORAL SUSPEND ED 12/01/2024 [id number] 5 Pieter STEWARTZAANDRE 2023 90 [facility] OMEPRAZOLE 20MG CAP,EC TAKE ONE CAPSULE BY MOUTH EVERY MORNING BEFORE A MEAL TAKE 30 MINUTES PRIOR TO FOOD. ORAL DISCONT INUED 07/09/2024 [id number] Pieter STEWARTZANNE 2023 90 [facility] PROCHLORPER AZINE MALEATE 10MG TAB TAKE ONE TABLET BY MOUTH EVERY 6 HOURS NEEDED FOR HEADACHE . *MAY CAUSE DROWSINE SS* ORAL ACTIVE 05/09/2024 [id number] FLAQUITA NOVAK 2024 6 [facility] TRAZODONE HCL 50MG TAB TAKE ONE TABLET BY MOUTH AT BEDTIME FOR MOOD OR SLEEP. ORAL ACTIVE 07/23/2024 [id number] 5 LEWIS BAUTISTA 2023 90 [facility] TRAZODONE HCL 50MG TAB TAKE ONE TABLET BY MOUTH AT BEDTIME FOR MOOD OR SLEEP. ORAL DISCONT INUED 05/22/2024 [id number] Pieter STEWARTZAANDRE 2023 90 [facility] TRAZODONE HCL 50MG TAB TAKE ONE-HALF TABLET BY MOUTH AT BEDTIME FOR MOOD OR SLEEP. ORAL DISCONT INUED (EDIT) 11/04/2023 [id number] 4 BINH BELLAMY 2022 45 [facility] ZZNO REPORTED USAGE(OTC,N ONVA,HERBAL ) [facility] PER PATIENT INTERVIE W ORAL ACTIVE FIDELIA PANG MD 2008 [facility] Allergies, Adverse Reactions, Alerts Combined list of [...] Propensity to adverse reaction (finding) active 2 [facility] Bee Venom Allergy to substance Dyspnea (finding), Pharyngeal swelling (finding), Anaphylaxis (disorder) Active 06/06/2021 19:02 UTC - SANDI BELLAMY

unknown if urticaria or something more serious [facility] Cat Dander Allergy to substance Nasal congestion (finding), Urticaria (disorder) Active [facility] More [facility] CATS Propensity to adverse reaction (finding) Urticaria, Nasal congestion active 9 [facility] Dust mite Allergy to substance Eye swelling (finding), Nasal congestion (finding), Urticaria (disorder) Active [facility] or More [facility] DUST MITE FECES Propensity to adverse reaction (finding) active 9 [facility] Dust mite feces Allergy to substance Active One or More [facility] DUST MITES Propensity to adverse reaction (finding) Urticaria, Nasal congestion, Swelling of structure of eye active 9 [facility] flu vaccines Drug allergy Nausea and vomiting (disorder), Syncope (disorder) Active 12/04/2014 19:52 [facility]

Per pt and documentati on from other [facility] experienced
nausea from influenza A H1N1 vaccine One or More [facility] INFLUENZA Propensity to adverse reactions to drug (finding) Nausea and vomiting active 5 [facility] INFLUENZA Propensity to adverse reactions to drug (finding) Syncope active 6 [facility] INFLUENZA Propensity to adverse reactions to drug (finding) active 9 [facility] INFLUENZA A (H1N1) Propensity to adverse reactions to drug (finding) Nausea active 1 [facility] Influenza A virus subtype H1N1 vaccine Drug allergy Nausea (finding) Active One or More [facility] LATEX Propensity to adverse reactions to drug (finding) Eruption active 5 [facility] LATEX GLOVE Propensity to adverse reactions to drug (finding) Urticaria active 6 [facility] LATEX GLOVE Propensity to adverse reactions to drug (finding) active 9 [facility] LATEX STRAP Propensity to adverse reactions to [...] issues One or More [facility] OLIVE TREE POLLEN Propensity to adverse reaction (finding) active 9 [facility] Mcgee Tree Pollen Allergy to substance Nasal congestion (finding), Eye swelling (finding), Urticaria (disorder) Active One or More [facility] OLIVE TREES Propensity to adverse reaction (finding) Urticaria, Swelling of structure of eye, Nasal congestion active 9 [facility] RAGWEED Propensity to adverse reaction (finding) Urticaria, Swelling of structure of eye, Nasal congestion active 9 [facility] RAGWEED Propensity to adverse reaction (finding) active 9 [facility] Ragweed Allergy to substance Nasal congestion (finding), Eye swelling (finding), Urticaria (disorder) Active One or More [facility] Vaccine Drug allergy Active 05/22/2012 20:38 UT - DEE ALFARO

H1n1 vaccine One or More [facility] VACCINES Propensity to adverse reactions to drug (finding) active 9 [facility] Immunizations Combined list of available immunizations from the Department of 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 Immunization Series Date Given Administered By Site Reaction Lot Number CVX Code Drug Marine Fitter Status Comments Source TDAP 2021 115 complet ed [facility] tetanus, diphtheria, acellular pertu is 2021 115 complet ed tetanus, diphtheri a, acellular pertussis 10/28/21 Recorded Ambulat ory Pharmac y PNEUMOCOCCAL, UNSPECIFIED FORMULATION 2011 PRATIK IVERSON NONE 109 complet ed 0.5ml given IM in right deltoid. Lot#: [id number]. Exp: [facility]. [facility] PNEUMOCOCCAL POLYSACCHARID E PPV23 2011 33 complet ed [facility] pneumococcal polysaccharid e, 23 valent 2011 33 complet ed pneumococ eric polysacch aride, 23 valent 11/04/11 Recorded Ambulat ory Pharmac y pneumococcal vaccine, unspecified 2011 109 complet ed Result Comment: 0.5ml given IM in right deltoid. Lot#: [id number]. Exp: 3. Ambulat ory Pharmac y PNEUMOCOCCAL, UNSPECIFIED FORMULATION 2011 109 complet ed [facility] pneumococcal vaccine, unspecified 2011 109 complet ed pneumococ eric vaccine, unspecifi ed 02/09/11 Recorded Ambulat ory Pharmac y NOVEL INFLUENZA-H1N 1-09, ALL FORMULATIONS 2009 128 complet ed [facility] Novel influenza-H1N 1-09, all formul 2009 128 complet ed Novel influenza -[id number], all formul 05/10/09 Recorded Ambulat ory Pharmac y TD(ADULT) UNSPECIFIED FORMULATION 2008 139 complet ed [facility] Td(adult) unspecified formulation 2008 139 complet ed Td(adult) unspecifi ed formulati on 02/10/08 Recorded Ambulat ory Pharmac y TETANUS GIVEN OUTSIDE (HISTORICAL) 2002 112 complet ed [employer] tetanus toxoid unspecified formulation 2002 112 complet ed tetanus toxoid unspecifi ed formulati on 03/12/02 Recorded Ambulat ory Pharmac y Results Combined list of recent chemistry, hematology and other laboratory results from Department of Defense and Veterans Affairs, ranging from 15 months to all on record, depending upon the facility. Order Name Results Value Reference Range Date Interpretation Specimen Comments Source CBC LEUKOCYTES [#/VOLUME] IN BLOOD BY AUTOMATED COUNT 9.3 10*3/u L 3.6 - 11.2 04/29 Specimen Type: BLOOD No comment entered. Ordering Provider: LUCIA STEWART Report Released Date/Time: Apr 29, 2024 01:29 PM Reporting Lab: [facility] [address] [phone] Performing Lab: [facility] [address] [phone] [facility] CBC ERYTHROCYTE S [#/VOLUME] IN BLOOD BY AUTOMATED COUNT 5.14 10*6/u L 3.60 - 5.00 04/29 H Specimen Type: BLOOD No comment entered. Ordering Provider: LUCIA STEWART Report Released Date/Time: Apr 29, 2024 01:29 PM Reporting Lab: [facility] [address] [phone] Performing Lab: [facility] [address] [phone] [facility] CBC HEMOGLOBIN [MASS/VOLUM E] IN BLOOD 12.4 g/dL 11.0 - 14.9 04/29 Specimen Type: BLOOD No comment entered. Ordering Provider: LUCIA STEWART Report Released Date/Time: Apr 29, 2024 01:29 PM Reporting Lab: [facility] [address] [address] Performing Lab: [facility] [address] [address] [facility] CBC HEMATOCRIT [VOLUME FRACTION] OF BLOOD 39.8 32.6 - 43.4 04/29 Specimen Type: BLOOD No comment entered. Ordering Provider: LUCIA STEWART Report Released Date/Time: Apr 29, 2024 01:29 PM Reporting Lab: [facility] [address] [address] Performing Lab: [facility] [address] [facility] [address] [phone] [facility] CBC MCV [ENTITIC VOLUME] BY AUTOMATED COUNT 77.4 fL 80.0 - 100.0 04/29 L Specimen Type: BLOOD No comment entered. Ordering Provider: LUCIA STEWART Report Released Date/Time: Apr 29, 2024 01:29 PM Reporting Lab: [address] [phone] Performing Lab: [address] [phone] [facility] CBC MCH [ENTITIC MASS] BY AUTOMATED COUNT 24.1 pg 27.0 - 34.0 04/29 L Specimen Type: BLOOD No comment entered. Ordering Provider: LUCIA STEWART Report Released Date/Time: Apr 29, 2024 01:29 PM Reporting Lab: [address] [phone] Performing Lab: [address] [phone] [facility] CBC MCHC [MASS/VOLUM E] BY AUTOMATED COUNT 31.2 g/dL 33.0 - 36.0 04/29 L Specimen Type: BLOOD No comment entered. Ordering Provider: LUCIA STEWART Report Released Date/Time: Apr 29, 2024 01:29 PM Reporting Lab: [facility] [address] [place] [phone] Performing Lab: [address] [phone] [facility] CBC PLATELETS [#/VOLUME] IN BLOOD BY AUTOMATED COUNT 372 10*3/u L 150 - 400 04/29 Specimen Type: BLOOD No comment entered. Ordering Provider: LUCIA STEAWRT Report Released Date/Time: Apr 29, 2024 01:29 PM Reporting Lab: [address] [address] Performing Lab: [facility] [address] [address] [facility] CBC PLATELET MEAN VOLUME [ENTITIC VOLUME] IN BLOOD BY AUTOMATED COUNT 9.4 fL 7.5 - 11.2 04/29 Specimen Type: BLOOD No comment entered. Ordering Provider: LUCIA STEWART Report Released Date/Time: Apr 29, 2024 01:29 PM Reporting Lab: [facility] [address] [phone] Performing Lab: [facility] [address] [address] [facility] CBC ERYTHROCYTE DISTRIBUTIO N WIDTH [RATIO] BY AUTOMATED COUNT 15.5 11.8 - 15.1 04/29 H Specimen Type: BLOOD No comment entered. Ordering Provider: LUCIA STEWART Report Released Date/Time: Apr 29, 2024 01:29 PM Reporting Lab: [facility] [address] [address] Performing Lab: [facility] [address] [address] [facility] CBC LYMPHOCYTES /100 LEUKOCYTES IN BLOOD BY AUTOMATED COUNT 32 04/29 Specimen Type: BLOOD No comment entered. Ordering Provider: LUCIA STEWART Report Released Date/Time: Apr 29, 2024 01:29 PM Reporting Lab: [facility] [address] [phone] Performing Lab: [facility] [address] [address] [facility] CBC MONOCYTES/1 00 LEUKOCYTES IN BLOOD BY AUTOMATED COUNT 7 04/29 Specimen Type: BLOOD No comment entered. Ordering Provider: LUCIA STEWART Report Released Date/Time: Apr 29, 2024 01:29 PM Reporting Lab: [facility] [address] [address] Performing Lab: [facility] [address] [facility] [place] [address] [facility] CBC NEUTROPHILS /100 LEUKOCYTES IN BLOOD BY AUTOMATED COUNT 58 04/29 Specimen Type: BLOOD No comment entered. Ordering Provider: LUCIA STEWART Report Released Date/Time: Apr 29, 2024 01:29 PM Reporting Lab: [facility] [address] [facility] [address] [address] Performing Lab: [facility] [address] [place] [phone] [facility] CBC EOSINOPHILS /100 LEUKOCYTES IN BLOOD BY AUTOMATED COUNT 2 04/29 Specimen Type: BLOOD No comment entered. Ordering Provider: LUCIA STEWART Report Released Date/Time: Apr 29, 2024 01:29 PM Reporting Lab: [facility] [address] [place] [phone] Performing Lab: [facility] [address] [place] [phone] [place] [address] CBC BASOPHILS/1 00 LEUKOCYTES IN BLOOD BY AUTOMATED COUNT 0 04/29 Specimen Type: BLOOD No comment entered. Ordering Provider: LUCIA STEWART Report Released Date/Time: Apr 29, 2024 01:29 PM Reporting Lab: [facility] [address] [place] [phone] Performing Lab: [facility] [address] [place] [phone] [facility] CBC LYMPHOCYTES [#/VOLUME] IN BLOOD BY AUTOMATED COUNT 2.94 10*3/u L 0.77 - 4.50 04/29 Specimen Type: BLOOD No comment entered. Ordering Provider: LUCIA STEWART Report Released Date/Time: Apr 29, 2024 01:29 PM Reporting Lab: [facility] [address] [place] [phone] Performing Lab: [facility] [address] [place] [phone] [facility] CBC MONOCYTES [#/VOLUME] IN BLOOD BY AUTOMATED COUNT 0.68 10*3/u L 0.19 - 0.80 04/29 Specimen Type: BLOOD No comment entered. Ordering Provider: LUCIA STEWART Report Released Date/Time: Apr 29, 2024 01:29 PM Reporting Lab: [address] [address] Performing Lab: [address] [address] [facility] CBC NEUTROPHILS [#/VOLUME] IN BLOOD BY AUTOMATED COUNT 5.37 10*3/u L 2.10 - 8.00 04/29 Specimen Type: BLOOD No comment entered. Ordering Provider: LUCIA STEWART Report Released Date/Time: Apr 29, 2024 01:29 PM Reporting Lab: [address] [address] Performing Lab: [address] [address] [facility] CBC EOSINOPHILS [#/VOLUME] IN BLOOD BY AUTOMATED COUNT 0.20 10*3/u L 0.00 - 0.60 04/29 Specimen Type: BLOOD No comment entered. Ordering Provider: LUCIA STEWART Report Released Date/Time: Apr 29, 2024 01:29 PM Reporting Lab: [address] [address] Performing Lab: [address] [address] [facility] CBC BASOPHILS [#/VOLUME] IN BLOOD BY AUTOMATED COUNT 0.03 10*3/u L 0.00 - 0.20 04/29 Specimen Type: BLOOD No comment entered. Ordering Provider: LUCIA STEWART Report Released Date/Time: Apr 29, 2024 01:29 PM Reporting Lab: [address] [address] Performing Lab: [address] [address] [facility] COMPREHENS BRAN METABOLIC PANEL CREATININE [MASS/VOLUM E] IN SERUM OR PLASMA 0.71 mg/dL 0.6 - 1.1 04/29 Specimen Type: PLASMA Comment: No hemolysis noted. Ordering Provider: LUCIA STEWART Report Released Date/Time: Apr 29, 2024 01:29 PM Reporting Lab: [address] [address] Performing Lab: [place] [address] [facility] [address] [facility] COMPREHENS BRAN METABOLIC PANEL UREA NITROGEN [MASS/VOLUM E] IN SERUM OR PLASMA 14.0 mg/dL 9.0 - 25.0 04/29 Specimen Type: PLASMA Comment: No hemolysis noted. Ordering Provider: LUCIA STEWART Report Released Date/Time: Apr 29, 2024 01:29 PM Reporting Lab: [place] [address] [facility] [address] Performing Lab: [place] [address] [facility] [address] [facility] COMPREHENS BRAN METABOLIC PANEL GLUCOSE [MASS/VOLUM E] IN SERUM OR PLASMA 83 mg/dL 72 - 99 04/29 Specimen Type: PLASMA Comment: No hemolysis noted. Ordering Provider: LUCIA STEWART Report Released Date/Time: Apr 29, 2024 01:29 PM Reporting Lab: [place] [address] [facility] [address] Performing Lab: [place] [address] [facility] [address] [facility] COMPREHENS BRAN METABOLIC PANEL SODIUM [MOLES/VOLU ME] IN SERUM OR PLASMA 137 meq/L 136 - 145 04/29 Specimen Type: PLASMA Comment: No hemolysis noted. Ordering Provider: LUCIA STEWART Report Released Date/Time: Apr 29, 2024 01:29 PM Reporting Lab: [place] [address] [facility] [address] Performing Lab: [facility] [address] [facility] [address] [facility] COMPREHENS BRAN METABOLIC PANEL POTASSIUM [MOLES/VOLU ME] IN SERUM OR PLASMA 3.9 meq/L 3.5 - 5 04/29 Specimen Type: PLASMA Comment: No hemolysis noted. Ordering Provider: LUCIA STEWART Report Released Date/Time: Apr 29, 2024 01:29 PM Reporting Lab: [facility] [address] [facility] [address] Performing Lab: [address] [address] [facility] COMPREHENS BRAN METABOLIC PANEL CHLORIDE [MOLES/VOLU ME] IN SERUM OR PLASMA 107 meq/L 98 - 107 04/29 Specimen Type: PLASMA Comment: No hemolysis noted. Ordering Provider: LUCIA STEWART Report Released Date/Time: Apr 29, 2024 01:29 PM Reporting Lab: [facility] [address] Performing Lab: [address] [address] [facility] COMPREHENS BRAN METABOLIC PANEL CARBON DIOXIDE, TOTAL [MOLES/VOLU ME] IN SERUM OR PLASMA 19 meq/L 22 - 31 04/29 L Specimen Type: PLASMA Comment: No hemolysis noted. Ordering Provider: LUCIA STEWART Report Released Date/Time: Apr 29, 2024 01:29 PM Reporting Lab: [facility] [address] [facility] [address] Performing Lab: [address] [address] [facility] COMPREHENS BRAN METABOLIC PANEL CALCIUM [MASS/VOLUM E] IN SERUM OR PLASMA 9.2 mg/dL 8.4 - 10.4 04/29 Specimen Type: PLASMA Comment: No hemolysis noted. Ordering Provider: LUCIA STEWART Report Released Date/Time: Apr 29, 2024 01:29 PM Reporting Lab: [facility] [address] [facility] [address] Performing Lab: [facility] [address] [facility] [address] [facility] COMPREHENS BRAN METABOLIC PANEL PROTEIN [MASS/VOLUM E] IN SERUM OR PLASMA 7.7 g/dL 6 - 8.6 04/29 Specimen Type: PLASMA Comment: No hemolysis noted. Ordering Provider: LUCIA STEWART Report Released Date/Time: Apr 29, 2024 01:29 PM Reporting Lab: [place] [address] [facility] [address] Performing Lab: [place] [address] [facility] [address] [facility] COMPREHENS BRAN METABOLIC PANEL ALBUMIN [MASS/VOLUM E] IN SERUM OR PLASMA 4.3 g/dL 3.4 - 5 04/29 Specimen Type: PLASMA Comment: No hemolysis noted. Ordering Provider: LUCIA STEWART Report Released Date/Time: Apr 29, 2024 01:29 PM Reporting Lab: [place] [address] [facility] [address] Performing Lab: [place] [address] [facility] [address] [facility] COMPREHENS BRAN METABOLIC PANEL BILIRUBIN.T OTAL [MASS/VOLUM E] IN SERUM OR PLASMA 0.2 mg/dL 0.2 - 1.2 04/29 Specimen Type: PLASMA Comment: No hemolysis noted. Ordering Provider: LUCIA STEWART Report Released Date/Time: Apr 29, 2024 01:29 PM Reporting Lab: [place] [address] [facility] [address] Performing Lab: [place] [address] [facility] [address] [facility] COMPREHENS BRAN METABOLIC PANEL ALKALINE PHOSPHATASE [ENZYMATIC ACTIVITY/VO LUME] IN SERUM OR PLASMA 113 U/L 40 - 150 04/29 Specimen Type: PLASMA Comment: No hemolysis noted. Ordering Provider: LUCIA STEWART Report Released Date/Time: Apr 29, 2024 01:29 PM Reporting Lab: [facility] [address] [facility] [address] Performing Lab: [facility] [address] [facility] [address] [facility] COMPREHENS BRAN METABOLIC PANEL ASPARTATE AMINOTRANSF ERASE [ENZYMATIC ACTIVITY/VO LUME] IN SERUM OR PLASMA 45 U/L 5 - 34 04/29 H Specimen Type: PLASMA Comment: No hemolysis noted. Ordering Provider: LUCIA STEWART Report Released Date/Time: Apr 29, 2024 01:29 PM Reporting Lab: [facility] [address] [facility] [address] Performing Lab: [facility] [address] [place] [address] [facility] COMPREHENS BRAN METABOLIC PANEL ALANINE AMINOTRANSF ERASE [ENZYMATIC ACTIVITY/VO LUME] IN SERUM OR PLASMA 13 U/L 8 - 40 04/29 Specimen Type: PLASMA Comment: No hemolysis noted. Ordering Provider: LUCIA STEWART Report Released Date/Time: Apr 29, 2024 01:29 PM Reporting Lab: [facility] [address] [facility] [address] Performing Lab: [facility] [address] [facility] [address] [facility] COMPREHENS BRAN METABOLIC PANEL GLOMERULAR FILTRATION RATE/1.73 SQ M.PREDICTED [VOLUME RATE/AREA] IN SERUM, PLASMA OR BLOOD BY CREATININE- BASED FORMULA (CKD-EPI 2020) 109.5 60 04/29 Specimen Type: PLASMA Comment: No hemolysis noted. Ordering Provider: LUCIA STEWART Report Released Date/Time: Apr 29, 2024 01:29 PM Reporting Lab: [facility] [address] [facility] [address] Performing Lab: [facility] [address] [facility] [address] [facility] HGA1C HEMOGLOBIN A1C/HEMOGLO BIN.TOTAL IN BLOOD 6.2 4.0 - 6.0 04/29 H Specimen Type: BLOOD No comment entered. Ordering Provider: LUCIA STEWART Report Released Date/Time: Apr 29, 2024 01:29 PM Reporting Lab: [address] [address] Performing Lab: [address] [address] [facility] LIPID PANEL (STL) CHOLESTEROL [MASS/VOLUM E] IN SERUM OR PLASMA 193 mg/dL 0 - 200 04/29 Specimen Type: PLASMA Comment: No hemolysis noted. Ordering Provider: LUCIA STEWART Report Released Date/Time: Apr 29, 2024 01:29 PM Reporting Lab: [address] [address] Performing Lab: [address] [address] [facility] LIPID PANEL (STL) TRIGLYCERID E [MASS/VOLUM E] IN SERUM OR PLASMA 205 mg/dL 0 - 150 04/29 H Specimen Type: PLASMA Comment: No hemolysis noted. Ordering Provider: LUCIA STEWART Report Released Date/Time: Apr 29, 2024 01:29 PM Reporting Lab: [address] [address] Performing Lab: [address] [address] [facility] LIPID PANEL (STL) CHOLESTEROL IN LDL [MASS/VOLUM E] IN SERUM OR PLASMA BY CALCULATION 112 mg/dL 04/29 Specimen Type: PLASMA Comment: No hemolysis noted. Ordering Provider: LUCIA STEWART Report Released Date/Time: Apr 29, 2024 01:29 PM Reporting Lab: [address] [address] Performing Lab: [facility] [address] [place] [address] [facility] LIPID PANEL (STL) CHOLESTEROL IN HDL [MASS/VOLUM E] IN SERUM OR PLASMA 40 mg/dL 40 04/29 Specimen Type: PLASMA Comment: No hemolysis noted. Ordering Provider: LUCIA STEWART Report Released Date/Time: Apr 29, 2024 01:29 PM Reporting Lab: [facility] [address] [place] [phone] Performing Lab: [address] [phone] [place] [address] TSH W/ REFLEX FT4 (L) THYROTROPIN [UNITS/VOLU ME] IN SERUM OR PLASMA 1.940 u[IU]/ mL 0.47 - 5 04/29 Specimen Type: PLASMA No comment entered. Ordering Provider: LUCIA STEWART Report Released Date/Time: Apr 29, 2024 01:29 PM Reporting Lab: [facility] [address] [place] [phone] Performing Lab: [address] [phone] [place] [address] FSH (STL-MA) FOLLITROPIN [MOLES/VOLU ME] IN SERUM OR PLASMA 4.2 m[IU]/ mL 05/27 Specimen Type: SERUM Comment: Unable to flag abnormal result(s), please refer to reference range(s) below: Adult female reference ranges for FSH: Follicular Phase: 2.5-10.2 mIU/mL Mid-Cycle Peak: 3.1-17.7 mIU/mL Luteal Phase: 1.5-9.1 mIU/mL Postmenopaus al: 23.0-116.3 mIU/mL Test Performed by [facility], [employer] [facility], [address] [place] [address] Rio Bermudez M.D., Ph.D., Director of Laboratories , [place] [id number] Ordering Provider: LUCIA STEWART Report Released Date/Time: May 22, 2023 03:10 PM Reporting Lab: [facility] [address] [facility] [address] Performing Lab: [facility] [address] [place] [address] [facility] LUTEINIZIN G HORMONE LUTROPIN [UNITS/VOLU ME] IN SERUM OR PLASMA 7.4 m[IU]/ mL 05/27 Specimen Type: SERUM Comment: Unable to flag abnormal result(s), please refer to reference range(s) below: Adult Female reference ranges for LH: Follicular Phase: 1.9-12.5 mIU/mL Mid-Cycle Peak: 8.7-76.3 mIU/mL Luteal Phase: 0.5-16.9 mIU/mL Postmenopaus al: 10.0-54.7 mIU/mL Test Performed by [facility], [employer] [facility], [address] [place] [address] Rio Bermudez M.D., Ph.D., Director of Laboratories , [facility] [id number] Ordering Provider: LUCIA STEWART Report Released Date/Time: May 22, 2023 03:10 PM Reporting Lab: [facility] [address] [place] [address] Performing Lab: [address] [facility] HGA1C HEMOGLOBIN A1C/HEMOGLO BIN.TOTAL IN BLOOD 6.0 4.0 - 6.0 05/18 Specimen Type: BLOOD No comment entered. Ordering Provider: LUCIA STEWART Report Released Date/Time: May 15, 2023 12:32 PM Reporting Lab: [facility] [address] [facility] [address] Performing Lab: [facility] [address] [place] [phone] [facility] TSH W/ REFLEX FT4 (STL) THYROTROPIN [UNITS/VOLU ME] IN SERUM OR PLASMA 1.260 u[IU]/ mL 0.47 - 5 05/18 Specimen Type: PLASMA No comment entered. Ordering Provider: LUCIA STEWART Report Released Date/Time: May 15, 2023 12:32 PM Reporting Lab: [address] [address] Performing Lab: [address] [phone] [place] [address] VITAMIN D, 25-HYDROXY 25-HYDROXYV ITAMIN D3 [MASS/VOLUM E] IN SERUM OR PLASMA 54.7 ng/mL 30 - 96 05/18 Specimen Type: SERUM No comment entered. Ordering Provider: LUCIA STEWART Report Released Date/Time: May 15, 2023 12:32 PM Reporting Lab: [address] [address] Performing Lab: [address] [phone] [place] [address] Vital Signs Combined list of inpatient and outpatient Vital Signs from Department of Defense and Veterans Affairs, ranging from 12 months to all on record, depending upon the facility. Vital Sign Value Date Comments Source SYSTOLIC BLOOD PRESSURE 136 04/30/19 25 12:35:51 [facility] DIASTOLIC BLOOD PRESSURE 86 025 12:35:51 [facility] PULSE OXIMETRY 97 04/29/2024 12:35:51 [facility] WEIGHT 241.2 04/29/2024 12:35:51 [facility] BMI 36 kg/m2 04/29/2024 12:35:51 [facility] PAIN 0 04/29/2024 12:35:51 [facility] HEIGHT 69 04/29/2024 12:35:51 [facility] TEMPERATURE 98.1 04/29/2024 12:35:51 [facility] PULSE 96 04/29/2024 12:35:51 [facility] RESPIRATION 18 04/29/2024 12:35:51 [facility] SYSTOLIC BLO[facility] PRESSURE 128 04/12/19 14:08:19 [facility] DIASTOLIC BLOOD PRESSURE 85 025 14:08:19 [facility] PULSE OXIMETRY 97 04/11/2024 14:08:19 [facility] PAIN 0 04/11/2024 14:08:19 [facility] TEMPERATURE 97.5 04/11/2024 14:08:19 [facility] PULSE 106 04/11/2024 14:08:19 [facility] RESPIRATION 16 04/11/2024 14:08:19 [facility] SYSTOLIC BLOOD PRESSURE 138 12/01/19 13:54:42 [facility] DIASTOLIC BLOOD PRESSURE 94 13[facility]54:42 [facility] PULSE OXIMETRY 96 12/01/2023 13:54:42 [facility] WEIGHT 227.4 12/01/2023 13:54:42 [facility] BMI 34 kg/m2 12/01/2023 13:54:42 [facility] PAIN 0 12/01/2023 13:54:42 [facility] HEIGHT 69 12/01/2023 13:54:42 [facility] TEMPERATURE 98.3 12/01/2023 13:54:42 [facility] PULSE 91 12/01/2023 13:54:42 [facility] RESPIRATION 18 12/01/2023 13:54:42 [facility] SYSTOLIC BLOOD PRESSURE 115 05/22/19 24 14:05:28 [facility] DIASTOLIC BLOOD PRESSURE 80 14:05:28 [facility] PULSE OXIMETRY 96 05/22/2023 14:05:28 [facility] WEIGHT 228 05/22/2023 14:05:28 [facility] BMI 34 kg/m2 05/22/2023 14:05:28 [facility] PAIN 2 05/22/2023 14:05:28 [facility] HEIGHT 69 05/22/2023 14:05:28 [facility] TEMPERATURE 98.6 05/22/2023 14:05:28 [facility] PULSE 89 05/22/2023 14:05:28 [facility] RESPIRATION 18 05/22/2023 14:05:28 [facility] Systolic Blood Pressure 122 mm[Hg] 10/29/19 14:39:53 [facility]ICER Diastolic Blood Pressure 83 mm[Hg] 022 14:39:53 [facility] Systolic Blood Pressure 127 mm[Hg] 11/04/19 18:30:12 [facility]IC[facility] Diastolic Blood Pressure 87 mm[Hg] 023 18:30:12 [facility] Systolic Blood Pressure 118 mm[Hg] 04/29/19 19:09:02 [facility]ICER Diastolic Blood Pressure 70 mm[Hg] 023 19:09:02 [facility]ICER Systolic Blood Pressure 144 mm[Hg] 07/12/19 15:12:18 [facility]ICER Diastolic Blood Pressure 82 mm[Hg] 021 15:12:18 [facility]ICER Systolic Blood Pressure 123 mm[Hg] 10/05/19 20 18:14:04 [facility] SPECIAL OFFICER Diastolic Blood Pressure 67 mm[Hg] 020 18:14:04 [facility] SPECIAL OFFICER Systolic Blood Pressure 117 mm[Hg] 02/22/19 15:50:23 [facility] SPECIAL [facility]ICER Diastolic Blood Pressure 72 mm[Hg] 021 15:50:23 [facility]ICER Systolic Blood Pressure 125 mm[Hg] 04/24/19 16:30:41 [facility] SPECIAL OFFICER Diastolic Blood Pressure 84 mm[Hg] 022 16:30:41 [facility] SPECIAL [facility]ICER Systolic Blood Pressure 100 mm[Hg] 10/12/19 19:00:00 One or More A Facilities SPECIAL OFFICER Diastolic Blood Pressure 67 mm[Hg] 19:00:00 One or More A Facilities SPECIAL OFFICER Systolic Blood Pressure 105 mm[Hg] 11/02/19 19:00:00 One [facility] More A Facilities SPECIAL OFFICER Diastolic Blood Pressure 63 mm[Hg] 19:00:00 One or More A Facilities SPECIAL OFFICER Systolic Blood Pressure 107 mm[Hg] 09/28/19 19:54:01 One or More A Facilities SPECIAL OFFICER Diastolic Blood Pressure 74 mm[Hg] 19:54:01 One or More A Facilities SPECIAL OFFICER Encounters Combined list of: 1) Encounters from Department of Veterans Affairs facilities going backup to the last 18 months, not all [place] inpatient encounters are included; 2) Encounters from the Department of [facility] facilities going backup to 280 months. 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 ANGIE Odom 12/23 [facility] Outpatient Encounter [id number] 12/29 [facility] Outpatient Encounter [id number] 12/30 [facility] 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 [id number] Diagnos is: ICD-10- CM 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 LARA TABARESTHIA 01/15 [facility] Outpatient Encounter [id number] 01/19 [facility] Outpatient Encounter [id number] HO LOCKETT 01/26 [facility] Outpatient Encounter [id number] 01/29 [facility] Outpatient Encounter [id number] Diagnos is: ICD-10- CM N97.9 Female inferti lity, unspeci fied JAHAIRA STEWART 01/29 [facility] Outpatient Encounter [id number] ANTHONY BUSH 01/29 [facility] Outpatient Encounter [id number] 02/03 [facility] Outpatient Encounter [id number] VEENAPAULAANTHONY 02/10 [facility] Outpatient Encounter [id number] HO LOCKETT 02/16 [facility] 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 [id number] Diagnos is: ICD-10- CM 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 LARA TAABRESTHIA 02/20 [facility] 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 [id number] Diagnos is: ICD-10- CM 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 ROD NGUYENANGIE 02/25 [facility] Outpatient Encounter [id number] HO LOCKETT [place] 03/03 [facility] 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 [id number] Diagnos is: ICD-10- CM 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 ROD NGUYENANGIE 03/10 [facility] 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 [id number] Diagnos is: ICD-10- CM 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 ROD NGUYENANGIE 04/02 [facility] 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 [id number] Diagnos is: ICD-10- CM 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 Diagnos is: ICD-10- CM F32.A Depress ion, unspeci fied MAYNAMAN,CHR ISTINE M 05/21 [facility] 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 [id number] [id number] Diagnos is: ICD-10- CM 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 ANGIE Odom 05/[address] [facility] PSYTX W PT 30 MINUTES [id number] Diagnos is: ICD-10- CM F43.23 Adjustm ent disorde r with mixed anxiety and depress ed mood Kenisha ALMARAZ 05/31 [facility] OFFICE O/P EST MOD 30 MIN 20860-6.65 [id number] Diagnos is: ICD-10- CM F43.12 Post-tr aumatic stress disorde r, chronic O'KASSI, LEWIS PERRY 06/03 [facility] Outpatient Encounter [id number] 06/03 [facility] Outpatient Encounter [id number] CATHRYNHO Paola 06/15 [facility] Outpatient Encounter [id number] CATHRYNADRIENNEO DRE Paola 06/16 [facility] 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 CATHRYNADRIENNEDusty Guevara 07/09 [facility] Outpatient Encounter [id number] [id number] SRINI ORDONEZ 07/22 [facility] OFFICE O/P EST MOD 30 MIN [id number] [id number] Diagnos is: ICD-10- CM F43.12 Post-tr aumatic stress disorde r, chronic OBrysonKASSILEWIS VICKY 07/22 [facility] 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 [id number] [id number] 486 Diagnos is: ICD-10- CM 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 ANGIE Odom 07/26 [facility] PSYTX W/PT 50 MIN 73700-5.65 [id number] 113 Diagnos is: ICD-10- CM Z63.0 Problem s in relatio nship with spouse or partner NATE CRUZ 08/06 [facility] 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 [id number] [id number] 523 Diagnos is: ICD-10- CM 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 ANGIE Odom 08/10 [facility] PSY[facility] W/PT 50 MIN [id number] [id number] 285 Diagnos is: ICD-10- CM Z63.0 Problem s in relatio nship with spouse or partner NATE CRUZ 09/08 [facility] PSYTX W/PT 50 MIN 14502-2.65 [id number] Diagnos is: ICD-10- CM Z63.0 Problem s in relatio nship with spouse or partner NATE CRUZ 09/15 [facility] Encounter [id number] [id number] 09/17 [facility] 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 [id number] [id number] Diagnos is: ICD-10- CM 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 ANGIE TABARES 09/20 [facility] W/PT 50 MIN 90112-4.65 [id number] Diagnos is: ICD-10- CM Z63.0 Problem s in relatio nship with spouse or partner NATE CRUZChelsea Tran 09/24 [facility] PS[facility] W/PT 50 MIN 27600-6.65 [id number] 737 Diagnos is: ICD-10- CM Z63.0 Problem s in relatio nship with spouse or partner NATE CRUZ JANAE Tran 10/08 [facility] 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 [id number] [id number] 453 Diagnos is: ICD-10- CM 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 ANGIE TABARES 10/18 [facility] PSYTX W/PT 50 MIN 63626-6.65 [id number] Diagnos is: ICD-10- CM Z63.0 Problem s in relatio nship with spouse or partner NATE CRUZChelsea Tran 10/29 [facility] OFFICE O/P EST MOD 30 MIN 80244-6.65 [id number] Diagnos is: ICD-10- CM F43.12 Post-tr aumatic stress disorde r, chronic LEWIS BAUTISTA 11/02 [facility] Outpatient Encounter [id number] Indu TONY 11/02 [facility] 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 85257-6.65 [id number] Diagnos is: ICD-10- CM 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 ANGIE Odom 12/16 [facility] Outpatient Encounter [id number] [id number] 12/23 [facility] OFFICE O/P EST MOD 30 MIN [id number] [id number] Diagnos is: ICD-10- CM F43.12 Post-tr aumatic stress disorde r, chronic LEWIS BAUTISTA 01/04 [facility] Outpatient Encounter [id number] [id number] 01/05 [facility] Outpatient Encounter [id number] [id number] 01/10 [facility] Outpatient Encounter [id number] [id number] YIFAN JOHN 02/17 [facility] Outpatient Encounter [id number] [id number] HO LOCKETT 02/24 [facility] Outpatient Encounter [id number] [id number] HO LOCKETT 02/25 [facility] PSYTX W/PT 50 MIN [id number] [id number] Diagnos is: ICD-10- CM Z63.0 Problem s in relatio nship with spouse or partner NATE CRUZ A 03/02 [facility] Outpatient Encounter [id number] [id number] 03/10 [facility] OFFICE O/P EST MOD 30 MIN 41050-6.65 [id number] Diagnos is: ICD-10- CM F43.12 Post-tr aumatic stress disorde rangie SRIJANA SHRESTHA 04/08 [facility] Outpatient Encounter [id number] [id number] DELMA PERSAUD 04/11 [facility] LARYNGOSCO PY TELESCOPIC [id number] [id number] Diagnos is: ICD-10- CM R49.8 Other voice and resonan ce disorde JULIA Motley 04/11 [facility] OFFICE O/P NEW LOW 30 MIN [id number] [id number] Diagnos is: ICD-10- CM R49.0 Dysphon BINH Holland 04/11 [facility] Outpatient Encounter [id number] [id number] YAEL ARZATE 04/12 [facility] Outpatient Encounter [id number] [id number] HO LOCKETT Paola 04/13 [facility] Outpatient Encounter [id number] [id number] HO LOCKETT J 04/15 [facility] Outpatient Encounter [id number] [id number] HO LOCKETT Paola 04[facility] Outpatient Encounter [id number] [id number] 04/19 [facility] Outpatient Encounter [id number] [id number] HO LOCKETT Paola 04/20 [facility] N [facility] Outpatient Encounter [id number] [id number] MARYROSAURA Leos 04/20 [facility] Outpatient Encounter [id number] [id number] HO LOCKETT Paola 04/20 [facility] Outpatient Encounter [id number] [id number] 04/22 [facility] XTRNL ECG REC UP TO 48 HRS [id number] [id number] Diagnos is: ICD-10- CM R00.0 Tachyca rdia, unspeci fied PEEWEE NEWTON 04/26 [facility] OFFICE O/P EST MOD 30 MIN [id number] [id number] Diagnos is: ICD-10- CM R00.0 Tachyca rdia, unspeci fied JAHAIRA STEWART 04/29 [facility] Outpatient Encounter [id number] [id number] 05/03 [facility] N Procedures Combined list of: 1) Procedures from Department of Veterans Affairs facilities going back up to thelast 18 months, not all VA non-surgical procedures are included; 2) All procedures from the Department of Defense facilities. Procedure Procedure Type Code Date Perfomer Comments Sourc e Delivery of Products of Conception, External Approach Delivery of Products of Conception, External Approach [id number] Ambulatory Pharmacy LARYNGOSCOPY, FLEXIBLE; DIAGNOSTIC Laryngoscopy, flexible fiberoptic; diagnostic 67636 7 Ambulatory Pharmacy COLPOSCOPY OF THE CERVIX INCLUDING UPPER/ADJACENT VAGINA; WITH BIOPSY(S) OF THE CERVIX AND ENDOCERVICAL CURETTAGE Colposcopy of the cervix including upper/adjacent vagina; with biopsy(s) of the cervix and endocervical curettage 87260 3 Ambulatory Pharmacy INSERTION OF INTRAUTERINE DEVICE (IUD) Insertion of intrauterine device (IUD) 23567 3 Ambulatory Pharmacy REMOVAL OF INTRAUTERINE DEVICE (IUD) Removal of intrauterine device (IUD) 95244 2 Ambulatory Pharmacy NASAL/SINUS ENDOSCOPY, SURGICAL, WITH MAXILLARY ANTROSTOMY; WITH REMOVAL OF TISSUE FROM MAXILLARY SINUS Nasal/sinus endoscopy, surgical, with maxillary antrostomy; with removal of tissue from maxillary sinus 99634 0 Ambulatory Pharmacy SUBMUCOUS RESECTION INFERIOR TURBINATE, PARTIAL OR COMPLETE, ANY METHOD Submucous resection turbinate, partial or complete, any method 32289 0 Ambulatory Pharmacy SEPTOPLASTY OR SUBMUCOUS RESECTION, WITH OR WITHOUT CARTILAGE SCORING, CONTOURING OR REPLACEMENT WITH GRAFT Septoplasty or submucous resection, with or without cartilage scoring, contouring or replacement with graft 34266 0 Ambulatory Pharmacy INSERTION OF INTRAUTERINE DEVICE (IUD) Insertion of intrauterine device (IUD) 90730 0 Ambulatory Pharmacy Social History Combined list of available smoking, tobacco, and other social history from Department of 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 Social History Type Response Date Comment Sour e Tobacco smoking status [facility] NEVER USED OTHER TYPE 04/29/2024 [facility] History of tobacco use [facility]CO USE FORMER CIGARETTES [facility] History of tobacco use VA-TOBACCO QUIT 1 5 YRS OR MORE 05/22/2023 [facility] Sex Representation Female 03/02/2023 Unknow n Organization History of tobacco use VA-TOBACCO FORMER USER 04/21/2022 [facility] History of tobacco use [facility]-TOBACCO FOR[facility]ER [facility] History of tobacco use VA-TOBACCO FORMER USER 02/23/2020 [facility] History of tobacco use VA-TOBACCO NEVER USED 09/16/2018 [facility] History of tobacco use VA-TOBACCO FORMER USER 10/14/2017 [facility] History of tobacco use QUIT TOBACCO >7 YEARS AGO 03/13/2017 [facility] History of tobacco use LIFETIME NON-USER OF TOBACCO 03/06/2016 [facility] History of tobacco use PREVIOUS SMOKER 11/06/2015 in her 2 0's [facility] History of tobacco use QUIT TOBACCO >12 MO and <7 YRS AGO 03/28/2015 quit in 2009 [facility] History of tobacco use QUIT TOBACCO >12 MO and <7 YRS AGO 04/18/2014 [facility] History of tobacco use TOBACCO OFFERRED PT MEDS/DECLINED 04/18/2014 [facility] History of tobacco use TOBACCO OFFERRED PT MEDS (PROVIDER) 12/13/2012 [facility] History of tobacco use QUIT TOBACCO >12 MO and <7 YRS AGO 06/01/2012 [facility] History of tobacco use TOBACCO OFFERRED PT MEDS/DECLINED 12/16/2011 [facility] History of tobacco use QUIT TOBACCO >7 YEARS AGO 02/18/2011 [facility] History of tobacco use QUIT TOBACCO >12 MO and <7 YRS AGO 01/24/2011 [facility] History of tobacco use TOBACCO OFFERRED PT MEDS (PROVIDER) 11/19/2010 [facility] History of tobacco use QUIT TOBACCO >12 MO and <7 YRS AGO 02/12/2010 [facility] History of tobacco use TOBACCO OFFERRED PT MEDS (PROVIDER) 02/21/2009 [facility] History of tobacco use QUIT TOBACCO >12 MO and <7 YRS AGO 02/13/2009 [facility] History of tobacco use QUIT TOBACCO IN THE LAST 12 MONTHS 04/18/2008 [facility] Sexual Orientation Ambula tory Pharmacy Gender identity Ambulator y Pharmacy Assessment and Plan Combined list of future care activities from Department of [facility] and [facility] facilities (e.g., assessment and plan notes, appointments, orders, and referrals). Additional future care activities may be listed in the Plan of Care section. Result Assessment and Plan Date Source Assessment and Plan No data available for this section 05/04/2024 Ambulatory Pharmacy Plan of Care List of future care activities from [facility] facilities. Additional future care activities may be listed in the Assessment and Plan section. Date/Time Care Activity Care Activity Detail Facili ty 05/04/2024 AMBULATORY - MEDICINE AMBULATORY - MEDICI [facility] Advance Directives List of completed, amended, or rescinded Advance Directives on record at Department [facility] facilities. An actual copy of the Directive is not included. Date Advance Directive Provider Source 04/06/2015 ADVANCE DIRECTIVE DISCUSSION KEREN SKY [facility] Functional Status Combined list of recent functional and cognitive assessments recorded at Department of Defense and Veterans Affairs (VA).VA Functional [place] Measurement (FIM) Scale: 1 = Total Assistance (Subject = 0% +), 2 = Maximal Assistance (Subject = 25% +), 3 = Moderate Assistance (Subject = 50% +), 4 = Minimal Assistance (Subject = 75% +), 5 = Supervision, 6 = Modified [place] (Device), 7 = Complete [place] (Timely, Safely). Assessment Date/Time Source Assessment Type Assessment Skill Assessment Score Assessment Details No data available for this section
--- OUTSIDE RECORDS SUMMARY | 2024-05-04 15:20 | XMS_ITS | Clinical Summary ---
Author Organization [facility] Address [address] [place] [address] [place] [address] Care Team Providers Care Director Of Retail Name Role Phone Unavailable Primary Care Provider Unavailabl e Source Comments [facility],non-owned Affiliates and Associated Physician Practices is amultiple site organization consisting of ambulatory clinics and hospital sitesin [place], [place], [place] and [place]. This disclosure is being madepursuant to the Care Everywhere program and may not contain all information available regarding this patient. Last updated 17.[facility] Allergies Active Allergy Reactions Criticality Noted Date [...] Comments Blood Pressure 120/58 04/01/2020 9:30 PM LIDAR TECHNICIAN Pulse 109 04/01/2020 9:47 PM LIDAR TECHNICIAN Temperature 37.2 C (99 F) 04/01/2020 10:03 PM LIDAR TECHNICIAN Respiratory Rate 21 04/01/2020 9:47 PM LIDAR TECHNICIAN Oxygen Saturation 100% 04/01/2020 9:47 PM LIDAR TECHNICIAN Inhaled Oxygen Concentration - - Weight 89.4 kg (197 lb) 04/01/2020 4:02 PM LIDAR TECHNICIAN Height 175.3 cm (5' 9 ) 04/01/2020 4:02 PM LIDAR TECHNICIAN Body Mass Index 29.09 04/01/2020 4:02 PM LIDAR TECHNICIAN Plan of Treatment Health Maintenance Due Date [...]
--- OUTSIDE RECORDS SUMMARY | 2024-05-04 15:20 | XMS_ITS | Encounter Summary ---
Author Organization [facility] Address [facility] [place] [address] Care Team Providers Care Gin Inspector Name Role Phone Milagros Mccrary MD Primary Care Provider Unavailable Encounter Details Date Type Department Care Team (Late st Contact Info) Description 11/08/2017 Hospital Follow-up Call [facility] [place] [address] Onelia Lowe, RN Social History Tobacco Use Types Packs/Day Years Used Date Smoking Tobacco: Former Cigarettes Q uit: 04/02/2007 Smokeless Tobacco: Never Alcohol Use Standard Drinks/Week Comments No 0 (1 standard drink = 0.6 oz pur e alcohol) Comments No Sex and Gender Information Value Date Recorded Sex Assigned at Not on file Legal Sex Female 8:31 AM [employer] Gender Identity Not on file Sexual Orientation Not on file documented as of this encounter Plan of Treatment Not on file documented as of this encounter Visit Diagnoses Not on filedocumented in this encounter Care Teams Gin Inspector Relationship Specialty Start Date End Date Milagros Mccrary MD PCP - General FAMILY PRACTICE 10/25/17 documented as of this encounter
--- OUTSIDE RECORDS SUMMARY | 2024-05-04 15:20 | XMS_ITS | Clinical Summary ---
Author Organization [facility] Address [address] [facility] [address] [place] [address] Phone Care Team Providers Care Scientific Software Engineer Name Role Phone Unavailable Primary Care Provider [...] STL ABSTRACTION Provider, Abstract 04/09/2024 3:02 PM GRID MAKER - 04/09/2024 8:47 PM GRID MAKER Emergency [facility] Emergency Services [address] [place] [address] Surinder Rivera MD Palpitations (Primary Dx); [...] on file Legal Sex Female 2:56 PM GRID MAKER Gender Identity Not on file Sexual Orientation Not on file Last Filed Vital Signs Vital Sign Reading Time Taken Comments Blood Pressure 110/77 04/09/2024 8:42 PM GRID MAKER Pulse 95 04/09/2024 8:36 PM GRID MAKER Temperature 37.1 C (98.7 F) 04/09/2024 3:00 PM GRID MAKER Respiratory Rate 12 04/09/2024 8:34 PM GRID MAKER Oxygen Saturation 98% 04/09/2024 8:36 PM GRID MAKER Inhaled Oxygen Concentration - - Weight 107 kg (236 lb) 04/09/2024 3:00 PM GRID MAKER Height 175.3 cm (5' 9 ) 04/09/2024 3:00 PM GRID MAKER Body Mass Index 34.85 04/09/2024 3:00 PM GRID MAKER Plan of Treatment Health Maintenance Due Date [...] 5TH GEN Timed Study 04/09/2024 6:[address] HEAD WO CONTRAST Stat 04/09/2024 4 :52 PM GRID MAKER D-DIMER Stat 04/09/2024 4:19 PM GRID MAKER HCG QUALITATIVE, SERUM Stat 04/09/2024 4:19 PM GRID MAKER MAGNESIUM LEVEL Stat 04/09/2024 4:19 PM GRID MAKER TROPONIN BASELINE, 5TH GEN Stat 04/09/2024 4:19 PM GRID MAKER COMPREHENSIVE METABOLIC PANEL Stat 04/09/2024 4:19 PM GRID MAKER CBC WITH DIFFERENTIAL Stat 04/09/2024 4:19 PM GRID MAKER XR CHEST PA AND LATERAL 2 VW Stat 04/09/2024 3:48 PM GRID MAKER EKG 12-LEAD Stat 04/09/2024 3:00 PM GRID MAKER from Last 3 Months Results * TROPONIN 2 HR, 5TH GEN (04/09/2024 6:03 PM GRID MAKER) TROPONIN T, 2 HR 5TH GEN <6 <=10 ng/L 04/09/2024 6:25 PM GRID MAKER [facility] [employer] [facility] Blood Collection / Unknown 04/09/2024 6:03 PM GRID MAKER 04/09/2024 6:13 PM GRID MAKER Narrative [facility] - 04/09/2024 6:25 PM GRID MAKER Troponin Undetectable Delay in collection of timed specimen beyond recommended collection interval. Results must be interpreted in clinical context. Unable to calculate delta. us Surinder Rivera MD CHEMISTRY ORDERABLES Final Resu lt [facility] [employer] [facility] CLIA # [id number] [address] [place] [id number] * CT HEAD WO CONTRAST (04/09/2024 4:52 PM GRID MAKER) Anatomical Region Laterality Modality Head Computed Tomogra phy 04/09/2024 4:52 PM GRID MAKER Impressions 04/09/2024 5:03 PM GRID MAKER IMPRESSION: Normal CT head The examination was performed with the adjustment of mA according to the patient size and/or the use of Iterative Reconstruction Technique. DICTATION LOCATION: Location [address] [place] [address] Narrative 04/09/2024 5:03 PM GRID MAKER EXAM; CT HEAD NONCONTRAST DATE: 04/09/2024 4:52 [...] Iterative Reconstruction Technique. DICTATION LOCATION: Location - [facility] Surinder Rivera MD CT ORDERABLES Final Result * TROPONIN BASELINE, 5TH GEN (04/09/2024 4:19 PM GRID MAKER) TROPONIN T, BASELINE 5TH GEN <6 <=10 ng/L 04/09/2024 4:50 PM GRID MAKER [facility] [employer] [facility] Blood Collection / Unknown 04/09/2024 4:19 PM GRID MAKER 04/09/2024 4:37 PM GRID MAKER Narrative [facility] - 04/09/2024 4:50 PM GRID MAKER Troponin Undetectable Surinder Rivera MD CHEMISTRY ORDERABLES Final Resu lt [facility] [employer] [facility] CLIA # [id number] [facility] [address] [place] [address] * HCG QUALITATIVE, BLOOD (04/09/2024 4:19 PM GRID MAKER) [facility] HCG QUAL, BLOOD Negative Negative 04/09/2024 4:48 PM [facility] [facility] Blood Collection / Unknown 04/09/2024 4:19 PM GRID MAKER 04/09/2024 4:37 PM GRID MAKER [facility] [employer] [facility] - 04/09/2024 4:48 PM GRID MAKER hCG sensitive to as little as 10 mIU/mL for serum. Surinder Rivera MD CHEMISTRY ORDERABLES Final Resu lt Performing Organization Address [facility]/ZIP Co de Phone Number [facility] [employer] [facility] CLIA # [id number] [address] [address] * (ABNORMAL) CBC WITH DIFFERENTIAL (04/09/2024 4:19 PM GRID MAKER) [facility] WBC 6.8 4.0 - 11.0 K/uL 04/09/2024 4:28 PM [facility] [facility] RBC 4.86 4.20 - 5.40 M/uL 04/09/2024 4:28 PM [facility] [facility] HEMOGLOBIN 12.3 11.9 - 15.1 g/dL 04/09/2024 4:28 PM [facility] [facility] HEMATOCRIT 38.4 38.0 - 47.0 % 04/09/2024 4:28 PM [facility] [facility] MCV 79.0(L) 80.0 - 98.0 fL 04/09/2024 4:28 PM [facility] [facility] MCH 25.3(L) 26.0 - 34.0 pg 04/09/2024 4:28 PM [facility] [employer] [facility] MCHC 32.0 31.0 - 37.0 g/dL 04/09/2024 4:28 PM GRID MAKER [facility] RDW 14.8(H) 11.5 - 14.5 % 04/09/2024 4:28 PM GRID MAKER [facility] [place] RDW-STDEV 42.6 34.0 - 54.0 fL 04/09/2024 4:28 PM GRID MAKER [facility] [place] PLATELETS 314 150 - 400 K/uL 04/09/2024 4:28 PM GRID MAKER [facility] [place] MPV 8.9 8.5 - 12.5 fL 04/09/2024 4:28 PM GRID MAKER [facility] [place] NEUTROPHILS 58 50 - 70 % 04/09/2024 4:28 PM GRID MAKER [facility] [place] LYMPHOCYTES 32 20 - 40 % 04/09/2024 4:28 PM GRID MAKER [facility] [place] MONOCYTES 8 2 - 8 % 04/09/2024 4:28 PM GRID MAKER [facility] [place] EOSINOPHILS 2 1 - 3 % 04/09/2024 4:28 PM GRID MAKER [facility] [place] BASOPHILS 0 0 - 1 % 04/09/2024 4:28 PM GRID MAKER [facility] [place] IMMATURE GRANULOCYTES 0 0 - 2 % 04/09/2024 4:28 PM GRID MAKER [facility] [place] NEUTROPHIL ABSOLUTE 3.90 1.80 - 7.70 K/uL 04/09/2024 4:28 PM GRID MAKER [facility] [place] LYMPHOCYTE ABSOLUTE 2.13 1.00 - 3.30 K/uL 04/09/2024 4:28 PM GRID MAKER [facility] [place] MONOCYTE ABSOLUTE 0.52 0.00 - 0.80 K/uL 04/09/2024 4:28 PM GRID MAKER [facility] [place] EOSINOPHIL ABSOLUTE 0.16 0.00 - 0.45 K/uL 04/09/2024 4:28 PM GRID MAKER [facility] [place] BASOPHILS ABSOLUTE 0.03 0.00 - 0.20 K/uL 04/09/2024 4:28 PM GRID MAKER [facility] [place] IMMATURE GRANULOCYTES ABSOLUTE 0.02 0.00 - 0.31 K/uL 04/09/2024 4:28 PM GRID MAKER [facility] [place] Blood Collection / Unknown 04/09/2024 4:19 PM GRID MAKER 04/09/2024 4:26 PM GRID MAKER Surinder Rivera MD HEMATOLOGY ORDERABLES Final Res ult Performing Organization Address City/[facility]/ZIP Co de Phone Number [facility] CLIA # [id number] [address] [place] [address] * D-DIMER (04/09/2024 4:19 PM GRID MAKER) D-DIMER QUANT <0.27 <=0.50 ug/mL FEU 04/09/2024 4:41 PM GRID MAKER [facility] Blood Collection / Unknown 04/09/2024 4:19 PM GRID MAKER 04/09/2024 4:30 PM GRID MAKER Narrative [facility] [place] - 04/09/2024 4:41 PM GRID MAKER D-Dimer assay cutoff value for exclusion of DVT and/or PE is <0.50 ug/mL FEU. Surinder Rivera MD HEMATOLOGY ORDERABLES Final Res ult Performing Organization Address [facility] Co de Phone Number [facility] [employer] [facility] CLIA # [id number] [address] [place] [address] * MAGNESIUM LEVEL (04/09/2024 4:19 PM GRID MAKER) Pathologist [facility] MAGNESIUM 2.1 1.6 - 2.6 mg/dL 04/09/2024 4:50 PM GRID MAKER [facility] [employer] [facility] Blood Collection / Unknown 04/09/2024 4:19 PM GRID MAKER 04/09/2024 4:38 PM GRID MAKER Surinder Rivera MD CHEMISTRY ORDERABLES Final Resu lt Performing Organization Address [facility]/ZIP Co de Phone Number [facility] CLIA # [id number] [address] [place] [address] * (ABNORMAL) COMPREHENSIVE METABOLIC PANEL (04/09/2024 4:19 PM GRID MAKER) SODIUM 140 136 - 145 mmol/L 04/09/2024 4:50 PM [facility] [employer] [place] POTASSIUM 4.1 3.5 - 5.1 mmol/L 04/09/2024 4:50 PM [facility] [place] CHLORIDE 104 98 - 107 mmol/L 04/09/2024 4:50 PM [facility] [place] CO2 27 22 - 29 mmol/L 04/09/2024 4:50 PM [facility] [place] CALCIUM 9.1 8.6 - 10.0 mg/dL 04/09/2024 4:50 PM [facility] [place] BUN 16 6 - 20 mg/dL 04/09/2024 4:50 PM [facility] [place] CREATININE 1.39(H) 0.51 - 0.95 mg/dL 04/09/2024 4:50 PM [facility] [place] GLUCOSE 107(H) 74 - 99 mg/dL 04/09/2024 4:50 PM [facility] [place] TOTAL PROTEIN 6.8 6.6 - 8.7 g/dL 04/09/2024 4:50 PM [facility] [place] ALBUMIN 4.3 4.0 - 5.0 g/dL 04/09/2024 4:50 PM [facility] [place] BILIRUBIN TOTAL <0.2 <=1.2 mg/dL 04/09/2024 4:50 PM [facility] [place] ALKALINE PHOSPHATASE 117(H) 35 - 104 U/L 04/09/2024 4:50 PM [facility] [place] AST 11 <40 U/L 04/09/2024 4:50 PM [facility] [employer] [facility] [place] ALT 12 <=33 U/L 04/09/2024 4:50 PM [facility] [place] GFR 49(L) >=60 mL/min/1.7 3 sq meter 04/09/2024 4:50 PM [facility] [place] Comment:eGFR calculated with 2020 CKD-EPI equation. Vegetarian diet, extremely high or low muscle mass, and may affect results. Cystatin C with Glomerular Filtration Rate is a suitable alternative for these patients. ANION GAP 9 5 - 15 mmol/L 04/09/2024 4:50 PM GRID MAKER [facility] Blood Collection / Unknown 04/09/2024 4:19 PM GRID MAKER 04/09/2024 4:38 PM GRID MAKER Surinder Rivera MD CHEMISTRY ORDERABLES Final Resu lt [facility] CLIA # [id number] [address] [place] [address] * XR CHEST PA AND LATERAL 2 VW (04/09/2024 3:48 PM GRID MAKER) Anatomical Region Laterality Modality Chest Computed Radiogr aphy 04/09/2024 3:4 8 PM GRID MAKER Impressions 04/09/2024 3:52 PM GRID MAKER IMPRESSION: Normal chest x-ray. DICTATION LOCATION: Location 1 - [facility] Narrative 04/09/2024 3:52 PM GRID MAKER EXAM: PA AND LATERAL CHEST DATE: 04/09/2024 [...] chest x-ray. 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: : 1980 Requested By: Order Number: [id number] Reading MD: Eladio Carter Measurements Intervals [place] Rate: 93 P: 59 SC: 169 QRS: 95 QRSD: 76 T: 30 QT: 334 QTc: 417 Interpretive Statements SINUS RHYTHM BORDERLINE RIGHT AXIS DEVIATION [QRS AXIS > 90] LOW QRS VOLTAGE IN PRECORDIAL LEADS [QRS DEFLECTION < 1.0 mV IN CHEST LEADS] NONSPECIFIC T-WAVE ABNORMALITY Electronically Signed On 04-10-2024 9:00:59 GRID MAKER by Eladio Carter Procedure Note Eladio Carter MD - 04/10/2024 [facility] [address], [place] [address] Test Date: 2024-04-09 Pat Name: ALIX GRIMES Department: 5003 Room: Gender: Female 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: : 1980 Requested By: Order Number: [id number] Reading MD: Eladio Carter Measurements Intervals [place] Rate: 93 P: 59 SC: 169 QRS: 95 QRSD: 76 T: 30 QT: 334 QTc: 417 Interpretive Statements SINUS RHYTHM BORDERLINE RIGHT AXIS DEVIATION [QRS AXIS > 90] LOW QRS VOLTAGE IN PRECORDIAL LEADS [QRS DEFLECTION < 1.0 mV IN CHESTLEADS] NONSPECIFIC T-WAVE ABNORMALITY Electronically Signed On 04-10-2024 9:00:59 GRID MAKER by Eladio Carter us Surinder Rivera MD ECG ORDERABLES Final Result INTERFACE SYSTEM Refer to clinic/hospital department from Last [address] [place] [address] [employer]
== END 2024-05-04 15:54 | disposition home or self-care (01) ==
PROVIDERS: Emergency Provider Student in an Organized Health Care Education/Training Program
DX: H81.10 Benign paroxysmal vertigo, unspecified ear (principal)
CPT/HCPCS: 36415; 80053; 85025; 93005; 96361; 96374; 99284; A9270; J0780; J7120